=== PATIENT | male | born 1950 | race Caucasian/White ===

== ENCOUNTER 2022-08-03 12:00 | Outpatient (CLI) | payer MEDICARE, OTHER, SELFPAY | END 2022-08-03 12:01 | disposition home or self-care (01) | PROVIDERS: PCP Internal Medicine; Visit Provider Internal Medicine | DX: Z00.00 Encounter for general adult medical examination without abnormal findings (principal); I10 Essential (primary) hypertension; Z13.6 Encounter for screening for cardiovascular disorders | CPT/HCPCS: 80048; 80061 ==

== ENCOUNTER 2023-01-25 11:15 | Outpatient (REF) | payer MEDICARE, OTHER, SELFPAY ==
[2023-01-25 11:44] LABS: Basophils Percent Auto 1.3 % (0.0-3.0); Eosinophils Percent Auto 7.3 % (0.0-7.0); Hematocrit 40.5 % (37.0-53.0); Hemoglobin* 13.7 gm/dL (13.5-17.5); Immature Granulocytes Pct Auto 0.3 %; Lymphocytes Percent Auto 14.1 % (20-44); Mean Corpuscular HGB Conc 34 gm/dL (32-36); Mean Corpuscular Hemoglobin 31 pg (26-34); Mean Corpuscular Volume 91 fL (80-100); Monocytes Percent Auto 25.3 % (0.0-11.0); Neutrophils Percent Auto 51.7 % (42.0-72.0); Platelet Count* 228 K/uL (140-440); RDW Coefficient of Variation % 13.2 % (11.5-15.5); Red Blood Count 4.47 m/uL (4.30-5.90); White Blood Count* 3.83 K/uL (4.50-11.00)
[2023-01-25 12:04] LABS: Slide Review Reflex No
== END 2023-01-25 11:16 | disposition home or self-care (01) ==
LOC: NFLDREF 11:15
PROVIDERS: PCP Internal Medicine
DX: C88.0 Waldenstrom macroglobulinemia (principal); D70.2 Other drug-induced agranulocytosis; Z79.899 Other long term (current) drug therapy
CPT/HCPCS: 85025

== ENCOUNTER 2023-02-01 12:05 | Outpatient (REF) | payer MEDICARE, OTHER, SELFPAY ==
[2023-02-01 12:32] LABS: Basophils Percent Auto 1.2 % (0.0-3.0); Eosinophils Percent Auto 4.1 % (0.0-7.0); Hematocrit 41.5 % (37.0-53.0); Hemoglobin* 13.7 gm/dL (13.5-17.5); Immature Granulocytes Pct Auto 0.5 %; Mean Corpuscular HGB Conc 33 gm/dL (32-36); Mean Corpuscular Hemoglobin 30 pg (26-34); Mean Corpuscular Volume 92 fL (80-100); Monocytes Percent Auto 20.5 % (0.0-11.0); Neutrophils Percent Auto 61.7 % (42.0-72.0); Platelet Count* 246 K/uL (140-440); RDW Coefficient of Variation % 13.7 % (11.5-15.5); Red Blood Count 4.53 m/uL (4.30-5.90); White Blood Count* 4.34 K/uL (4.50-11.00)
[2023-02-01 12:34] LABS: Slide Review Reflex No
== END 2023-02-01 12:06 | disposition home or self-care (01) ==
LOC: NPINS 12:05
PROVIDERS: PCP Internal Medicine
DX: C88.0 Waldenstrom macroglobulinemia (principal); D70.2 Other drug-induced agranulocytosis; Z79.899 Other long term (current) drug therapy
CPT/HCPCS: 85025

== ENCOUNTER 2023-03-01 11:10 | Outpatient (REF) | payer MEDICARE, OTHER, SELFPAY ==
[2023-03-01 12:56] LABS: Basophils Absolute Auto 0.03 K/uL (0.00-0.30); Basophils Percent Auto 0.3 % (0.0-3.0); Eosinophils Absolute Auto 0.16 K/uL (0.00-0.50); Eosinophils Percent Auto 1.9 % (0.0-7.0); Hematocrit 43.1 % (37.0-53.0); Hemoglobin* 14.1 gm/dL (13.5-17.5); Immature Granulocytes Abs Auto 0.27 K/uL (0.00-0.30); Immature Granulocytes Pct Auto 3.1 %; Lymphocytes Percent Auto 6.8 % (20-44); Mean Corpuscular HGB Conc 33 gm/dL (32-36); Mean Corpuscular Hemoglobin 31 pg (26-34); Mean Corpuscular Volume 94 fL (80-100); Neutrophils Percent Auto 73.9 % (42.0-72.0); Platelet Count* 253 K/uL (140-440); RDW Coefficient of Variation % 13.5 % (11.5-15.5); Red Blood Count 4.61 m/uL (4.30-5.90); White Blood Count* 8.62 K/uL (4.50-11.00)
[2023-03-01 12:57] LABS: Albumin* 4.1 g/dL (3.3-5.0); Chloride* 92 mmol/L (96-114)
[2023-03-01 12:58] LABS: Potassium* 3.1 mmol/L (3.6-5.1); Slide Review Reflex No; Sodium* 139 mmol/L (135-149)
[2023-03-01 13:00] LABS: Anion Gap 12 mEq/L (7-15); Aspartate Amino Transferase* 34 U/L (12-35); Blood Urea Nitrogen* 17 mg/dL (7-30); Carbon Dioxide* 35 mmol/L (20-32); Estimated Glomerular Filt Rate 79 ml/min; Total Protein* 6.7 g/dL (6.0-8.3)
[2023-03-01 13:01] LABS: Alanine Aminotransferase* 16 U/L (4-50); Alkaline Phosphatase* 62 U/L (40-150); Calcium* 9.2 mg/dL (8.4-10.6); Glucose* 155 mg/dL (60-115)
[2023-03-03 02:15] LABS: Immunoglobulin M 203 mg/dL (35-263)
== END 2023-03-01 11:11 | disposition home or self-care (01) ==
LOC: NPINS 11:10
PROVIDERS: PCP Internal Medicine; Visit Provider Internal Medicine Hematology
DX: C88.0 Waldenstrom macroglobulinemia (principal)
CPT/HCPCS: 80053; 82784; 85025

== ENCOUNTER 2024-01-13 15:58 | Outpatient (CLI) | payer MEDICARE, OTHER, SELFPAY ==
--- OUTSIDE RECORDS SUMMARY | 2024-01-13 15:39 | XMS_ITS | Clinical Summary ---
Author Organization [facility] Address [place], [place] [address] Care Team Providers Care Vocational Education Teacher Name Role Phone Pcp, No Primary Care Provider Unavailabl e Allergies Active Allergy Reactions Criticality Noted Date Comments Azithromycin 08/19/2006 intol diarrhea Medications Medication Sig Dispensed Refills Start Date End Date Status ASPIRIN 81 MG TAB take 1 tablet (81mg) by oral route once daily 0 Active multivitamin (MVI) tablet Take 1 tablet by mouth once daily. 0 03/20/2011 Active riTUXimab (RITUXAN) 10 mg/mL injection Inject intravenous one time. One time weekly for 4 weeks 0 01/27/2013 Active hydrochlorothiazid e (HCTZ) 25 mg tabletIndications: hypertension Take 1 tablet by mouth once daily. Indications: HYPERTENSION 90 tablet 3 01/27/2013 Active Active Problems Problem Noted Date Diagnosed Date Abnormal abdominal CT scan 06/02/2011 Overview (06/02/2011): Colonoscopy 05/2011 normal repeat in 10 years Aortic root dilation 12/01/2010 Overview (03/20/2011): 4.4 cm ascending aorta. ultrasound in 1 year Unspecified essential hypertension 08/19/2006 Macroglobulinemia 08/19/2006 Overview (08/19/2006): with peripheral neuropathy Unspecified sleep apnea 08/19/2006 Overview (08/19/2006): uses CPAP Diplopia 08/19/2006 Other specified pervasive de velopmental disorders, current or active state 08/19/2006 Overview (08/19/2006): aspergers syndrome Other specified idiopathic peripheral neuropathy Melanoma in situ of upper extremity Overview (09/13/2008): left shoulder. 09/08 Immunizations Name Administration Dates Next Due AMB Influenza, IIV3 (Age >=3 years)(Flu [facility]) 02/18/2012 Influenza, IIV3 (Age >=3 years) 03/29/2013 Family History Medical History Relation Name Comments Cancer Father blood Other Father parkinsons Cancer-breast Mother Other Mother Guillain-[place] syndrome/peripheral neuropathy Other Son [place] Relation Name Status Comments Father (Age 73) parkinsons /blood ca Mother Alive Son Social History Tobacco Use Types Packs/Day Years Used Date Smoking Tobacco: Never Smokeless Tobacco: Never Tobacco Cessation:Counseling Given: Yes Alcohol Use Standard Drinks/Week Comments Yes 0 (1 standard drink = 0.6 oz pur e alcohol) occas Sex and Gender Information Value Date Recorded Sex Assigned at Not on file Gender Identity Not on file Sexual Orientation Not on file Obstetrics History Last Filed Vital Signs Vital Sign Reading Time Taken Comments Blood Pressure 115/66 01/27/2013 7:36 AM CDT Pulse 91 01/27/2013 7:36 AM CDT Temperature 36.6 ??C (97.9 ??F) 01/27/2013 7:36 AM CD T Respiratory Rate - - Oxygen Saturation 98% 01/27/2013 7:36 AM CDT Inhaled Oxygen Concentration - - Weight 81.6 kg (179 lb 12.8 oz) 01/27/2013 7:36 AM CDT Height 188 cm (6' 2.02) 01/27/2013 7:36 AM CDT Body Mass Index 23.07 01/27/2013 7:36 AM CDT Plan of Treatment Health Maintenance Due Date Last Done Comments Tdap 1959 Depression screening for age 12+ 1960 BMI (ht and wt on same day) for age 18+ 1966 Hepatitis C screening for age 18-79 1966 Tetanus booster 1968 Zoster (shingles) series for age 50+ (1 of 2) 1998 RSV vaccine for adults or pr egnancy (1 - 1-dose 60+ series) 2008 Pneumococcal series for age 65+ (1 of 1 - PCV) 2013 Lipids for age 45-75 12/31/2016 01/01/2012, 08/23/2008, 08/11/2007 Colonoscopy through age 75 06/02/202106/02, 11/07/2010 (Declined) COVID-19 vaccine series ( season) 2024 Influenza for age 65+ 01/02/2024 03/29/2013, 012 Procedures Procedure Name Priority Date/Time Associated Diagnosis Comments LIPID PANEL W REFLEX MEASURED LDL Routine 01/01/2012 10:37 AM CDT Screening for other and unspecified cardiovascular conditions from Last 3 Months or Most Recently Relevant to Health Maintenance Results * (ABNORMAL) LIPID PANEL W REFLEX MEASURED LDL (01/01/2012 10:37 AM CDT) CHOLESTEROL,TOTAL 112 100 - 199 mg/dL 01/01/2012 11:28 AM [facility] TRIGLYCERIDES 76 <150 mg/dL 01/01/2012 11:28 AM [facility] HDL CHOLESTEROL 30(L) >40 mg/dL 2 11:28 AM [facility] CHOL/HDL RATIO 3.73 <4.50 01/01/2012 11:28 AM [facility] LDL CHOLESTEROL 67 >=0 mg/dL 2 11:28 AM [facility] PATIENT STATUS FASTING 01/01/2012 11:28 AM [facility] Blood specimen (specimen) BLOOD SPECIMEN / Unknown 01/01/2012 10:37 AM CDT 01/01/2012 10:37 AM CDT Gamal Browne MD CHEMISTRY [facility] [address] [place] [address] from Last 3 Months or Most Recently Relevant to Health Maintenance Care Teams Vocational Education Teacher Relationship Specialty Start Date End Date Pcp, No . PCP - General 05/29/13
--- OUTSIDE RECORDS SUMMARY | 2024-01-13 15:40 | XMS_ITS ---
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 09/08 Neuropathy Peripheral 07/17/2016 Waldenstrom's Macroglobulinemia 03/27/2015 Ectasia Thoracic Aortic 12/01/2010 Overview (02/04/2018): Overview: 4.4 cm ascending aorta. ultrasound in 1 year Asperger's Disorder 08/19/2006 Overview (02/04/2018): Overview: aspergers syndrome Current Oncology Plans Zanubrutinib* Plan Start Date:12/31/2022 Plan Provider:Justin Snider M.D., Ph.D. Linked Problems Neutropenia Drug Induced (HC C)Waldenstrom's Macroglobulinemia (HCC) Treatment Medications Current Day (Day 1 , Cycle 5 - Planned for 11/22/2023) Next Day (Day 1, Cycle 6 - Planned for 12/20/2023) zanubrutinib (Brukinsa) zanubrutinib (Br ukinsa) 80 mg capsule zanubrutinib (Brukinsa) 80 mg capsule Past Plans Flushes/Hydration Plan Name Start Date Discontinue Date Treatment Medications Discontinue Reason Plan Provider VASCULAR ACCESS PATENCY - PERIPHERAL INTRAVENOUS CATHETER AND RAPID INFUSION CATHETER 02/14/2018 01/20/2019 No medications scheduled. Upgrade 2019 Therapy Plan Conversion - Hematology / Oncology Treatment 1 Plan Name Start Date Discontinue Date Treatment Medications Discontinue Reason Plan Provider Cycles RiTUXimab / Bendamustine 90 mg/m2 02/15/20 18 09/02/2020 bendamustine (Bendeka) IVPB (25 mg/mL vial) (Bendeka)riTUXi mab (Rituxan) IVPB (RESTRICTED) (Rituxan) Unlisted Justin Snider M.D., Ph.D. 6 of 6 cycles started Radiation Treatments * Plan Last Treated On Elapsed Days Fractions Treated Prescribed Fraction Dose Prescribed Total Dose 1_LtNasalAl a 01/10/2024 14 10 of 10 450 cGy 4,500 cGy 1_LtNasalAl a 12/27/2023 0 1 of 10 450 cGy 4,500 cGy [id number] 12/29/2022 4 5 of 5 400 cGy 2,000 cGy Reference Point Last Treated On Elapsed Days Session Dose Total Dose [id number] 01/10/2024 14 450 cGy 4,500 cGy [id number] 12/27/2023 0 450 cGy 450 cGy [id number] L Spine 12/29/2022 4 400 cGy 2,000 cG y Resolved Problems Problem Noted Date Diagnosed Date Resolved Date Mass Spinal Cord 12/23/2022 08/12/2023 Weakness General 05/18/2018 08/12/2023 Mass Spine Cervical 02/04/2018 08/12/19 24 Neutropenia Chemotherapy Induced 05/16/2015 02/04/2018
--- OUTSIDE RECORDS SUMMARY | 2024-01-13 15:40 | XMS_ITS | Encounter Summary ---
Author Organization [facility] Address [address] [place] [id number] Care Team Providers Care Rn Long Term Care Name Role Phone Elsewhere, Pcp Primary Care Provider Unavailabl e Encounter Details Date Type Department Care Team (Late st Contact Info) Description 01/06/2024 8:13 AM CDT Hospital Encounter Department of Radiation Oncology in [place], [place] [address] [place] [phone] Chris Field M.D. [address] [place] [phone] Social History Tobacco Use Types Packs/Day Years Used Date Smoking Tobacco: Never Passive Smoke Exposure: Never Smokeless Tobacco: Never Alcohol Use Standard Drinks/Week Comments Not Currently 0 (1 standard drink = 0.6 oz pur e alcohol) less than 1 [facility] Utilities Answer Date Recorded In the past 12 months has Retail [employer]iv[employer] Trader, gas, oil, or water [employer] threatened to shut off services in your home? No 08/02/2023 Humiliation, Afraid, Rape, and Kick questionnair e Answer Date Recorded Within the last year, have y ou been afraid of your partner or ex-partner? No 05/30/2022 Within the last year, have y ou been humiliated or emotionally abused in other ways by your partner or ex-partner? No Within the last year, have y ou been kicked, hit, slapped, or otherwise physically hurt by your partner or ex-partner? No 05/30/2022 Within the last year, have y ou been raped or forced to have any kind of sexual activity by your partner or ex-partner? No 05/30/2022 Social Connection and Isolat ion Panel [NHANES] Answer Date Recorded In a typical week, how many times do you talk on the phone with family, friends, or neighbors? More than three times a week 05/30/2022 How often do you get togethe r with friends or relatives? Once a week 05/30/2022 How often do you attend chur ch or christian services? Never 05/30/2022 Do you belong to any clubs o r organizations such as congregational groups, unions, fraternal or athletic groups, or school groups? No 05/30/2022 How often do you attend meet ings of the clubs or organizations you belong to? Never 05/30/2022 Are you , , di vorced, , never , or living with a partner? 05/30/2022 AUDIT-C Answer Date Recorded Q1: How often do you have a drink containing alc ohol? Monthly or less 05/30/2022 Q2: How many drinks containi ng alcohol do you have on a typical day when you are drinking? 1 or 2 05/30/2022 Q3: How often do you have si x or more drinks on one occasion? Never 05/30/2022 Overall Financial Resource Strain (CARDIA) Answe r Date Recorded How hard is it for you to pa y for the very basics like food, housing, medical care, and heating? Somewhat hard 05/30/2022 [facility] of Occupat ional Health - Occupational Stress Questionnaire Answer Date Recorded Do you feel stress - tense, restless, nervous, or anxious, or unable to sleep at night because your mind is troubled all the time - these days? Not at all 05/30/2022 Exercise Vital Sign Answer Date Recorde d On average, how many days pe r week do you engage in moderate to strenuous exercise (like a brisk walk)? 7 days 08/02/2023 On average, how many minutes do you engage in exercise at this level? 60 min 08/02/2023 Hunger Vital Sign Answer Date Recorded Within the past 12 months, y ou worried that your food would run out before you got the money to buy more. Never true 08/02/19 24 Within the past 12 months, t he food you bought just didn't last and you didn't have money to get more. Never true 08/02/2023 PRAPARE - Transportation Answer Date Re corded In the past 12 months, has l ack of transportation kept you from medical appointments or from getting medications? No 05/2023 In the past 12 months, has l ack of transportation kept you from meetings, work, or from getting things needed for daily living? No 08/02/2023 Nutrition Answer Date Recorded On average, how many serving s of fruits and vegetables do you eat per day (serving size is equal to 1 cup or approximately the size of a tennis ball)? 0-2 08/02/2023 Dental Answer Date Recorded Dental: Regular Dentist Yes 05/15/19 Employment Answer Date Recorded Employment status Retired 08/02/2023 Housing Stability Answer Date Recorded What is your living situation today? I have a [facility] place to live 08/02/2023 Education Answer Date Recorded What is the highest level of school you have completed or the highest degree you have received? Bachelor's degree (e.g., BA, AB, BS) 10/08/2018 Sex and Gender Information Value Date Recorded Sex Assigned at Male 09/16/2017 7:50 PM CDT Gender Identity Male 09/16/2017 7:50 PM CDT Sexual Orientation Straight 09/16/2017 7: 50 PM CDT documented as of this encounter Plan of Treatment Upcoming Encounters Date Type Department Care Team (Late st Contact Info) Description 02/02/2024 1:30 PM CDT Appointment Department of Laboratory Medicine in [address] [phone] Justin Snider M.D., Ph.D. [address] [place] [phone] 02/03/2024 1:30 PM CDT Virtual Visit Division of Hematology in [place], [place] [address] [place] [phone] Justin Snider M.D., Ph.D. [address] [place] [phone] documented as of this encounter Visit Diagnoses Not on filedocumented in this encounter Additional Health Concerns Infection Onset Date Last Indicated Resolved Time Protective Environment 12/31/2022 12/31/2022 documented as of this encounter Care Teams Rn Long Term Care Relationship Specialty Start Date End Date Elsewhere, Pcp PCP - General Internal Medicine 11/12/21 documented as of this encounter
--- OUTSIDE RECORDS SUMMARY | 2024-01-13 15:40 | XMS_ITS | Encounter Summary ---
Author Organization [facility] Address [address] [place] [phone] Care Team Providers Care Continuity Director Name Role Phone Elsewhere, Pcp Primary Care Provider Unavailabl e Reason for Referral * Radiation Therapy (Routine) - Closed Specialty Diagnoses / Procedures Referred By Contac t Referred To Contact Diagnoses Secondary Malignant Neoplasm Bone (HCC) Procedures Management Visit Chris Field M.D. [address] [place] [phone] [facility] Referral ID Status Reason Start Date Expiration Date Visits Re quested Visits Authorized [id number] Closed 12/09/2023 12/08/2024 2 2 Reason for Visit * Radiation Therapy (Routine) - Closed Specialty Diagnoses / Procedures Referred By Contac t Referred To Contact Diagnoses Secondary Malignant Neoplasm Bone (HCC) Procedures Management Visit Chris Field M.D. [address] [place] [phone] [facility] Referral ID Status Reason Start Date Expiration Date Visits Re quested Visits Authorized [id number] Closed 12/09/2023 12/08/2024 2 2 Encounter Details Date Type Department Care Team (Latest Contact Info) Description 01/04/2024 8:42 AM CDT - 01/04/2024 11:41 AM CDT Hospital Encounter Department of Radiation Oncology in [place], [place] [address] [place] [phone] Chris Field M.D. [address] [place] [phone] Secondary Malignant Neoplasm Bone (HCC) Social History Tobacco Use Types Packs/Day Years Used Date Smoking Tobacco: Never Passive Smoke Exposure: Never Smokeless Tobacco: Never Alcohol Use Standard Drinks/Week Comments Not Currently 0 (1 standard drink = 0.6 oz pur e alcohol) less than 1 [facility] Utilities Answer Date Recorded In the past 12 months has e [employer], gas, oil, or water [employer] threatened to shut off services in your [...] often do you attend chur ch or taoism services? Never 05/30/2022 Do you belong to any clubs o r organizations such as buddhist groups, unions, fraternal or athletic groups, or [...] medical care, and heating? Somewhat hard 05/30/2022 [facility] of Occupat ional Health - Occupational [...] your living situation today? I have a [facility] place to live 08/02/2023 Education Answer Date [...] PM CDT documented as of this encounter Last Filed Vital Signs Vital Sign Reading Time Taken Comments Blood Pressure - - Pulse - - Temperature - - Respiratory Rate - - Oxygen Saturation - - Inhaled Oxygen Concentration - - Weight 93.3 kg (205 lb 11 oz) 01/04/2024 9:27 AM CDT Height - - Body Mass Index 26.57 11/11/2023 1:26 PM CDT documented in this encounter Medications at Time of Discharge Medication Sig Dispensed Refills Start Date End Date aspirin [address] tablet Take 81 mg by mouth daily. 03/27/2015 hydroCHLOROthiazide (HydroDiuril) 25 mg tablet take 1 tablet daily 90 tablet 3 12/01/2023 magnesium oxide 400 mg magnesium capsule Take 400 mg by mouth daily. multivitamin tablet Take 1 tablet by mouth daily. potassium chloride (KLOR-CON SPRINKLE) 10 mEq ER sprinkle capsule Take 10 mEq by mouth daily. 08/01/2018 zanubrutinib (Brukinsa) 80 mg capsuleIndications:Neutrop enia Drug Induced (HCC),Waldenstrom's Macroglobulinemia (HCC) Take 2 capsules (160 mg total) by mouth 2 (two) times a day. 112 capsule 11 11/22/2023 documented as of this encounter Plan of Treatment Upcoming Encounters Date Type Department Care Team (Late st Contact Info) Description 02/02/2024 1:30 PM CDT Appointment Department of Laboratory Medicine in [address] [phone] Justin Snider M.D., Ph.D. [address] [place] [phone] 02/03/2024 1:30 PM CDT Virtual Visit Division of Hematology in [place], [place] 200 [place] [phone] Justin Snider M.D., Ph.D. [address] [place] [phone] Scheduled Orders Name Type Priority Associated Diagnoses Orde r Schedule Management Visit Radiation Oncology Routine Secondary Malignant Neoplasm Bone (HCC) Once for 1 Occurrences starting 01/04/2024 until 01/04/2024 documented as of this encounter Visit Diagnoses Diagnosis Secondary Malignant Neoplasm Bone (HCC) documented in this encounter Additional Health Concerns Infection Onset Date Last Indicated Resolved Time Protective Environment 12/31/2022 12/31/2022 documented as of this encounter Care Teams Continuity Director Relationship Specialty Start Date End Date Elsewhere, Pcp PCP - General Internal Medicine 11/12/21 documented as of this encounter
--- OUTSIDE RECORDS SUMMARY | 2024-01-13 15:40 | XMS_ITS | Encounter Summary ---
Author Organization [facility] Address [address] [place] [address] Care Team Providers Care Case Maker Name Role Phone Elsewhere, Pcp Primary Care Provider Unavailabl e Encounter Details Date Type Department Care Team (Late st Contact Info) Description 01/05/2024 8:16 AM CDT Hospital Encounter Department of Radiation Oncology in [place], [place] [address] [place] [phone] Chris Field M.D. [address] [place] [phone] Social History Tobacco Use Types Packs/Day Years Used Date Smoking Tobacco: Never Passive Smoke Exposure: Never Smokeless Tobacco: Never Alcohol Use Standard Drinks/Week Comments Not Currently 0 (1 standard drink = 0.6 oz pur e alcohol) less than 1 [facility] Utilities Answer Date Recorded In the past 12 months has [employer], gas, oil, or water [employer] threatened to shut off services in your [...] often do you attend chur ch or latter day services? Never 05/30/2022 Do you belong to any clubs o r organizations such as anglican groups, unions, fraternal or athletic groups, or [...] medical care, and heating? Somewhat hard 05/30/2022 [facility] Occupat ional Health - Occupational Stress [...] your living situation today? I have a [facility] place to live 08/02/2023 Education Answer Date [...] CDT Appointment Department of Laboratory Medicine in [address] [phone] Justin Snider M.D., Ph.D. [address] [place] [phone] 02/03/2024 1:30 PM CDT Virtual Visit Division of Hematology in [place], [place] [address] [place] [phone] Justin Snider M.D., Ph.D. [address] [place] [phone] documented as of this encounter Visit Diagnoses Not on filedocumented in this encounter Additional Health Concerns Infection Onset Date Last Indicated Resolved Time Protective Environment 12/31/2022 12/31/2022 documented as of this encounter Care Teams Case Maker Relationship Specialty Start Date End Date Elsewhere, Pcp PCP - General Internal Medicine 11/12/21 documented as of this encounter
--- OUTSIDE RECORDS SUMMARY | 2024-01-13 15:40 | XMS_ITS | Referral Summary ---
Author Organization [facility] Address [address] [place] [address] Care Team Providers Care Client Care Consultant Name Role Phone Elsewhere, Pcp Primary Care Provider Unavailabl e Source Comments Patient records contain information from all sites at [facility]. For routine questions regarding patient records, call [phone] during business hours, M-F 8:00 AM - 5:00 PM Central Time. Record requests for emergency care only can be directed to [phone] at any time.[facility] Encounters Date Type Department Care Team Description 01/10/2024 8:15 AM CDT Hospital Encounter Department of Radiation Oncology in [place], [place] [address] [place] [phone] Chris Field M.D. 01/07/2024 8:18 AM CDT Hospital Encounter Department of Radiation Oncology in [place], [place] [address] [place] [phone] Chris Field M.D. 01/06/2024 8:13 AM CDT Hospital Encounter Department of Radiation Oncology in [place], [place] [address] [place] [phone] Chris Field M.D. 01/05/2024 8:16 AM CDT Hospital Encounter Department of Radiation Oncology in [place], [place] [address] [place] [phone] Chris Field M.D. 01/04/2024 8:42 AM CDT - 01/04/2024 11:41 AM CDT Hospital Encounter Department of Radiation Oncology in [place], [place] [address] [place] [phone] Chris Field M.D. Secondary Malignant Neoplasm Bone (HCC) 01/04/2024 8:19 AM CDT Hospital Encounter Department of Radiation Oncology in [place], [place] [address] [place] [phone] Chris Field M.D. 12/31/2023 8:05 AM CDT Hospital Encounter Department of Radiation Oncology in [place], [place] [address] [place] [phone] Chris Field M.D. 12/30/2023 8:06 AM CDT Hospital Encounter Department of Radiation Oncology in [place], [place] [address] [place] [phone] Chris Field M.D. 12/29/2023 8:04 AM CDT Hospital Encounter Department of Radiation Oncology in [place], [place] [address] [place] [phone] Chris Field M.D. 12/28/2023 Clinical Communication Division of Hematology in [place], [place] [address] [place] [phone] Justin Snider M.D., Ph.D. Scheduling 12/28/2023 9:02 AM CDT Hospital Encounter Department of Radiation Oncology in [place], [place] [address] [place] [phone] Chris Field M.D. Melanoma Malignant Skin Nose (HCC) (Primary Dx); Secondary Malignant Neoplasm Bone (HCC) 12/28/2023 8:26 AM CDT Hospital Encounter Department of Radiation Oncology in [place], [place] [address] [place] [phone] Chris Field M.D. 12/27/2023 8:25 AM CDT Hospital Encounter Department of Radiation Oncology in [place], [place] [address] [place] [phone] Chris Field M.D. 12/26/2023 [facility] Remote Patient Monitoring [place] [address] [address] [place] [address] [facility] M[facility] Ph.D. 12/13/2023 5:57 PM CDT - 12/13/2023 11:59 PM CDT Hospital Encounter Department of Radiology, [facility], in [place], [place] [address] [place] [phone] Chris Field M.D. Melanoma Malignant Skin Nose (HCC) Discharge Disposition: Home or Self Care 12/09/2023 12:48 PM CDT - 12/09/2023 11:59 PM CDT Hospital Encounter Department of Radiation Oncology in [place], [place] [address] [place] [phone] Chris Field M.D. Melanoma Malignant Skin Nose (HCC) Discharge Disposition: Home or Self Care 12/07/2023 Clinical Communication Department of Radiation Oncology in [place], [place] [address] [place] [phone] Chris Field M.D. 12/07/2023 9:00 AM CDT - 12/07/2023 1:40 PM CDT Hospital Encounter Department of Radiation Oncology in [place], [place] [address] [place] [address] Irena Pradhan M.D. Melanoma Malignant Skin Nose (HCC) 11/30/2023 Ancillary Procedure Department of Dermatology 11/30/2023 8:00 AM CDT Procedure visit Department of Dermatology in [place], [place] [address] [place] [phone] Oliverio Toussaint M.D., M.S. Melanoma Malignant Skin Nose (HCC) Discharge Disposition: Home or Self Care 11/25/2023 CPAP Download Remote Patient Monitoring [facility] [address] [place] [address] [facility] M[facility]., Ph.D. 11/23/2023 Refill Department of Cardiovascular Medicine in [place], [place] [address] [place] [phone] Ysabel Vela M.D., M.P.H. Med Refill 11/22/2023 Orders Only Division of Hematology in [place], [place] [address] [place] [phone] Justin Snider M.D., Ph.D. 11/22/2023 Clinical Communication [facility] [address] [facility] [place] [phone] Lauren Meier C.Ph.T. Med Refill 11/19/2023 Refill Division of Hematology in [place], [place] [address] [place] [phone] Nathanael Goldstein M.D. Med Refill 11/11/2023 Clinical Communication [facility] in [place], [place] [address] [place] [phone] Justin Snider M.D., Ph.D. Lab Monitoring 11/11/2023 9:30 AM CDT - 11/11/2023 11:59 PM CDT Hospital Encounter Department of Laboratory Medicine and Pathology, [facility], in [place], [place] [address] [place] [phone] Justin Snider M.D., Ph.D. Waldenstrom's Macroglobulinemia (HCC) Discharge Disposition: Home or Self Care 11/11/2023 1:30 PM CDT Office Visit Division of Hematology in [place], [place] [address] [place] [phone] Justin Snider M.D., Ph.D. Lymphoplasmacytic Lymphoma (HCC) (Primary Dx); Waldenstrom's Macroglobulinemia (HCC) 11/09/2023 9:00 AM CDT Clinical Communication Virtual Review in [place], [place] 200 [place] [address] Pre-visit Intake 10/26/2023 Clinical Communication Department of Dermatology in [address] [phone] Prescheduling , Provider Appt Request 10/26/2023 Orders Only Department of Dermatology in [address] [phone] Mica Inman M.D. Melanoma Malignant Skin Nose (HCC) (Primary Dx) 10/25/2023 CPAP Download Remote Patient Monitoring [facility] [address] [place] [address] [facility], Rosa Ann, Ph.D. 10/15/2023 12:05 AM CDT Ancillary Procedure Department of Dermatology 10/15/2023 Ancillary Procedure Department of Dermatology 10/15/2023 11:00 AM CDT Office Visit Department of Dermatology in [place], [place] [address] [place] [address] Mica Inman M.D. Personal History Of Other Malignant Neoplasm Of Skin (Primary Dx); Dermatoheliosis; Other Melanin Hyperpigmentation; Nevi Multiple; Screening Examination Skin Cancer; Melanoma Personal History; Immunodeficiency Due To Drugs (HCC); Tumor Skin Uncertain Behavior; Keratosis Seborrheic Discharge Disposition: Home or Self Care from Last 3 Months Allergies Active Allergy Reactions Criticality Noted Date Comments Amoxicillin Other (see comments) 12/30/2017 Amoxicillin-induced aseptic meningitis Azithromycin Diarrhea 08/19/2006 intol ??diarrhea low bp Dexamethasone (Pf) Other (see comments) High 019 Muscle fatigue and weakness Rituximab Rash 03/27/2015 Medications Medication Sig Dispensed Refills Start Date End Date Status aspirin [address] tablet Take 81 mg by mouth daily. 03/27/2015 Active potassium chloride (KLOR-CON SPRINKLE) 10 mEq ER sprinkle capsule Take 10 mEq by mouth daily. 08/01/2018 Active magnesium oxide 400 mg magnesium capsule Take 400 mg by mouth daily. Active multivitamin tablet Take 1 tablet by mouth daily. Active zanubrutinib (Brukinsa) 80 mg capsuleIndications:Neut ropenia Drug Induced (HCC),Waldenstrom's Macroglobulinemia (HCC) Take 2 capsules (160 mg total) by mouth 2 (two) times a day. 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 [...] Disorder 08/19/2006 Overview (02/04/2018): Overview: aspergers syndrome Resolved Problems Problem Noted Date Diagnosed Date Resolved Date Mass Spinal Cord 12/23/2022 08/12/2023 Weakness General 05/18/2018 08/12/2023 Mass Spine Cervical 02/04/2018 08/12/19 24 Neutropenia Chemotherapy Induced 05/16/2015 02/04/2018 Immunizations Name Administration Dates Next Due Influenza high dose QV(65 ye ars or older) (PF) 02/16/2023,02/03/2022,02/14/2021,2019 Influenza, Seasonal, Injectable 03/29/2013,02/17 PCV13 02/25/2015 PCV20 08/03/2022 PPSV23 08/21/2013 RSV: respiratory syncytial v irus (ABRYSVO) bivalent vaccine 04/08/2023 SARS-COV-2 (COVID-19) - PFIZ ER (Discontinued)(12 years or older) 02/13/2021 SARS-COV-2 (COVID-19) - PFIZ ER TS(Discontinued)(12 years or older) 09/03/2021 Td Preservative Free (TENIVA C, DECAVAC) 08/23/2013 influenza trivalent high dos e (HD)(PF) 01/30/2019,02/01/2018,02/10/2017,2015,01/26/2014 influenza vaccine quad (FLUZONE/FLUARIX) (6 months and older)(PF) 02/25/2015 Social History Tobacco Use Types Packs/Day Years Used Date Smoking Tobacco: Never Passive Smoke Exposure: Never Smokeless Tobacco: Never Tobacco Cessation:Counseling Given: No Alcohol Use Standard Drinks/Week Comments Not Currently 0 (1 standard drink = 0.6 oz pur e alcohol) less than 1 [facility] Utilities Answer Date Recorded In the past 12 months has e [employer], oil, or water [employer] threatened to shut off services in your [...] 05/30/2022 How often do you attend chur or protestant services? Never 05/30/2022 Do you belong to any clubs o r organizations such as mandaeism groups, unions, fraternal or athletic groups, or [...] medical care, and heating? Somewhat hard 05/30/2022 [facility] - Occupational Stress Questionnaire Answer Date Recorded [...] your living situation today? I have a [facility] place to live 08/02/2023 Education Answer Date Recorded What is the highest level of school you have completed or the highest degree you have received? Bachelor's degree (e.g., BA, AB, BS) 10/08/2018 Sex and Gender Information Value Date Recorded Sex Assigned at Male 09/16/2017 7:50 PM CDT Gender Identity Male 09/16/2017 7:50 PM CDT Sexual Orientation Straight 09/16/2017 7: 50 PM CDT Last Filed Vital Signs Vital Sign Reading Time Taken Comments Blood Pressure 131/81 12/07/2023 9:04 AM CDT Pulse 71 12/07/2023 9:04 AM CDT Temperature 36.4 ??C (97.5 ??F) 12/07/2023 9:04 AM CD T Respiratory Rate 23 08/24/2023 2:15 PM CDT Oxygen Saturation 96% 11/11/2023 1:26 PM CDT Inhaled Oxygen Concentration - - Weight 93.3 kg (205 lb 11 oz) 01/04/2024 9:27 AM CDT Height 187.4 cm (6' 1.78) 11/11/2023 1:26 PM CD T Body Mass Index 26.57 11/11/2023 1:26 PM CDT Plan of Treatment Upcoming Encounters Date Type Department Care Team (Late st Contact Info) Description 02/02/2024 1:30 PM CDT Appointment Department of Laboratory Medicine in [address] [phone] Justin Snider M.D., Ph.D. 200 [place] [phone] 02/03/2024 1:30 PM CDT Virtual Visit Division of Hematology in [place], [place] [address] [place] [phone] Justin Snider M.D., Ph.D. [address] [place] [phone] Medical Devices Implanted Type Area Chief Executive Officer Device Identifier Shelf Expiration Date Model / Serial / Lot Clp Apr Lgs Int Sm 9.0 - [id number] Implanted:Qty: 1 on 08/24/2023 by Guru Williamson M.D. at [facility] Hardware e.g. pins/screws/r ods [employer] MCS20 / / Procedures Procedure Name Priority Date/Time Associated Diagnosis Comments ARIA DAILY TREATMENT INFORMATION Routine 01/10/2024 8:26 AM CDT ARIA DAILY TREATMENT INFORMATION Routine 01/07/2024 8:30 AM CDT ARIA DAILY TREATMENT INFORMATION Routine 01/06/2024 8:23 AM CDT ARIA DAILY TREATMENT INFORMATION Routine 01/05/2024 8:28 AM CDT ARIA DAILY TREATMENT INFORMATION Routine 01/04/2024 8:31 AM CDT ARIA DAILY TREATMENT INFORMATION Routine 12/31/2023 8:13 AM CDT ARIA DAILY TREATMENT INFORMATION Routine 12/30/2023 8:20 AM CDT ARIA DAILY TREATMENT INFORMATION Routine 12/29/2023 8:40 AM CDT ARIA DAILY TREATMENT INFORMATION Routine 12/28/2023 8:48 AM CDT ARIA DAILY TREATMENT INFORMATION Routine 12/27/2023 9:05 AM CDT CLINICAL SETUP Routine 12/27/2023 8:30 AM CDT Melanoma Malignant Skin Nose (HCC) CT NECK SOFT TISSUE WITH IV CONTRAST RAD - Routine (most inpatients and all outpatients) 12/13/2023 6:26 PM CDT Melanoma Malignant Skin Nose (HCC) DERMATOLOGY IMAGE EXAM Routine 11/30/2023 12:00 AM CDT IMMUNOGLOBULIN M (IGM), S Routine 11/11/2023 9:57 AM CDT Waldenstrom's Macroglobulinemia (HCC) POTASSIUM, S/P Routine 11/11/2023 9:57 AM CDT Waldenstrom's Macroglobulinemia (HCC) CREATININE WITH EGFR, S/P Routine 11/11/2023 9:57 AM CDT Waldenstrom's Macroglobulinemia (HCC) CBC WITH DIFFERENTIAL, B Routine 11/11/2023 9:57 AM CDT Waldenstrom's Macroglobulinemia (HCC) CALCIUM, TOT, S/P Routine 11/11/2023 9:57 AM CDT Waldenstrom's Macroglobulinemia (HCC) BILIRUBIN, TOT, S/P Routine 11/11/2023 9:57 AM CDT Waldenstrom's Macroglobulinemia (HCC) [id number] (BETA-2-M), S Routine 11/11/2023 9:57 AM CDT Waldenstrom's Macroglobulinemia (HCC) ASPARTATE AMINOTRANSFERASE (AST), S/P Routine 11/11/2023 9:57 AM CDT Waldenstrom's Macroglobulinemia (HCC) ALKALINE PHOSPHATASE, S/P Routine 11/11/2023 9:57 AM CDT Waldenstrom's Macroglobulinemia (HCC) ALBUMIN, S/P Routine 11/11/2023 9:57 AM CDT Waldenstrom's Macroglobulinemia (HCC) DERMATOPATHOLOGY Routine 10/15/2023 11:43 AM CDT Personal History Of Other Malignant Neoplasm Of Skin Dermatoheliosis Other Melanin Hyperpigmentation Nevi Multiple Screening Examination Skin Cancer Melanoma Personal History Immunodeficiency Due To Drugs (HCC) DERMATOLOGY IMAGE EXAM Routine 10/15/2023 12:05 AM CDT DERMATOLOGY IMAGE EXAM Routine 10/15/2023 12:00 AM CDT BASIC METABOLIC PANEL, S/P Routine 08/12/2023 1:05 PM CDT 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 Course ID 2o Nose YEUNG ARIA Course Start Date 4 08:53 CDT YEUNG ARIA First Treatment Date 4 09:05 CDT YEUNG ARIA Last Treatment Date 4 08:26 CDT YEUNG ARIA Treatment Elapsed Days 14 YEUNG ARIA Reference Point [id number] tNasal YEUNG ARIA Dosage Given to Date cGy 4500 YEUNG ARIA Session Dosage Given 450 YEUNG ARIA Plan ID [id number] Ala YEUNG ARIA Fractions Treated to Date 10 YEUNG ARIA Planned Total Fractions 10 YEUNG ARIA Prescribed Dose Per Fraction 450 YEUNG ARIA Prescription Dose in cGy 4500 YEUNG ARIA Plan Primary Reference Point [id number] tNasal YEUNG ARIA 01/10/2024 8:26 AM CDT Provider Not In System RADIATION ONCOLOG Y ORDERABLES Performing Organization Address City/State/[facility] Co de Phone Number ALGONAC MG na * Clinical Setup (12/27/2023 8:30 AM CDT) Narrative YEUNG ARIA - 12/27/2023 8:30 AM CDT Claudia Tai RTT ? 12/27/2023 ??8:33 AM Clinical Setup Performed by: Claudia Tai RTT Authorized by: Chris Field M.D. ?? Chris Garcia Ma, M.D. RADIATION ONCOLOGY O RDERABLES GAMAL HOLLIDAY na * CT Neck Soft Tissue with IV Contrast (12/13/2023 6:26 PM CDT) Anatomical Region Laterality Modality Neck, Neuroradiology RST LOS , Neuroradiology ARZ LOS, Neuroradiology FLA LOS N/A Computed Tomography, Compute d Tomography 12/13/2023 6:23 PM CDT Impressions 12/14/2023 11:21 AM CDT 1. 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 ?? 2. ??No evidence of recurrent lesion along prior resection site of left lip. No cervical adenopathy. 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 History of multiple non-melanoma skin cancers. 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 Resection of a squamous cell carcinoma associated with perineural invasion at the paramedian left lower lip on 07/13/2023. New melanoma of left nasal ala for consideration of radiation treatment. FINDINGS: Compared to prior, no evidence of soft tissue thickening or stranding seen along the prior resection site of the left lower lip. There is soft tissue thickening along the superficial left nasal subcutaneous tissue with loss of fat plane. Associated effacement of the superior nares, new compared prior. No evidence of bony erosion. No evidence of cervical adenopathy. Symmetric bilateral foramina ovale and rotundum. No acute intracranial abnormality. 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 Rest of the paranasal sinuses are clear. Mastoid air cells are clear. Redemonstration of the heavily calcified nodules in the left thyroid lobe. Procedure Note Britton Peck M.D. - 12/14/2023 REVISED REPORT: EXAM: CT NECK SOFT TISSUE WITH IV CONTRAST COMPARISON: CT neck 08/20/2023 HISTORY: History of malignant melanoma of the right medial plantar foot,right posterior upper arm and melanoma in-situ of the right lower abdomens/p wide local excision. 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 Resection of a squamous cell carcinomaassociated with perineural invasion at the paramedian left lower lip on07/13/2023. New melanoma of left nasal ala for consideration of radiationtreatment. FINDINGS: Compared to prior, no evidence of soft tissue thickening orstranding seen along the prior resection site of the left lower lip. Thereis soft tissue thickening along the superficial left nasal subcutaneoustissue with loss of fat plane. Associated effacement of the superior nares, new compared prior. Noevidence of bony erosion. No evidence of cervical adenopathy. Symmetricbilateral foramina ovale and rotundum. No acute intracranial abnormality. Redemonstration of chronic hyperostosisof the atelectatic right maxillary sinus with maxillary antrostomy changeswith minimal mucosal thickening. Rest of the paranasal sinuses are clear.Mastoid air cells are clear. Redemonstration of the heavily calcified nodules in the left thyroidlobe. IMPRESSION: 1. New soft tissue thickening along the superficial left nasalsubcutaneous tissue corresponding with patients reported history of nasalmelanoma with effacement of the left nares. 2. No evidence of recurrent lesion along prior resection site of leftlip. No cervical adenopathy. Chris Garcia Ma, M.D. IMG CT PROCEDURES * nose, left nasal sidewall 17-Dermatology Image Exam (11/30/2023 12:00 AM CDT) Only the most recent of3 resultswithin the time period is included. Narrative IIVA - 11/30/2023 10:36 AM CDT This order has been created and auto-finalized to support the import of images acquired without order. The clinical documentation to support these images can be found on the encounter that produced images. Provider Not In System IMG NON RAD IMAGI NG PROCEDURES IIVA NA * (ABNORMAL) CBC with Differential, Blood (11/11/2023 9:57 AM CDT) Hemoglobin 14.9 13.2 - 16.6 g/dL 11/11/2023 10:38 AM CDT DTL Hematocrit 45.1 38.3 - 48.6 % 11/11/2023 10:38 AM CDT DTL Erythrocytes 4.80 4.35 - 5.65 x10(12)/L 11/11/2023 10:38 AM CDT DTL MCV 94.0 78.2 - 97.9 fL 11/11/2023 10:38 AM CDT DTL RBC Distrib Width 12.9 11.8 - 14.5 % 11/11/2023 10:38 AM CDT DTL Platelet Count 218 135 - 317 x10(9)/L 11/11/2023 10:38 AM CDT DTL Leukocytes 5.6 3.4 - 9.6 x10(9)/L 11/11/2023 10:38 AM CDT DTL Neutrophils 3.78 1.56 - 6.45 x10(9)/L 11/11/2023 10:38 AM CDT DHPM Lymphocytes 0.73(L) 0.95 - 3.07 x10(9)/L 11/11/2023 10:38 AM CDT DTL Monocytes 0.85(H) 0.26 - 0.81 x10(9)/L 11/11/2023 10:38 AM CDT DTL Eosinophils 0.19 0.03 - 0.48 x10(9)/L 11/11/2023 10:38 AM CDT DTL Basophils 0.04 0.01 - 0.08 x10(9)/L 11/11/2023 10:38 AM CDT DTL Blood (Blood, Venous) 11/11/2023 9:57 AM CDT 11/11/2023 10:24 AM CDT Justin Snider M.D., Ph.D. LAB BLOOD A DD-ON [facility] - [facility] [address] [place] [address], [facility] 200 [place] [address] [facility] 200 [place] [address] * AST (Aspartate Aminotransferase) (11/11/2023 9:57 AM CDT) Aspartate Aminotransferase (AST), S 24 8 - 48 U/L 11/11/2023 11:04 AM CDT DTL Blood (Blood, Venous) 11/11/2023 9:57 AM CDT 11/11/2023 10:36 AM CDT Justin Snider M.D., Ph.D. LAB BLOOD A DD-ON [facility] 200 [place], [place] [phone] [place] [address] 200 [place] [address] * Potassium (11/11/2023 9:57 AM CDT) Potassium, S 4.0 3.6 - 5.2 mmol/L 11/11/2023 11:04 AM CDT DTL Blood (Blood, Venous) 11/11/2023 9:57 AM CDT 11/11/2023 10:36 AM CDT Justin Snider M.D., Ph.D. LAB BLOOD A DD-ON [facility] [address] [place] [address] * Alkaline Phosphatase (11/11/2023 9:57 AM CDT) Alkaline Phosphatase, S 77 40 - 129 U/L 11/11/2023 11:04 AM CDT DTL Blood (Blood, Venous) 11/11/2023 9:57 AM CDT 11/11/2023 10:36 AM CDT Justin Snider M.D., Ph.D. LAB BLOOD A DD-ON [facility] [address] [place] [address], [facility] [address] [place] [address] * Immunoglobulin M (IgM) (11/11/2023 9:57 AM CDT) Immunoglobulin M (IgM), S 48 37 - 286 mg/dL 11/11/2023 2:40 PM CDT [facility] Blood (Blood, Venous) 11/11/2023 9:57 AM CDT 11/11/2023 2:04 PM CDT Justin Snider M.D., Ph.D. LAB BLOOD A DD-ON Performing Organization Address [facility] [address]/[facility] Co de Phone Number [facility] [address] [place] [address] [facility] [address] [place] [address] * (ABNORMAL) Creatinine with Estimated GFR (11/11/2023 9:57 AM CDT) Creatinine 1.38(H) 0.74 - 1.35 mg/dL 11/11/2023 11:04 AM CDT DTL Estimated GFR (eGFR) 53(L) >=60 mL/min/BSA 11/11/2023 11:04 AM CDT DT Comment: Estimated GFR calculated using the 2020 CKD_EPI creatinine equation. Blood (Blood, Venous) 11/11/2023 9:57 AM CDT 11/11/2023 10:36 AM CDT Justin Snider M.D., Ph.D. LAB BLOOD A DD-ON Performing Organization Address City/[facility] [address]/ZIP Co de Phone Number [facility] [address] [place] [address], [facility] [address] [place] [address] * Calcium, Total (11/11/2023 9:57 AM CDT) Calcium, Total, S 9.9 8.8 - 10.2 mg/dL 11/11/2023 11:04 AM CDT DTL Blood (Blood, Venous) 11/11/2023 9:57 AM CDT 11/11/2023 10:36 AM CDT Justin Snider M.D., Ph.D. LAB BLOOD A DD-ON Performing Organization Address [facility] [address]/[facility] Co de Phone Number [facility] [address] [place] [address], [facility] 200 [place] [address] * Bilirubin, Total (11/11/2023 9:57 AM CDT) Bilirubin, Total, S 1.0 0.0 - 1.2 mg/dL 11/11/2023 11:04 AM CDT [facility] Blood (Blood, Venous) 11/11/2023 9:57 AM CDT 11/11/2023 10:36 AM CDT Justin Snider M.D., Ph.D. LAB BLOOD A DD-ON Performing Organization Address [facility] [address]/[facility] Co de Phone Number [facility] [address] [place] [address], [facility] 200 [place] [address] * (ABNORMAL) Fzch-6-Otokprxwbgagn (Beta-2-M) (11/11/2023 9:57 AM CDT) Ygzc-1-Veqmtcc obulin, S 3.03(H) 1.21 - 2.70 mcg/mL 11/11/2023 3:52 PM CDT [facility] Blood (Blood, Venous) 11/11/2023 9:57 AM CDT 11/11/2023 2:04 PM CDT Justin Snider M.D., Ph.D. LAB BLOOD A DD-ON Performing Organization Address City/[facility] [address]/ZIP Co de Phone Number [facility] [address] [place] [address] [facility] [address] [place] [address] * Albumin (11/11/2023 9:57 AM CDT) Albumin, S 4.4 3.5 - 5.0 g/dL 11/11/2023 11:04 AM CDT DT Blood (Blood, Venous) 11/11/2023 9:57 AM CDT 11/11/2023 10:36 AM CDT Justin Snider M.D., Ph.D. LAB BLOOD A DD-ON Performing Organization Address [facility] [address]/[facility] Co de Phone Number [facility] [address] [place] [address], [facility] 200 [place] [address] * Dermatopathology (10/15/2023 11:43 AM CDT) 10/25/2023 10:50 AM CDT PDR Participated in the Interpretation Ryan Chopra M.D.-Pathology Fellow 10/25/2023 10:50 AM CDT PDRM Report electronically signed by Debra Mo M.D. Seen in consultation with: Rhonda Frances M.D. 10/25/2023 10:50 AM CDT PDRM Gross Description Received in formalin labeled with the patient's name, medical record number, and designated as left nasal sidewall is a 1.5 x 1.1 cm skinshave biopsy. The skin surface displays a 1.0 x 0.7 cm irregular white lesion. The specimen is serially sectioned and entirely submitted incassette A1. ??Grossed by [id number]. 10/25/2023 10:50 AM CDT PDRM Interpretation FINAL DIAGNOSIS A. ??Left Nasal Sidewall, Skin shave biopsy: ??Malignant melanoma without ulceration, Shorty level III, Breslow thickness at least 0.3 mm (see synoptic report), in association with dermal nevus Melanoma Synoptic Report Histologic Type: ??Lentigo maligna melanoma Maximum Tumor (Breslow) Thickness: ??0.3 mm Macroscopic Satellite Nodule(s): ??Not identified Ulceration: ??Not identified Mitotic Rate: ??0/mm 2 Microsatellite(s) : ??Not identified Lymphovascular Invasion: ??Not identified Neurotropism: ??Not identified Tumor Regression: ??Not identified Tumor Infiltrating Lymphocytes: ??Non-brisk Shorty Level: ??III The tumor cells are immunoreactive for Melan-A and SOX10. Margin Status for Invasive Melanoma: ??Invasive melanoma present at peripheral margin Margin Status for Melanoma in situ: ??Melanoma in situ present at both peripheral and deep margins (via follicular extension). The tumor appears peripherally and superficially transected in this shave biopsy; therefore, final determination of Breslow thickness and T-classification should be made after histopathological examination of the complete excisional specimen. Complete surgical excision with appropriate margins is recommended. Pathologic Stage Classification (pTNM, AJCC 8th Edition): TNM Descriptors (select all that apply): ??not applicable pT Category: ??pT1a COMMENT Clinical photos were reviewed. The synoptic report incorporates information from all relevant surgical material and includes all required data elements of the current CAP Cancer Protocol. A portion of the testing process was performed at [facility] [place] site [id number]. 10/25/2023 10:50 AM CDT PDRM Skin (Left Nasal Sidewall) 10/15/2023 11:42 AM CDT Mica Inman M.D. LAB PATH DERM ORD ERABLES [facility] [address] [place] [address], [place] [facility] [address] [place] [address] * (ABNORMAL) Basic Metabolic Panel (08/12/2023 1:05 PM CDT) Potassium, S 4.0 3.6 - 5.2 mmol/L 08/12/2023 2:02 PM CDT DTL Sodium, S 144 135 - 145 mmol/L 08/12/2023 2:02 PM CDT DTL Chloride, S 100 98 - 107 mmol/L 08/12/2023 2:02 PM CDT DTL Bicarbonate, S 32(H) 22 - 29 mmol/L 08/12/2023 2:02 PM CDT DTL Anion Gap 12 7 - 15 08/12/2023 2:02 PM CDT DTL BUN (Blood Urea Nitrogen), S 17 8 - 24 mg/dL 08/12/2023 2:02 PM CDT DTL Creatinine 1.27 0.74 - 1.35 mg/dL 08/12/2023 2:02 PM CDT DTL Estimated GFR (eGFR) 59(L) >=60 mL/min/BSA 08/12/2023 2:02 PM CDT DTL Comment: Estimated GFR calculated using the 2020 CKD_EPI creatinine equation. Calcium, Total, S 9.8 8.8 - 10.2 mg/dL 08/12/2023 2:02 PM CDT DTL Glucose, S 94 70 - 140 mg/dL 08/12/2023 2:02 PM CDT DTL Blood (Blood, Venous) 08/12/2023 1:05 PM CDT 08/12/2023 1:42 PM CDT Guru Williamson M.D. LAB BLOOD ADD-ON [facility] [address] [place] [address], [facility] [address] [place] [address] * HCV Ab Scrn w/Reflex to HCV PCR (02/14/2018 8:16 AM CDT) HCV Ab Screen, S Negative Negative 02/14/2018 12:56 PM CDT [facility] Comment:Idnfld-fo-xgssxb rat io is <1.00. Blood (Blood, Venous) 02/14/2018 8:16 AM CDT 02/14/2018 10:25 AM CDT Justin Snider M.D., Ph.D. LAB MICROBI OLOGY - BLOOD ORDERABLES [facility] [address] [place] [address] from Last 3 Months or Most Recently Relevant to Health Maintenance Additional Health Concerns Infection Onset Date Last Indicated Protective Environment 12/31/2022 3 Advance Directives For more information, please contact: [phone] Documents on File Type Date Recorded Patient Formula Technician Expl anation Advance Directives 05/17/2015 12:00 AM Kasey bonilla document. See document viewer. Advance Directives 04/01/2015 12:00 AM Laine martin document. See document viewer. * DNR/DNI (Latest Code Status on File) Date Activated Date Inactivated Comments 12/23/2022 3:58 PM 12/29/2022 7:01 PM * DNR/DNI Date Activated Date Inactivated Comments 02/04/2018 4:39 PM 02/09/2018 7:33 PM Care Teams Client Care Consultant Relationship Specialty Start Date End Date Elsewhere, Pcp PCP - General Internal Medicine 11/12/21
--- OUTSIDE RECORDS SUMMARY | 2024-01-13 15:40 | XMS_ITS | Encounter Summary ---
Author Organization [facility] Address [address] [place] [address] Care Team Providers Care Religious Healer Name Role Phone Elsewhere, Pcp Primary Care Provider Unavailabl e Reason for Visit * Reason Onset Date Comments Scheduling 12/28/2023 Encounter Details Date Type Department Care Team ([facility] st Contact Info) Description 12/28/2023 Clinical Communication Division of Hematology in [place], [place] [address] [place] [phone] Justin Snider M.D., Ph.D. [address] [place] [phone] Scheduling Social History Tobacco Use Types Packs/Day Years Used Date Smoking Tobacco: Never Passive Smoke Exposure: Never Smokeless Tobacco: Never Alcohol Use Standard Drinks/Week Comments Not Currently 0 (1 standard drink = 0.6 oz pur e alcohol) less than 1 [facility] Utilities Answer Date Recorded In the past 12 months has [employer], gas, oil, or water [employer] threatened to shut off services in your [...] often do you attend chur ch or cheondoism services? Never 05/30/2022 Do you belong to any clubs o r organizations such as yarsani groups, unions, fraternal or athletic groups, or [...] medical care, and heating? Somewhat hard 05/30/2022 [facility] - Occupational Stress [...] your living situation today? [facility] 08/02/2023 Education Answer [...] CDT Appointment Department of Laboratory Medicine in [address] [phone] Justin Snider M.D., Ph.D. [address] [place] [phone] 02/03/2024 1:30 PM CDT Virtual Visit Division of Hematology in [place], [place] [address] [place] [phone] Justin Snider M.D., Ph.D. [address] [place] [phone] documented as of this encounter Visit Diagnoses Not on filedocumented in this encounter Additional Health Concerns Infection Onset Date Last Indicated Resolved Time Protective Environment 12/31/2022 12/31/2022 documented as of this encounter Care Teams Religious Healer Relationship Specialty Start Date End Date Elsewhere, Pcp PCP - General Internal Medicine 11/12/21 documented as of this encounter
--- OUTSIDE RECORDS SUMMARY | 2024-01-13 15:40 | XMS_ITS | Encounter Summary ---
Author Organization [facility] Address [address] [place] [address] Care Team Providers Care Learning And Development Director Name Role Phone Elsewhere, Pcp Primary Care Provider Unavailabl e Encounter Details Date Type Department Care Team (Late st Contact Info) Description 12/31/2023 8:05 AM CDT Hospital Encounter Department of Radiation Oncology in [place], [place] [address] [place] [phone] Chris Field M.D. [address] [place] [phone] Social History Tobacco Use Types Packs/Day Years Used Date Smoking Tobacco: Never Passive Smoke Exposure: Never Smokeless Tobacco: Never Alcohol Use Standard Drinks/Week Comments Not Currently 0 (1 standard drink = 0.6 oz pur e alcohol) less than 1 [facility] Utilities Answer Date Recorded In the past 12 months has [employer], gas, oil, or water [employer] threatened to shut off services in your [...] any clubs o r organizations such as sikhism groups, unions, fraternal or athletic groups, or [...] medical care, and heating? Somewhat hard 05/30/2022 [facility] Occup[facility] ional Health - Occupational [...] living situation today? I have a [facility] place to live 08/02/2023 Education Answer Date [...] CDT Appointment Department of Laboratory Medicine in [address] [phone] Justin Snider M.D., Ph.D. [address] [place] [phone] 02/03/2024 1:30 PM CDT Virtual Visit Division of Hematology in [place], [place] [address] [place] [phone] Justin Snider M.D., Ph.D. [address] [place] [phone] documented as of this encounter Visit Diagnoses Not on filedocumented in this encounter Additional Health Concerns Infection Onset Date Last Indicated Resolved Time Protective Environment 12/31/2022 12/31/2022 documented as of this encounter Care Teams Learning And Development Director Relationship Specialty Start Date End Date Elsewhere, Pcp PCP - General Internal Medicine 11/12/21 documented as of this encounter
--- OUTSIDE RECORDS SUMMARY | 2024-01-13 15:40 | XMS_ITS | Encounter Summary ---
Author Organization [facility] Address [address] [place] [address] Care Team Providers Care Printed Circuit Boards Laminator Name Role Phone Elsewhere, Pcp Primary Care Provider Unavailabl e Encounter Details Date Type Department Care Team (Late st Contact Info) Description 01/10/2024 8:15 AM CDT Hospital Encounter Department of Radiation Oncology in [place], [place] [address] [place] [phone] Chris Field M.D. [address] [place] [phone] Social History Tobacco Use Types Packs/Day Years Used Date Smoking Tobacco: Never Passive Smoke Exposure: Never Smokeless Tobacco: Never Alcohol Use Standard Drinks/Week Comments Not Currently 0 (1 standard drink = 0.6 oz pur e alcohol) less than 1 [facility] Utilities Answer Date Recorded In the past 12 months has [employer], gas, oil, or water [employer] threatened to shut off services in your [...] often do you attend chur ch or sikhism services? Never 05/30/2022 Do you belong to any clubs o r organizations such as holiness groups, unions, fraternal or athletic groups, or [...] medical care, and heating? Somewhat hard 05/30/2022 [facility] of Occupat ional Health - Occupational [...] your living situation today? I have a [facility] place to live 08/02/2023 Education [...] CDT Appointment Department of Laboratory Medicine in [address] [phone] Justin Snider M.D., Ph.D. [address] [place] [phone] 02/03/2024 1:30 PM CDT Virtual Visit Division of Hematology in [place], [place] [address] [place] [phone] Justin Snider M.D., Ph.D. [address] [place] [phone] documented as of this encounter Visit Diagnoses Not on filedocumented in this encounter Additional Health Concerns Infection Onset Date Last Indicated Resolved Time Protective Environment 12/31/2022 12/31/2022 documented as of this encounter Care Teams Printed Circuit Boards Laminator Relationship Specialty Start Date End Date Elsewhere, Pcp PCP - General Internal Medicine 11/12/21 documented as of this encounter
--- OUTSIDE RECORDS SUMMARY | 2024-01-13 15:40 | XMS_ITS | Encounter Summary ---
Author Organization [facility] Address [address] [place] [address] Care Team Providers Care Material Handler 2Nd Shift Name Role Phone Elsewhere, Pcp Primary Care Provider Unavailabl e Encounter Details Date Type Department Care Team (Late st Contact Info) Description 12/30/2023 8:06 AM CDT Hospital Encounter Department of Radiation Oncology in [place], [place] [address] [place] [phone] Chris Field M.D. [address] [place] [phone] Social History Tobacco Use Types Packs/Day Years Used Date Smoking Tobacco: Never Passive Smoke Exposure: Never Smokeless Tobacco: Never Alcohol Use Standard Drinks/Week Comments Not Currently 0 (1 standard drink = 0.6 oz pur e alcohol) less than [address] [facility] Utilities Answer Date Recorded In the past 12 months has [employer], gas, oil, or water [employer] threatened to shut off services in your [...] often do you attend chur ch or adventism services? Never 05/30/2022 Do you belong to any clubs o r organizations such as religious groups, unions, fraternal or athletic groups, or [...] medical care, and heating? Somewhat hard 05/30/2022 [facility] of Occupat ional Health - Occupational Stress [...] your living situation today? I have a [employer] place to live 08/02/2023 Education Answer Date [...] CDT Appointment Department of Laboratory Medicine in [address] [phone] Justin Snider M.D., Ph.D. [address] [place] [phone] 02/03/2024 1:30 PM CDT Virtual Visit Division of Hematology in [place], [place] [address] [place] [phone] Justin Snider M.D., Ph.D. [address] [place] [phone] documented as of this encounter Visit Diagnoses Not on filedocumented in this encounter Additional Health Concerns Infection Onset Date Last Indicated Resolved Time Protective Environment 12/31/2022 12/31/2022 documented as of this encounter Care Teams Material Handler 2Nd Shift Relationship Specialty Start Date End Date Elsewhere, Pcp PCP - General Internal Medicine 11/12/21 documented as of this encounter
--- OUTSIDE RECORDS SUMMARY | 2024-01-13 15:40 | XMS_ITS | Clinical Summary ---
Author Organization [facility] Address [address] [place] [address] Care Team Providers Care Switchman Supervisor Name Role Phone Elsewhere, Pcp Primary Care Provider Unavailabl e Source Comments Patient records contain information from all sites at [facility]. For routine questions regarding patient records, call [phone] during business hours, M-F 8:00 AM - 5:00 PM Central Time. Record requests for emergency care only can be directed to [phone] at any time.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 01/07/2024 8:18 AM CDT Hospital Encounter Department of Radiation Oncology in [place], [place] [address] [place] [address] Chris Field M.D. 01/06/2024 8:13 AM CDT Hospital Encounter Department of Radiation Oncology in [place], [place] [address] [place] [phone] Chris Field M.D. 01/05/2024 8:16 AM CDT Hospital Encounter Department of Radiation Oncology in [place], [place] [address] [place] [phone] Chris Field M.D. 01/04/2024 8:42 AM CDT - 01/04/2024 11:41 AM CDT Hospital Encounter Department of Radiation Oncology in [place], [place] [address] [place] [phone] Chris Field M.D. Secondary Malignant Neoplasm Bone (HCC) 01/04/2024 8:19 AM CDT Hospital Encounter Department of Radiation Oncology in [place], [place] [address] [place] [phone] Chris Field M.D. 12/31/2023 8:05 AM CDT Hospital Encounter Department of Radiation Oncology in [place], [place] [address] [place] [phone] Chris Field M.D. 12/30/2023 8:06 AM CDT Hospital Encounter Department of Radiation Oncology in [place], [place] [address] [place] [phone] Chris Field M.D. 12/29/2023 8:04 AM CDT Hospital Encounter Department of Radiation Oncology in [address] [phone] Chris Field M.D. 12/28/2023 9:02 AM CDT Hospital Encounter Department of Radiation Oncology in [place], [place] [address] [place] [phone] Chris Field M.D. Melanoma Malignant Skin Nose (HCC) (Primary Dx); Secondary Malignant Neoplasm Bone (HCC) 12/28/2023 8:26 AM CDT Hospital Encounter Department of Radiation Oncology in [place], [place] [address] [place] [phone] Chris Field M.D. 12/28/2023 Clinical Communication Division of Hematology in [address] [phone] Justin Snider M.D., Ph.D. Scheduling 12/27/2023 8:25 AM CDT Hospital Encounter Department of Radiation Oncology in [place], [place] [address] [place] [phone] Chris Field M.D. 12/26/2023 CPAP Download Remote Patient Monitoring [facility] [address] [place] [address] [facility] 12/13/2023 5:57 PM CDT - 12/13/2023 11:59 PM CDT Hospital Encounter Department of Radiology, [facility], in [place], [place] [address] [place] [phone] Chris Field M.D. Melanoma Malignant Skin Nose (HCC) Discharge Disposition: Home or Self Care 12/09/2023 12:48 PM CDT - 12/09/2023 11:59 PM CDT Hospital Encounter Department of Radiation Oncology in [place], [place] [address] [place] [phone] Chris Field M.D. Melanoma Malignant Skin Nose (HCC) Discharge Disposition: Home or Self Care 12/07/2023 9:00 AM CDT - 12/07/2023 1:40 PM CDT Hospital Encounter Department of Radiation Oncology in [address] [phone] Irena Pradhan M.D. Melanoma Malignant Skin Nose (HCC) 12/07/2023 Clinical Communication Department of Radiation Oncology in [address] [phone] Chris Field M.D. 11/30/2023 8:00 AM CDT Procedure visit Department of Dermatology in [address] [phone] Oliverio Toussaint M.D., M.S. Melanoma Malignant Skin Nose (HCC) Discharge Disposition: Home or Self Care 11/30/2023 Ancillary Procedure Department of Dermatology 11/25/2023 CPAP Download Remote Patient Monitoring [facility] [address] [place] [address] [facility] Ph[facility] 11/23/2023 Refill Department of Cardiovascular Medicine in [place], [place] [address] [place] [phone] Ysabel Vela M.D., M.P.H. Med Refill 11/22/2023 Orders Only Division of Hematology in [place], [place] [address] [place] [phone] Justin Snider M.D., Ph.D. 11/22/[address] [facility] [address] [place] [phone] Lauren Meier C.Ph.T. Med Refill 11/19/2023 Refill Division of Hematology in [place], [place] [address] [place] [phone] Nathanael Goldstein M.D. Med Refill 11/11/2023 1:30 PM CDT Office Visit Division of Hematology in [place], [place] [address] [place] [phone] Justin Snider M.D., Ph.D. Lymphoplasmacytic Lymphoma (HCC) (Primary Dx); Waldenstrom's Macroglobulinemia (HCC) 11/11/2023 9:30 AM CDT - 11/11/2023 11:59 PM CDT Hospital Encounter Department of Laboratory Medicine and Pathology, [facility], in [place], [place] [address] [place] [phone] Justin Snider M.D., Ph.D. Waldenstrom's Macroglobulinemia (HCC) Discharge Disposition: Home or Self Care 11/11/2023 Clinical Communication Fransico Ruff [facility] Trans[facility] Clinical Regeneration in [place], [place] [address] [place] [phone] Justin Snider M.D., Ph.D. Lab Monitoring 11/09/2023 9:00 AM CDT Clinical Communication Virtual Review in [place], [place] [address] [place] [address] Pre-visit Intake 10/26/2023 Clinical Communication Department of Dermatology in [place], [place] [address] [place] [address] Prescheduling , Provider Appt Request 10/26/2023 Orders Only Department of Dermatology in [place], [place] [address] [place] [address] Mica Inman M.D. Melanoma Malignant Skin Nose (HCC) (Primary Dx) 10/25/2023 CPAP Download Remote Patient Monitoring [facility] [address] [place] [address] [facility], Rosa Ann, Ph.D. 10/15/2023 11:00 AM CDT Office Visit Department of Dermatology in [place], [place] [address] [place] [phone] Mica Inman M.D. Personal History Of Other Malignant Neoplasm Of Skin (Primary Dx); Dermatoheliosis; Other Melanin Hyperpigmentation; Nevi Multiple; Screening Examination Skin Cancer; Melanoma Personal History; Immunodeficiency Due To Drugs (HCC); Tumor Skin Uncertain Behavior; Keratosis Seborrheic Discharge Disposition: Home or Self Care 10/15/2023 12:05 AM CDT Ancillary Procedure Department of Dermatology 10/15/2023 Ancillary Procedure Department of Dermatology from Last 3 Months Immunizations Name Administration Dates Next Due Influenza [...] quad (FLUZONE/FLUARIX) (6 months and older)(PF) 02/25/2015 Family History Medical History Relation Name Comments Waldenstrom's macroglobulinemia Father over 70 Breast cancer Maternal Grandmother Breast cancer Mother Keena Cano over 70 Hypertension Mother Keena Cano Relation Name Status Comments Brother Alive Father Maternal Grandmother Mother Keena Cano Social History Tobacco Use Types Packs/Day Years Used Date Smoking Tobacco: Never Passive Smoke Exposure: Never Smokeless Tobacco: Never Tobacco Cessation:Counseling Given: No Alcohol Use Standard Drinks/Week Comments Not Currently 0 (1 standard drink = 0.6 oz pur e alcohol) less than 1 [facility] Utilities Answer Date Recorded In the past 12 months has e [email or web address], gas, oil, or water [employer] threatened to shut off services in your [...] often do you attend chur ch or religion services? Never 05/30/2022 Do you belong to any clubs o r organizations such as hindu groups, unions, fraternal or athletic groups, or [...] medical care, and heating? Somewhat hard 05/30/2022 [facility] Occupat ional Health - [...] your living situation today? I have a [facility] place to live 08/02/2023 Education Answer [...] CDT Appointment Department of Laboratory Medicine in [address] [phone] Justin Snider M.D., Ph.D. 200 [place] [phone] 02/03/2024 1:30 PM CDT Virtual Visit Division of Hematology in [place], [place] [address] [place] [phone] Justin Snider M.D., Ph.D. 200 [place] [phone] Health Maintenance Due Date Last Done Comments CT Colonography 1948 Cologuard 1948 FIT 1948 Zoster Vaccines (1 of 2) 1967 DTaP,Tdap,and Td Vaccines (1 - Tdap) 08/24/2013 08/23/2013 Colonoscopy 05/06/2021 05/06/2011 (Perf ormed elsewhere) Colorectal Cancer Screening 05/06/2021 Depression Screening (Annual PHQ-2) 05/03/2023 COVID-19 Vaccine ( season) 2024 02/16/2023, 02/03/2022, 09/03/2021, Additional history exists Influenza Vaccine (#1) 2024 , 02/03/2022, 02/14/2021, Additional history exists Office Visit for Blood Pressure Check / Re-check 02/11/2024 11/11/2023 Sodium Level 08/11/2024 08/12/2023, 1110/2022, 03/01/2023, Additional history exists Creatinine Level (Kidney Function Test) 11/10/2024 11/11/2023, 08/12/2023, 03/08/2023, Additional history exists Potassium Level 11/10/2024 11/11/2023, 08/01, 03/08/2023, Additional history exists Fasting Glucose for Diabetes Screening 08/11/2026 08/12/2023, 03/08/2023, 12/29/2022, Additional history exists Hepatitis C Screening Completed 02/14/2018 Pneumococcal vaccine (65+ years) Completed 08/03/2022, 02/25/2015, 08/21/2013 RSV vaccine - (32-36 weeks) or 60+ years Completed 04/08/2023 Fall Risk Screen (Annual) Completed 08/24/2023 HPV Vaccines Aged Out No longer eligi ble based on patient's age to complete this topic Medical Devices Implanted Type Area Cheesemaking Laborer Device Identifier Shelf Expiration Date Model / Serial / Lot Clp Apr [facility] - [id number] Implanted:Qty: 1 on 08/24/2023 by Guru Williamson M.D. at [facility] Hardware e.g. pins/screws/r ods [employer] [id number] / [...] 11/11/2023 9:57 AM CDT Waldenstrom's Macroglobulinemia (HCC) [id number] (BETA-2-M), S Routine 11/11/2023 9:57 AM CDT [...] Elapsed Days 14 YEUNG ARIA Reference Point [id number] tNasal YEUNG ARIA Dosage Given to Date cGy 4500 YEUNG ARIA Session Dosage Given 450 YEUNG ARIA Plan ID [id number] [place] YEUNG ARIA Fractions Treated to Date 10 YEUNG ARIA Planned Total Fractions 10 YEUNG ARIA Prescribed Dose Per Fraction 450 YEUNG ARIA Prescription Dose in cGy 4500 YEUNG ARIA Plan Primary Reference Point [id number] tNasal YEUNG ARIA 01/10/2024 8:26 AM CDT Provider Not In System RADIATION ONCOLOG Y ORDERABLES Performing Organization Address City/State/[facility] Co de Phone Number DEMOREST MG na * Clinical Setup (12/27/2023 8:30 [...] non-melanoma skin cancers. 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 [...] resultswithin the time period is included. Narrative IIMO - 11/30/2023 10:36 AM CDT This order has been created and auto-finalized to support the import of images acquired without order. The clinical documentation to support these images can be found on the encounter that produced images. Provider Not In System IMG NON RAD IMAGI NG PROCEDURES IIMO NA * (ABNORMAL) CBC with Differential, Blood [...] Snider M.D., Ph.D. LAB BLOOD A DD-ON [facility] [address] [place] [address], [facility] [address] [place] [address] [facility] [address] [place] [address] * AST (Aspartate Aminotransferase) (11/11/2023 9:57 AM CDT) Aspartate Aminotransferase (AST), S 24 8 - 48 U/L 11/11/2023 11:04 AM CDT DTL Blood (Blood, Venous) 11/11/2023 9:57 AM CDT 11/11/2023 10:36 AM CDT Justin Snider M.D., Ph.D. LAB BLOOD A DD-ON [facility] [address] [place], [place] [phone] [place] [address] [address] [place] [address] * Potassium (11/11/2023 9:57 AM CDT) Potassium, S 4.0 3.6 - 5.2 mmol/L 11/11/2023 11:04 AM CDT DTL Blood (Blood, Venous) 11/11/2023 9:57 AM CDT 11/11/2023 10:36 AM CDT Justin Snider M.D., Ph.D. LAB BLOOD A DD-ON [facility] [address] [place] [address] * Alkaline Phosphatase (11/11/2023 9:57 AM CDT) Alkaline Phosphatase, S 77 40 - 129 U/L 11/11/2023 11:04 AM CDT DTL Blood (Blood, Venous) 11/11/2023 9:57 AM CDT 11/11/2023 10:36 AM CDT Justin Snider M.D., Ph.D. LAB BLOOD A DD-ON [facility] [address] [place] [address], [facility] [address] [place] [address] * Immunoglobulin M (IgM) (11/11/2023 9:57 AM CDT) Immunoglobulin M (IgM), S 48 37 - 286 mg/dL 11/11/2023 2:40 PM CDT [facility] Blood (Blood, Venous) 11/11/2023 9:57 AM CDT 11/11/2023 2:04 PM CDT Justin Snider M.D., Ph.D. LAB BLOOD A DD-ON Performing Organization Address [facility] Co de Phone Number [facility] [address] [place] [address] [facility] [address] [place] [address] * (ABNORMAL) Creatinine with Estimated GFR (11/11/2023 [...] LAB BLOOD A DD-ON Performing Organization Address City/[facility]/ZIP Co de Phone Number [facility] [address] [place] [address], [facility] [address] [place] [address] * Calcium, Total (11/11/2023 9:57 AM CDT) Calcium, Total, S 9.9 8.8 - 10.2 mg/dL 11/11/2023 11:04 AM CDT DTL Blood (Blood, Venous) 11/11/2023 9:57 AM CDT 11/11/2023 10:36 AM CDT Justin Snider M.D., Ph.D. LAB BLOOD A DD-ON Performing Organization Address [facility] Co de Phone Number [facility] [address] [place] [address], [facility] [address] [place] [address] * Bilirubin, Total (11/11/2023 9:57 AM CDT) Bilirubin, Total, S 1.0 0.0 - 1.2 mg/dL 11/11/2023 11:04 AM CDT [facility] Blood (Blood, Venous) 11/11/2023 9:57 AM CDT 11/11/2023 10:36 AM CDT Justin Snider M.D., Ph.D. LAB BLOOD A DD-ON Performing Organization Address [facility] Co de Phone Number [facility] [address] [place] [address], [facility] [address] [place] [address] * (ABNORMAL) Bkjl-7-Wrokrbqvajzyk (Beta-2-M) (11/11/2023 9:57 AM CDT) Qtzq-9-Rfktrtq obulin, S 3.03(H) 1.21 - 2.70 mcg/mL 11/11/2023 3:52 PM CDT [facility] Blood (Blood, Venous) 11/11/2023 9:57 AM CDT 11/11/2023 2:04 PM CDT Justin Snider M.D., Ph.D. LAB BLOOD A DD-ON Performing Organization Address City/[facility]/ZIP Co de Phone Number [facility] [address] [place] [address] [facility] [address] [place] [address] * Albumin (11/11/2023 9:57 AM CDT) Albumin, S 4.4 3.5 - 5.0 g/dL 11/11/2023 11:04 AM CDT DT Blood (Blood, Venous) 11/11/2023 9:57 AM CDT 11/11/2023 10:36 AM CDT Justin Snider M.D., Ph.D. LAB BLOOD A DD-ON Performing Organization Address [facility] Co de Phone Number [facility] [address] [place] [address], [facility] [address] [place] [address] * Dermatopathology (10/15/2023 11:43 AM CDT) 10/25/2023 [...] of the testing process was performed at [facility] [employer] site [id number]. 10/25/2023 10:50 AM CDT PDRM Skin (Left Nasal Sidewall) 10/15/2023 11:42 AM CDT Mica Inman M.D. LAB PATH DERM ORD ERABLES [facility] [address] [place] [address], [place] [facility] [address] [place] [address] * (ABNORMAL) Basic Metabolic Panel (08/12/2023 1:05 [...] CDT Guru Williamson M.D. LAB BLOOD ADD-ON [facility] [address] [place] [address], [facility] [address] [place] [address] * HCV Ab Scrn w/Reflex to HCV PCR (02/14/2018 8:16 AM CDT) HCV Ab Screen, S Negative Negative 02/14/2018 12:56 PM CDT [facility] Comment:Zanmij-ef-sgkpyi rat io is <1.00. Blood (Blood, Venous) 02/14/2018 8:16 AM CDT 02/14/2018 10:25 AM CDT uJstin Snider M.D., Ph.D. LAB MICROBI OLOGY - BLOOD ORDERABLES [facility] [address] [place] [address] from Last 3 Months or Most Recently Relevant to Health Maintenance Additional Health Concerns Infection Onset Date Last Indicated Protective Environment 12/31/2022 3 Advance Directives For more information, please contact: [phone] Documents on File Type Date Recorded Patient Repairer Shoe Sticks Expl anation Advance Directives 05/17/2015 12:00 AM Kasey bonilla document. See document viewer. Advance Directives 04/01/2015 12:00 AM Laine maritn document. See document viewer. * DNR/DNI (Latest Code Status on File) Date Activated Date Inactivated Comments 12/23/2022 3:58 PM 12/29/2022 7:01 PM * DNR/DNI Date Activated Date Inactivated Comments 02/04/2018 4:39 PM 02/09/2018 7:33 PM Care Teams Switchman Supervisor Relationship Specialty Start Date End Date Elsewhere, Pcp PCP - General Internal Medicine 11/12/21
--- OUTSIDE RECORDS SUMMARY | 2024-01-13 15:40 | XMS_ITS | Encounter Summary ---
Author Organization [facility] Address [address] [place] [address] Care Team Providers Care Lobby Concierge Name Role Phone Elsewhere, Pcp Primary Care Provider Unavailabl e Encounter Details Date Type Department Care Team (Late st Contact Info) Description 01/07/2024 8:18 AM CDT Hospital Encounter Department of Radiation Oncology in [place], [place] [address] [place] [phone] Chris Field M.D. [address] [place] [phone] Social History Tobacco Use Types Packs/Day Years Used Date Smoking Tobacco: Never Passive Smoke Exposure: Never Smokeless Tobacco: Never Alcohol Use Standard Drinks/Week Comments Not Currently 0 (1 standard drink = 0.6 oz pur e alcohol) less than 1 [facility] Utilities Answer Date Recorded In the past 12 months has [employer], gas, oil, or water [email or web address] threatened to shut off services in your [...] often do you attend chur ch or church services? Never 05/30/2022 Do you belong to any clubs o r organizations such as orthodox groups, unions, fraternal or athletic groups, or [...] medical care, and heating? Somewhat hard 05/30/2022 [facility] Occupat ional Health - [...] your living situation today? I have a [facility] place to live 08/02/2023 Education Answer [...] CDT Appointment Department of Laboratory Medicine in [address] [phone] Justin Snider M.D., Ph.D. [address] [place] [phone] 02/03/2024 1:30 PM CDT Virtual Visit Division of Hematology in [place], [place] [address] [place] [phone] Justin Snider M.D., Ph.D. [address] [place] [address] documented as of this encounter Visit Diagnoses Not on filedocumented in this encounter Additional Health Concerns Infection Onset Date Last Indicated Resolved Time Protective Environment 12/31/2022 12/31/2022 documented as of this encounter Care Teams Lobby Concierge Relationship Specialty Start Date End Date Elsewhere, Pcp PCP - General Internal Medicine 11/12/21 documented as of this encounter
--- OUTSIDE RECORDS SUMMARY | 2024-01-13 15:40 | XMS_ITS | Encounter Summary ---
Author Organization [facility] Address [address] [place] [address] Care Team Providers Care Human Resources Partner Name Role Phone Elsewhere, Pcp Primary Care Provider Unavailabl e Encounter Details Date Type Department Care Team (Late st Contact Info) Description 12/29/2023 8:04 AM CDT Hospital Encounter Department of Radiation Oncology in [place], [place] [address] [place] [phone] Chris Field M.D. [address] [place] [phone] Social History Tobacco Use Types Packs/Day Years Used Date Smoking Tobacco: Never Passive Smoke Exposure: Never Smokeless Tobacco: Never Alcohol Use Standard Drinks/Week Comments Not Currently 0 (1 standard drink = 0.6 oz pur e alcohol) less than 1 [facility] Utilities Answer Date Recorded In the past 12 months has [facility], gas, oil, or water [employer] threatened to shut off services in your [...] any clubs o r organizations such as scientology groups, unions, fraternal or athletic groups, or [...] medical care, and heating? Somewhat hard 05/30/2022 [facility] of Occupat ional Health - Occupational Stress [...] your living situation today? I have a [facility] place to live 08/02/2023 Education [...] CDT Appointment Department of Laboratory Medicine in [address] [phone] Justin Snider M.D., Ph.D. [address] [place] [phone] 02/03/2024 1:30 PM CDT Virtual Visit Division of Hematology in [place], [place] [address] [place] [phone] Justin Snider M.D., Ph.D. [address] [place] [address] documented as of this encounter Visit Diagnoses Not on filedocumented in this encounter Additional Health Concerns Infection Onset Date Last Indicated Resolved Time Protective Environment 12/31/2022 12/31/2022 documented as of this encounter Care Teams Human Resources Partner Relationship Specialty Start Date End Date Elsewhere, Pcp PCP - General Internal Medicine 11/12/21 documented as of this encounter
--- OUTSIDE RECORDS SUMMARY | 2024-01-13 15:40 | XMS_ITS ---
Author Organization [facility] Address [address] [place] [address] Care Team Providers Care Car Hostler Name Role Phone Unavailable Unavailable Unavailable Surgery Details Not on file Complications Check Surgery Details section. Procedure Estimated Blood Loss Check Surgery Details section. Procedure Findings Check Surgery Details section. Procedure Specimens Taken Check Surgery Details section.
--- OUTSIDE RECORDS SUMMARY | 2024-01-13 15:40 | XMS_ITS | Encounter Summary ---
Author Organization [facility] Address [address] [place] [address] Care Team Providers Care Sample Weaver Name Role Phone Elsewhere, Pcp Primary Care Provider Unavailabl e Encounter Details Date Type Department Care Team (Late st Contact Info) Description 01/04/2024 8:19 AM CDT Hospital Encounter Department of Radiation Oncology in [place], [place] [address] [place] [phone] Chris Field M.D. [address] [place] [phone] Social History Tobacco Use Types Packs/Day Years Used Date Smoking Tobacco: Never Passive Smoke Exposure: Never Smokeless Tobacco: Never Alcohol Use Standard Drinks/Week Comments Not Currently 0 (1 standard drink = 0.6 oz pur e alcohol) less than 1 [facility] Utilities Answer Date Recorded In the past 12 months has [email or web address], gas, oil, or water [employer] threatened to shut off services in your [...] any clubs o r organizations such as taoist groups, unions, fraternal or athletic groups, or [...] medical care, and heating? Somewhat hard 05/30/2022 [facility] Occupat ional [facility] - Occupational [...] your living situation today? I have a [facility] place to live 08/02/2023 Education [...] Appointment Department of Laboratory Medicine in [address] [phone] Justin Snider M.D., Ph.D. [address] [place] [phone] 02/03/2024 1:30 PM CDT Virtual Visit Division of Hematology in [place], [place] [address] [place] [phone] Justin Snider M.D., Ph.D. [address] [place] [phone] documented as of this encounter Visit Diagnoses Not on filedocumented in this encounter Additional Health Concerns Infection Onset Date Last Indicated Resolved Time Protective Environment 12/31/2022 12/31/2022 documented as of this encounter Care Teams Sample Weaver Relationship Specialty Start Date End Date Elsewhere, Pcp PCP - General Internal Medicine 11/12/21 documented as of this encounter
--- OUTSIDE RECORDS SUMMARY | 2024-01-13 15:41 | XMS_ITS | Encounter Summary ---
Author Organization [facility] Address [address] [place] [address] Care Team Providers Care Equine Manager Name Role Phone Elsewhere, Pcp Primary Care Provider Unavailabl e Reason for Visit * Reason Comments Med Refill Encounter Details Date Type Department Care Team (Late st Contact Info) Description 11/23/2023 Refill Department of Cardiovascular Medicine in [place], [place] [address] [place] [phone] Ysabel Vela M.D., M.P.H. [address] [place] [phone] Med Refill Social History Tobacco Use Types Packs/Day Years Used Date Smoking Tobacco: Never Passive Smoke Exposure: Never Smokeless Tobacco: Never Alcohol Use Standard Drinks/Week Comments Not Currently 0 (1 standard drink = 0.6 oz pur e alcohol) less than 1 [facility] Utilities Answer Date Recorded In the past 12 months has [employer], gas, oil, or water [employer] threatened to shut off services in your [...] often do you attend chur ch or mormon services? Never 05/30/2022 Do you belong to any clubs o r organizations such as adventist groups, unions, fraternal or athletic groups, or [...] medical care, and heating? Somewhat hard 05/30/2022 [facility] of Occupat ional Health - [...] living situation today? I have a [facility] place to live 08/02/2023 Education Answer [...] CDT Appointment Department of Laboratory Medicine in [address] [phone] Justin Snider M.D., Ph.D. [address] [place] [phone] 02/03/2024 1:30 PM CDT Virtual Visit Division of Hematology in [place], [place] [address] [place] [phone] Justin Snider M.D., Ph.D. [address] [place] [phone] documented as of this encounter Visit Diagnoses Not on filedocumented in this encounter Additional Health Concerns Infection Onset Date Last Indicated Resolved Time Protective Environment 12/31/2022 12/31/2022 documented as of this encounter Care Teams Equine Manager Relationship Specialty Start Date End Date Elsewhere, Pcp PCP - General Internal Medicine 11/12/21 documented as of this encounter
--- OUTSIDE RECORDS SUMMARY | 2024-01-13 15:41 | XMS_ITS | Encounter Summary ---
Author Organization [facility] Address [address] [place] [address] Care Team Providers Care Wholesale Manager Name Role Phone Elsewhere, Pcp Primary Care Provider Unavailabl e Reason for Referral * Outpatient (Routine) - Authorized Specialty Diagnoses / Procedures Referred By Contac t Referred To Contact Dermatology Diagnoses Melanoma Malignant Skin Nose (HCC) Doretha Vivas M.D. [address] [place] [phone] [facility] Referral ID Status Reason Start Date Expiration Date V isits Requested Visits Authorized [id number] Authorized 11/30/2023 05/31/2025 1 1 Scheduling Instructions Please schedule with Raphael or Camp per patient preference * Outpatient (Routine) - Authorized Specialty Diagnoses / Procedures Referred By Contac t Referred To Contact Dermatology Diagnoses Melanoma Malignant Skin Nose (HCC) Procedures [facility] 1-4 sites Doretha Vivas M.D. [address] [place] [phone] [facility] Referral ID Status Reason Start Date Expiration Date V isits Requested Visits Authorized [id number] Authorized 11/30/2023 11/29/2024 1 1 * Outpatient (Routine) - Closed Specialty Diagnoses / Procedures Referred By Contac t Referred To Contact Radiation Oncology Diagnoses Melanoma Malignant Skin Nose (HCC) Doretha Vivas M.D. [address] [place] [address] [facility] Referral ID Status Reason Start Date Expiration Date Visits Re quested Visits Authorized [id number] Closed 11/30/2023 05/31/2025 1 1 Reason for Visit * Outpatient (Routine) - Closed Specialty Diagnoses / Procedures Referred By Contac t Referred To Contact Dermatology Diagnoses Melanoma Malignant Skin Nose (HCC) Procedures [facility] 1-4 sites Mica Inman M.D. [address] [place] [phone] [facility] Referral ID Status Reason Start Date Expiration Date Visits Re quested Visits Authorized [id number] Closed 10/26/2023 10/25/2024 1 1 Encounter Details Date Type Department Care Team (Latest Contact Info) Description 11/30/2023 8:00 AM CDT Procedure visit Department of Dermatology in [place], [place] [address] [place] [phone] Oliverio Toussaint M.D., M.S. [address] [place] [phone] Melanoma Malignant Skin Nose (HCC) Discharge Disposition: Home or Self Care Social History Tobacco Use Types Packs/Day Years Used Date Smoking Tobacco: Never Passive Smoke Exposure: Never Smokeless Tobacco: Never Alcohol Use Standard Drinks/Week Comments Not Currently 0 (1 standard drink = 0.6 oz pur e alcohol) less than 1 [facility] Utilities Answer Date Recorded In the past 12 months has e [employer], gas, oil, or water [employer] threatened to shut off services in your [...] How often do you attend chur or yazidism services? Never 05/30/2022 Do you belong to [...] medical care, and heating? Somewhat hard 05/30/2022 [facility] [place] of Occupat ional Health - Occupational Stress [...] your living situation today? I have a [facility] place to live 08/02/2023 Education Answer [...] Sign Reading Time Taken Comments Blood Pressure 150/85 11/30/2023 8:05 AM CDT Pulse 73 11/30/2023 8:05 AM CDT Temperature - - Respiratory Rate - - Oxygen Saturation - - Inhaled Oxygen Concentration - - Weight - - Height - - Body Mass Index - - documented in this encounter Consult Notes * Oliverio Toussaint M.D., M.S. - 11/30/2023 8:00 AM CDT REFERRING PROVIDER 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 Justin Cano is a pleasant 73 y.o. male who is coming in today with a prior history of a lentigo malignant melanoma that was identified and biopsied from the left nasal sidewall October 15, 2023, found to be Breslow thickness 0.3 mm, Shorty level III, coming in today for potential definitive surgical management. The dermatologic surgery preoperative information sheet was reviewed. Mr. Justin Cano has a history of a dilated aorta, a stroke, and lymphoma as well as multiple skin cancers including a prior history of melanoma. PAST MEDICAL HISTORY History of malignant melanoma Malignant melanoma, Breslow thickness 0.5 mm, right medial plantar foot s/p wide local excision on 08/26/2018 Malignant melanoma, Breslow depth 0.4 mm, right posterior upper arm s/p wide local excision on 05/08/2019. 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 (excised July 07, 2022) Squamous cell carcinoma hz-cvbf-tajjd lower chest (treated with electrodesiccation and curettage August 21, 2021) Squamous cell carcinoma ac-reza-gbne upper chest (treated with electrodesiccation and curettage August 21, 2021) Squamous cell carcinoma Situ-right lumbar back (treated with electrodesiccation and curettage June 02, 2022) Squamous cell carcinoma Situ-left nasal dorsum (treated with Mohs surgery today, August 11, 2022) Nodular basal cell carcinoma-right upper back (treated with electrodesiccation and curettage 2022) Poorly differentiated perineurally invasive squamous cell carcinoma invading through muscle-mid lower vermilion lip (treated with Mohs surgery July 13, 2023), negative SLNB and adjuvant RT (08/2023) Allergies Allergen Reactions Dexamethasone (Pf) Other (see comments) Muscle fatigue and weakness Amoxicillin Other (see comments) Amoxicillin-induced aseptic meningitis Azithromycin Diarrhea intol diarrhea low bp Rituximab Rash FAMILY HISTORY No immediate members of the family with skin cancer. SOCIAL HISTORY Mr. Justin Cano is retired, does not smoke and does not drink alcohol. Vitals: 11/30/23 0805 BP: 150/85 Pulse: 73 Pain Score: 0 - No pain PHYSICAL EXAM General: Awake, alert, in no acute distress, and with appropriate affect. Skin: Examination performed of the left nasal sidewall reveals a healing biopsy site measuring approximately 2.0 x 3.0 cm in diameter. 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 We also discussed what would be entailed regarding the wound care of the surgical procedure that was anticipated today. After discussing the details of what was expected today as well as expected wound care Mr. Cano and his voiced strong concern of the ability to perform wound care themselves at home for the required amount of time and the amount of wound care necessary. We did have a discussion of the goal ofcare would be to decrease the chances of a skin cancer having the opportunity of cutting Mr. Cano's life short, with the anticipation of trying to way that possibility with the challenges that wouldbe required from a postoperative standpoint. At this point in time Mr. Cano and his were not interested in moving forward with Mohs micrographic surgery today. We did discuss the alternative of treating this with primary radiation as another curative intent type option. They are interested in discussing this option with 1 of our colleagues in Radiation Oncology. We did however after discussing with them put in a request for another surgical appointment for Mohs micrographic surgery down the road if things do not seem to be working out from radiation oncology standpoint or if Mr. Cano decides that he would rather have Mohs surgeryat some point down the road. We also discussed that if this does become a possibility that we couldwork with the social work to try to coordinate home care from a wound care standpoint given his inability in his 's inability to perform the wound care that would be necessary from a reconstruction standpoint. All questions were answered and both Mr. Cano and his left feeling good about this plan. Theyare welcome to call if any concerns or questions should arise at any point in time as they decide what would be the best option for them. #2 History of malignant melanoma, Breslow thickness 0.5 mm, right medial plantar foot #3 History of malignant melanoma, Breslow depth 0.4 mm, right posterior upper arm #4 History of malignant melanoma kk-muly-fjrhs abdomen lower #5 History of multiple nonmelanoma skin cancers including an aggressive poorly differentiated squamous cell carcinoma with perineural invasion involving the lower mucosal lip #6 Fair complected individual #7 Increased risk for future skin cancer Mr. Justin Cano should sun protect daily and monitor his skin regularly. Full skin examinations in the Dermatology Department would be recommended on an annual basis. All questions addressed andanswered today, and Mr. Justin Cano is welcome to call should any questions or concerns arise in the future. PATIENT EDUCATION Ready to learn. No apparent learning barriers were identified. Learning preferences include listening. Explained diagnosis and treatment plan; patient/guardian of patient expressed understanding of the content. documented in this encounter Plan of Treatment Upcoming Encounters Date Type Department Care Team (Late st Contact Info) Description 02/02/2024 1:30 PM CDT Appointment Department of Laboratory Medicine in [address] [phone] Justin Snider M.D., Ph.D. [address] [place] [phone] 02/03/2024 1:30 PM CDT Virtual Visit Division of Hematology in [place], [place] 200 [place] [address] Justin Snider M.D., Ph.D. 200 [place] [phone] Scheduled Orders Name Type Priority Associated Diagnoses Orde r Schedule T[facility] 1-4 sites Dermatology Routine Melanoma Malignant Skin Nose (HCC) Expected: 03/01/2024, Expires: 03/01/2025 Scheduled Referrals Name Type Priority Associated Diagnoses Order Schedule Radiation Oncology - Skin consult (clinic) Outpatient Referral Routine Melanoma Malignant Skin Nose (HCC) Expected: 11/30/2023, Expires: 03/01/2025 Dermatology office visit (clinic) Outpatient Referral Routine Melanoma Malignant Skin Nose (HCC) Expected: 03/01/2024, Expires: 03/01/2025 documented as of this encounter Visit Diagnoses Diagnosis Melanoma Malignant Skin Nose (HCC) documented in this encounter Additional Health Concerns Infection Onset Date Last Indicated Resolved Time Protective Environment 12/31/2022 12/31/2022 documented as of this encounter Care Teams Wholesale Manager Relationship Specialty Start Date End Date Elsewhere, Pcp PCP - General Internal Medicine 11/12/21 documented as of this encounter
--- OUTSIDE RECORDS SUMMARY | 2024-01-13 15:41 | XMS_ITS | Encounter Summary ---
Author Organization [facility] Address [address] [place] [address] Care Team Providers Care Sorting Machine Operator Name Role Phone Elsewhere, Pcp Primary Care Provider Unavailabl e Encounter Details Date Type Department Care Team (Late st Contact Info) Description 12/07/2023 Clinical Communication Department of Radiation Oncology in [place], [place] [address] [place] [phone] Chris Field M.D. [address] [place] [phone] Social History Tobacco Use Types Packs/Day Years Used Date Smoking Tobacco: Never Passive Smoke Exposure: Never Smokeless Tobacco: Never Alcohol Use Standard Drinks/Week Comments Not Currently 0 (1 standard drink = 0.6 oz pur e alcohol) less than 1 [facility] Utilities Answer Date Recorded In the past 12 months has [facility] gas, oil, or water [employer] threatened to shut off services in your [...] often do you attend chur ch or yazidi services? Never 05/30/2022 Do you belong to any clubs o r organizations such as confucianism groups, unions, fraternal or athletic groups, or [...] medical care, and heating? Somewhat hard 05/30/2022 [facility] of Occupat ional Health - [...] your living situation today? I have a [facility] place to live 08/02/2023 Education Answer Date [...] CDT Appointment Department of Laboratory Medicine in [address] [phone] Justin Snider M.D., Ph.D. 200 [place] [phone] 02/03/2024 1:30 PM CDT Virtual Visit Division of Hematology in [place], [place] [address] [place] [phone] Justin Snider M.D., Ph.D. 200 [place] [phone] documented as of this encounter Visit Diagnoses Not on filedocumented in this encounter Additional Health Concerns Infection Onset Date Last Indicated Resolved Time Protective Environment 12/31/2022 12/31/2022 documented as of this encounter Care Teams Sorting Machine Operator Relationship Specialty Start Date End Date Elsewhere, Pcp PCP - General Internal Medicine 11/12/21 documented as of this encounter
--- OUTSIDE RECORDS SUMMARY | 2024-01-13 15:41 | XMS_ITS | Encounter Summary ---
Author Organization [facility] Address [address] [place] [address] Care Team Providers Care Supervisor Housecleaner Name Role Phone Elsewhere, Pcp Primary Care Provider Unavailabl e Encounter Details Date Type Department Care Team (Late st Contact Info) Description 11/22/2023 Orders Only Division of Hematology in [place], [place] [address] [place] [phone] Justin Snider M.D., Ph.D. [address] [place] [phone] Social History Tobacco Use Types Packs/Day Years Used Date Smoking Tobacco: Never Passive Smoke Exposure: Never Smokeless Tobacco: Never Alcohol Use Standard Drinks/Week Comments Not Currently 0 (1 standard drink = 0.6 oz pur e alcohol) less than 1 [facility] Utilities Answer Date Recorded In the past 12 months has [employer], gas, oil, or water [employer] threatened to shut off services in your [...] often do you attend chur ch or bahai services? Never 05/30/2022 Do you belong to any clubs o r organizations such as buddhism groups, unions, fraternal or athletic groups, or [...] medical care, and heating? Somewhat hard 05/30/2022 [facility] of Occupat ional Health - Occupational Stress [...] your living situation today? I have a [facility] place to live 08/02/2023 Education Answer Date [...] CDT Appointment Department of Laboratory Medicine in [address] [phone] Justin Snider M.D., Ph.D. [address] [place] [phone] 02/03/2024 1:30 PM CDT Virtual Visit Division of Hematology in [place], [place] [address] [place] [phone] Justin Snider M.D., Ph.D. [address] [place] [phone] documented as of this encounter Visit Diagnoses Not on filedocumented in this encounter Additional Health Concerns Infection Onset Date Last Indicated Resolved Time Protective Environment 12/31/2022 12/31/2022 documented as of this encounter Care Teams Supervisor Housecleaner Relationship Specialty Start Date End Date Elsewhere, Pcp PCP - General Internal Medicine 11/12/21 documented as of this encounter
--- OUTSIDE RECORDS SUMMARY | 2024-01-13 15:41 | XMS_ITS | Encounter Summary ---
Author Organization [facility] Address 200 [place] [address] Care Team Providers Care Franchise Sales Manager Name Role Phone Elsewhere, Pcp Primary Care Provider Unavailabl e Encounter Details Date Type Department Care Team (Late st Contact Info) Description 12/26/2023 CPAP Download Remote Patient Monitoring [facility] [address] 200 [place] [address] [facility], Provider, M.B., Ph.D. Social History Tobacco Use Types Packs/Day Years Used Date Smoking Tobacco: Never Passive Smoke Exposure: Never Smokeless Tobacco: Never Alcohol Use Standard Drinks/Week Comments Not Currently 0 (1 standard drink = 0.6 oz pur e alcohol) less than 1 [facility] Utilities Answer Date Recorded In the past 12 months has e electric, gas, oil, or water [employer] threatened to shut off services in your [...] often do you attend chur ch or jewish services? Never 05/30/2022 Do you belong to [...] medical care, and heating? Somewhat hard 05/30/2022 [facility] of Occupat ional Health - Occupational [...] your living situation today? I have a [facility] place to live 08/02/2023 Education [...] CDT Appointment Department of Laboratory Medicine in [address] [phone] Justin Snider M.D., Ph.D. [address] [place] [phone] 02/03/2024 1:30 PM CDT Virtual Visit Division of Hematology in [place], [place] [address] [place] [phone] Justin Snider M.D., Ph.D. [address] [place] [phone] documented as of this encounter Visit Diagnoses Not on filedocumented in this encounter Additional Health Concerns Infection Onset Date Last Indicated Resolved Time Protective Environment 12/31/2022 12/31/2022 documented as of this encounter Care Teams Franchise Sales Manager Relationship Specialty Start Date End Date Elsewhere, Pcp PCP - General Internal Medicine 11/12/21 documented as of this encounter
--- OUTSIDE RECORDS SUMMARY | 2024-01-13 15:41 | XMS_ITS | Encounter Summary ---
Author Organization [facility] Address [address] [place] [address] Care Team Providers Care Manager Spring Name Role Phone Elsewhere, Pcp Primary Care Provider Unavailabl e Encounter Details Date Type Department Care Team (Late st Contact Info) Description 11/30/2023 Ancillary Procedure Department of Dermatology Social History Tobacco Use Types Packs/Day Years Used Date Smoking Tobacco: Never Passive Smoke Exposure: Never Smokeless Tobacco: Never Alcohol Use Standard Drinks/Week Comments Not Currently 0 (1 standard drink = 0.6 oz pur e alcohol) less than 1 [facility] Utilities Answer Date Recorded In the past 12 months has e electric, gas, oil, or water company threatened to shut off services in your [...] often do you attend chur ch or voodoo services? Never 05/30/2022 Do you belong to any clubs o r organizations such as alevism groups, unions, fraternal or athletic groups, or [...] medical care, and heating? Somewhat hard 05/30/2022 [facility] of Occupat ional Health - Occupational [...] Appointment Department of Laboratory Medicine in [address] [phone] Justin Snider M.D., Ph.D. [address] [place] [phone] 02/03/2024 1:30 PM CDT Virtual Visit Division of Hematology in [place], [place] [address] [place] [phone] Justin Snider M.D., Ph.D. [address] [place] [phone] documented as of this encounter Procedures Procedure Name Priority Date/Time Associated Diagnosis Comments DERMATOLOGY IMAGE EXAM Routine 11/30/2023 12:00 AM CDT documented in this encounter Results * nose, left nasal sidewall 17-Dermatology Image Exam (11/30/2023 12:00 AM CDT) Narrative IIMS - 11/30/2023 10:36 AM CDT This order has been created and auto-finalized to support the import of images acquired without order. The clinical documentation to support these images can be found on the encounter that produced images. Provider Not In System IMG NON RAD IMAGI NG PROCEDURES IIMS NA documented in this encounter Visit Diagnoses Not on filedocumented in this encounter Additional Health Concerns Infection Onset Date Last Indicated Resolved Time Protective Environment 12/31/2022 12/31/2022 documented as of this encounter Care Teams Manager Spring Relationship Specialty Start Date End Date Elsewhere, Pcp PCP - General Internal Medicine 11/12/21 documented as of this encounter
--- OUTSIDE RECORDS SUMMARY | 2024-01-13 15:41 | XMS_ITS | Encounter Summary ---
Author Organization [facility] Address [address] [place] [address] Care Team Providers Care Cytotechnologist/Cytology Supervisor Name Role Phone Elsewhere, Pcp Primary Care Provider Unavailabl e Reason for Visit * Reason Onset Date Comments Lab Monitoring 11/11/2023 Encounter Details Date Type Department Care Team (Latest Contact Info) Description 11/11/2023 Clinical Communication Fransico Delacruz [facility] in [place], [place] [address] [place] [phone] Justin Snider M.D., Ph.D. [address] [place] [phone] Lab Monitoring Social History Tobacco Use Types Packs/Day Years Used Date Smoking Tobacco: Never Passive Smoke Exposure: Never Smokeless Tobacco: Never Alcohol Use Standard Drinks/Week Comments Not Currently 0 (1 standard drink = 0.6 oz pur e alcohol) less than 1 [facility] Utilities Answer Date Recorded In the [...] How often do you attend chur or catholic services? Never 05/30/2022 Do you belong to any clubs o r organizations such as restorationist groups, unions, fraternal or athletic groups, or [...] Somewhat hard 05/30/2022 [facility] of Occupat ional Health - Occupational [...] Date Recorded Dental: Regular Dentist Yes 05/15/19 23 Employment Answer Date Recorded Employment status Retired 08/02/2023 Housing Stability Answer Date Recorded What is your living situation today? I have a [facility] place to live 08/02/2023 Education Answer Date [...] PM CDT documented as of this encounter Miscellaneous Notes * Telephone Encounter - Juliet Robison R.N. - 11/11/2023 3:32 PM CDT ----- Message from Justin Snider M.D., Ph.D. sent at 11/11/2023 2:58 PM CDT ----- Hi I've reviewed the result. The IgM level is within the normal range. Please let the patient know theresult. Julian Mirza documented in this encounter Plan of Treatment Upcoming Encounters Date Type Department Care Team (Late st Contact Info) Description 02/02/2024 1:30 PM CDT Appointment Department of Laboratory Medicine in [address] [phone] Justin Snider M.D., Ph.D. [address] [place] [phone] 02/03/2024 1:30 PM CDT Virtual Visit Division of Hematology in [place], [place] [address] [place] [phone] Justin Snider M.D., Ph.D. [address] [place] [phone] documented as of this encounter Visit Diagnoses Not on filedocumented in this encounter Additional Health Concerns Infection Onset Date Last Indicated Resolved Time Protective Environment 12/31/2022 12/31/2022 documented as of this encounter Care Teams Cytotechnologist/Cytology Supervisor Relationship Specialty Start Date End Date Elsewhere, Pcp PCP - General Internal Medicine 11/12/21 documented as of this encounter
--- OUTSIDE RECORDS SUMMARY | 2024-01-13 15:41 | XMS_ITS | Encounter Summary ---
Author Organization [facility] Address [address] [place] [address] Care Team Providers Care Edge Burnisher Uppers Name Role Phone Elsewhere, Pcp Primary Care Provider Unavailabl e Reason for Visit * Reason Comments Med Refill Encounter Details Date Type Department Care Team ([facility] st Contact Info) Description 11/19/2023 Refill Division of Hematology in [place], [place] [address] [place] [phone] Nathanael Goldstein M.D. [address] [place] [phone] Med Refill Social History Tobacco Use Types Packs/Day Years Used Date Smoking Tobacco: Never Passive Smoke Exposure: Never Smokeless Tobacco: Never Alcohol Use Standard Drinks/Week Comments Not Currently 0 (1 standard drink = 0.6 oz pur e alcohol) less than 1 [facility] Utilities Answer Date Recorded In the past 12 months has [employer], gas, oil, or water [employer] threatened to shut off services in your [...] often do you attend chur ch or baptist services? Never 05/30/2022 Do you belong to any clubs o r organizations such as congregation groups, unions, fraternal or athletic groups, or [...] medical care, and heating? Somewhat hard 05/30/2022 [facility] of Occupat ional Health - Occupational [...] your living situation today? I have a [facility] place to live 08/02/2023 Education [...] CDT Appointment Department of Laboratory Medicine in [address] [phone] Justin Snider M.D., Ph.D. [address] [place] [phone] 02/03/2024 1:30 PM CDT Virtual Visit Division of Hematology in [place], [place] 200 [place] [phone] Justin Snider M.D., Ph.D. 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
--- OUTSIDE RECORDS SUMMARY | 2024-01-13 15:41 | XMS_ITS | Encounter Summary ---
Author Organization [facility] Address 200 [place] [address] Care Team Providers Care Fruit Tester Name Role Phone Elsewhere, Pcp Primary Care Provider Unavailabl e Encounter Details Date Type Department Care Team (Late st Contact Info) Description 11/25/2023 CPAP Download Remote Patient Monitoring [facility] [address] [place] [address] [facility], Provider, M.B., Ph.D. Social History Tobacco Use Types Packs/Day Years Used Date Smoking Tobacco: Never Passive Smoke Exposure: Never Smokeless Tobacco: Never Alcohol Use Standard Drinks/Week Comments Not Currently 0 (1 standard drink = 0.6 oz pur e alcohol) less than 1 [facility] Utilities Answer Date Recorded In the past 12 months has e electric, gas, oil, or water [employer] threatened to shut off services in your [...] often do you attend chur ch or confucianism services? Never 05/30/2022 Do you belong to any clubs o r organizations such as methodist groups, unions, fraternal or athletic groups, or [...] medical care, and heating? Somewhat hard 05/30/2022 [facility] of Occupat ional Health - [...] your living situation today? I have a [facility] place to live 08/02/2023 Education Answer [...] CDT Appointment Department of Laboratory Medicine in [address] [phone] Justin Snider M.D., Ph.D. [address] [place] [phone] 02/03/2024 1:30 PM CDT Virtual Visit Division of Hematology in [place], [place] [address] [place] [phone] Justin Snider M.D., Ph.D. [address] [place] [phone] documented as of this encounter Visit Diagnoses Not on filedocumented in this encounter Additional Health Concerns Infection Onset Date Last Indicated Resolved Time Protective Environment 12/31/2022 12/31/2022 documented as of this encounter Care Teams Fruit Tester Relationship Specialty Start Date End Date Elsewhere, Pcp PCP - General Internal Medicine 11/12/21 documented as of this encounter
--- OUTSIDE RECORDS SUMMARY | 2024-01-13 15:41 | XMS_ITS | Encounter Summary ---
Author Organization [facility] Address [address] [place] [address] Care Team Providers Care Account Manager Relief Name Role Phone Elsewhere, Pcp Primary Care Provider Unavailabl e Reason for Visit * Reason Onset Date Comments Med Refill 11/22/2023 Encounter Details Date Type Department Care Team (Late st Contact Info) Description 11/22/2023 Clinical Communication [facility] [address] [place] [phone] Lauren Meier C.Ph.T. [address] [place] [phone] Med Refill Social History Tobacco Use Types Packs/Day Years Used Date Smoking Tobacco: Never Passive Smoke Exposure: Never Smokeless Tobacco: Never Alcohol Use Standard Drinks/Week Comments Not Currently 0 (1 standard drink = 0.6 oz pur e alcohol) less than 1 [facility] Utilities Answer Date Recorded In the past 12 months has [employer], gas, oil, or water [employer] threatened to shut off services in your [...] often do you attend chur ch or episcopalian services? Never 05/30/2022 Do you belong to any clubs o r organizations such as orthodoxy groups, unions, fraternal or athletic groups, or [...] medical care, and heating? Somewhat hard 05/30/2022 [facility] of Occupat ional Health - [...] your living situation today? I have a [facility] place to live 08/02/2023 Education Answer [...] as of this encounter Miscellaneous Notes * Addendum Note - Andrea Bishop R.N., O.C.N. - 11/22/2023 11:04 AM CDT Addended by: ANDREA BISHOP on: 11/22/2023 11:04 AM Modules accepted: Orders documented in this encounter Plan of Treatment Upcoming Encounters Date Type Department Care Team (Late st Contact Info) Description 02/02/2024 1:30 PM CDT Appointment Department of Laboratory Medicine in [address] [phone] Justin Snider M.D., Ph.D. [address] [place] [phone] 02/03/2024 1:30 PM CDT Virtual Visit Division of Hematology in [place], [place] [address] [place] [address] Justin Snider M.D., Ph.D. [address] [place] [phone] documented as of this encounter Visit Diagnoses Diagnosis Neutropenia Drug Induced (HCC)- Primary Waldenstrom's Macroglobulinemia (HCC) documented in this encounter Additional Health Concerns Infection Onset Date Last Indicated Resolved Time Protective Environment 12/31/2022 12/31/2022 documented as of this encounter Care Teams Account Manager Relief Relationship Specialty Start Date End Date Elsewhere, Pcp PCP - General Internal Medicine 11/12/21 documented as of this encounter
--- OUTSIDE RECORDS SUMMARY | 2024-01-13 15:41 | XMS_ITS | Encounter Summary ---
Author Organization [facility] Address [address] [place] [address] Care Team Providers Care Page Designer Name Role Phone Elsewhere, Pcp Primary Care Provider Unavailabl e Encounter Details Date Type Department Care Team (Late st Contact Info) Description 12/27/2023 8:25 AM CDT Hospital Encounter Department of Radiation Oncology in [place], [place] [address] [place] [phone] Chris Field M.D. [address] [place] [phone] Social History Tobacco Use Types Packs/Day Years Used Date Smoking Tobacco: Never Passive Smoke Exposure: Never Smokeless Tobacco: Never Alcohol Use Standard Drinks/Week Comments Not Currently 0 (1 standard drink = 0.6 oz pur e alcohol) less than 1 [facility] Utilities Answer Date Recorded In the past 12 months has [employer], gas, oil, or water [employer] threatened to shut off services in your [...] any clubs o r organizations such as christianity groups, unions, fraternal or athletic groups, or [...] medical care, and heating? Somewhat hard 05/30/2022 [facility] of Occupat ional Health - [...] your living situation today? I have a [facility] place to live 08/02/2023 Education Answer [...] PM CDT documented as of this encounter Procedure Notes * Claudia Tai RTT - 12/27/2023 8:30 AM CDTAssociated Order(s): Clinical Setup Pre-Procedure Diagnose(s): Melanoma Malignant Skin Nose (HCC) Clinical Setup Performed by: Claudia Tai RTT Authorized by: Chris Field M.D. Clinical radiation treatment with orthovoltage was performed under direct supervision based on physician order. Please see the Radiation Oncology treatment planning system for complete details. Associated attestation - Chris Field M.D. - 01/05/2024 10:01 AM CDT I supervised this visit and agree with this assessment and plan. documented in this encounter Plan of Treatment Upcoming Encounters Date Type Department Care Team (Late st Contact Info) Description 02/02/2024 1:30 PM CDT Appointment Department of Laboratory Medicine in [address] [phone] Justin Snider M.D., Ph.D. [address] [place] [phone] 02/03/2024 1:30 PM CDT Virtual Visit Division of Hematology in [place], [place] [address] [place] [phone] Justin Snider M.D., Ph.D. [address] [place] [phone] documented as of this encounter Procedures Procedure Name Priority Date/Time Associated Diagnosis Comments CLINICAL SETUP Routine 12/27/2023 8:30 AM CDT Melanoma Malignant Skin Nose (HCC) documented in this encounter Visit Diagnoses Not on filedocumented in this encounter Additional Health Concerns Infection Onset Date Last Indicated Resolved Time Protective Environment 12/31/2022 12/31/2022 documented as of this encounter Care Teams Page Designer Relationship Specialty Start Date End Date Elsewhere, Pcp PCP - General Internal Medicine 11/12/21 documented as of this encounter
--- OUTSIDE RECORDS SUMMARY | 2024-01-13 15:41 | XMS_ITS | Encounter Summary ---
Author Organization [facility] Address [address] [place] [address] Care Team Providers Care Heavy Antiarmor Weapons Infantryman Name Role Phone Elsewhere, Pcp Primary Care Provider Unavailabl e Reason for Referral * Radiation Therapy (Routine) - Closed Specialty Diagnoses / Procedures Referred By Contac t Referred To Contact Diagnoses Secondary Malignant Neoplasm Bone (HCC) Procedures Management Visit Chris Field M.D. 200 [place] [phone] [facility] Referral ID Status Reason Start Date Expiration Date Visits Re quested Visits Authorized [id number] Closed 12/09/2023 12/08/2024 2 2 Reason for Visit * Radiation Therapy (Routine) - Closed Specialty Diagnoses / Procedures Referred By Contac t Referred To Contact Diagnoses Secondary Malignant Neoplasm Bone (HCC) Procedures Management Visit Chris Field M.D. 200 [place] [address] [facility] Referral ID Status Reason Start Date Expiration Date Visits Re quested Visits Authorized [id number] Closed 12/09/2023 12/08/2024 2 2 Encounter Details Date Type Department Care Team (Latest Contact Info) Description 12/28/2023 9:02 AM CDT Hospital Encounter Department of Radiation Oncology in [place], [place] 200 [place] [phone] [place] [address] Melanoma Malignant Skin Nose (HCC) (Primary Dx); Secondary Malignant Neoplasm Bone (HCC) Social History Tobacco Use Types Packs/Day Years Used Date Smoking Tobacco: Never Passive Smoke Exposure: Never Smokeless Tobacco: Never Alcohol Use Standard Drinks/Week Comments Not Currently 0 (1 standard drink = 0.6 oz pur e alcohol) less than 1 [facility] Utilities Answer Date Recorded In the past 12 months has e [employer], gas, oil, or water [employer] threatened to shut off services in your [...] often do you attend chur ch or nondenominational services? Never 05/30/2022 Do you belong to any clubs o r organizations such as hoahaoism groups, unions, fraternal or athletic groups, or [...] medical care, and heating? Somewhat hard 05/30/2022 [facility] of Occupat ional [facility] - Occupational Stress Questionnaire Answer Date Recorded [...] your living situation today? I have a [facility] place to live 08/02/2023 Education Answer [...] PM CDT documented as of this encounter Progress Notes * Chris Field M.D. - 12/28/2023 9:45 AM CDT Radiation Treatment Progress Summary Treatment Course: 2o Nose Plan ID Fractions Dose / Fraction (cGy) Dose Treated (cGy) Dose Planned (cGy) First Treatment Last Treatment Elapsed Days 1_LtNasalAla [phone] 12/27/2023 12/28/2023 1 Course Summary 12/27/2023 12/28/2023 1 SUBJECTIVE Mr. Justin Cano a 73 y.o. reports that he feels well. OBJECTIVE There were no vitals taken for this visit. ASSESSMENT / PLAN Patient seen on the ortho machine. Doing well. We will continue as planned. Signed by: Chris Field M.D. 12/28/2023 9:01 AM CDT documented in this encounter Plan of Treatment Upcoming Encounters Date Type Department Care Team (Late st Contact Info) Description 02/02/2024 1:30 PM CDT Appointment Department of Laboratory Medicine in [address] [phone] Justin Snider M.D., Ph.D. [address] [place] [phone] 02/03/2024 1:30 PM CDT Virtual Visit Division of Hematology in [place], [place] [address] [place] [phone] Justin Snider M.D., Ph.D. [address] [place] [phone] Scheduled Orders Name Type Priority Associated Diagnoses Orde r Schedule Management Visit Radiation Oncology Routine Secondary Malignant Neoplasm Bone (HCC) Once for 1 Occurrences starting 12/28/2023 until 12/28/2023 documented as of this encounter Visit Diagnoses Diagnosis Melanoma Malignant Skin Nose (HCC)- Primary Secondary Malignant Neoplasm Bone (HCC) documented in this encounter Additional Health Concerns Infection Onset Date Last Indicated Resolved Time Protective Environment 12/31/2022 12/31/2022 documented as of this encounter Care Teams Heavy Antiarmor Weapons Infantryman Relationship Specialty Start Date End Date Elsewhere, Pcp PCP - General Internal Medicine 11/12/21 documented as of this encounter
--- OUTSIDE RECORDS SUMMARY | 2024-01-13 15:41 | XMS_ITS | Encounter Summary ---
Author Organization [facility] Address [address] [place] [id number] Care Team Providers Care Parking Lot Attendant Name Role Phone Elsewhere, Pcp Primary Care Provider Unavailabl e Reason for Referral * MRI/CAT/PET Scan (Routine) - Closed Specialty Diagnoses / Procedures Referred By Contac t Referred To Contact Radiology Diagnoses Melanoma Malignant Skin Nose (HCC) Procedures CT Neck Soft Tissue with IV Contrast Chris Field M.D. 200 [place] [phone] [facility] Referral ID Status Reason Start Date Expiration Date Visits Re quested Visits Authorized [id number] Closed 12/09/2023 12/08/2024 1 1 Reason for Visit * MRI/CAT/PET Scan (Routine) - Closed Specialty Diagnoses / Procedures Referred By Contac t Referred To Contact Radiology Diagnoses Melanoma Malignant Skin Nose (HCC) Procedures CT Neck Soft Tissue with IV Contrast Chris Field M.D. [address] [place] [phone] [facility] Referral ID Status Reason Start Date Expiration Date Visits Re quested Visits Authorized [id number] Closed 12/09/2023 12/08/2024 1 1 Encounter Details Date Type Department Care Team (Latest Contact Info) Description 12/13/2023 5:57 PM CDT - 12/13/2023 11:59 PM CDT Hospital Encounter Department of Radiology, [facility], in [place], [place] 200 [place] [phone] Chris Field M.D. 200 [place] [address] Melanoma Malignant Skin Nose (HCC) Discharge Disposition: Home or Self Care Social History Tobacco Use Types Packs/Day Years Used Date Smoking Tobacco: Never Passive Smoke Exposure: Never Smokeless Tobacco: Never Alcohol Use Standard Drinks/Week Comments Not Currently 0 (1 standard drink = 0.6 oz pur e alcohol) less than 1 [facility] Utilities Answer Date Recorded In the [...] often do you attend chur ch or faith services? Never 05/30/2022 Do you belong to any clubs o r organizations such as pentecostal groups, unions, fraternal or athletic groups, or [...] medical care, and heating? Somewhat hard 05/30/2022 [facility]ational Stress Questionnaire Answer Date [...] your living situation today? I have a [place] place to live 08/02/2023 Education Answer Date [...] PM CDT documented as of this encounter Medications at Time of Discharge [...] Appointment Department of Laboratory Medicine in [address] [phone] Justin Snider M.D., Ph.D. 200 [place] [phone] 02/03/2024 1:30 PM CDT Virtual Visit Division of Hematology in [place], [place] 200 [place] [phone] Justin Snider M.D., Ph.D. 200 [place] [phone] documented as of this encounter Procedures Procedure Name Priority Date/Time Associated Diagnosis Comments CT NECK SOFT TISSUE WITH IV CONTRAST RAD - Routine (most inpatients and all outpatients) 12/13/2023 6:26 PM CDT Melanoma Malignant Skin Nose (HCC) documented in this encounter Results * CT Neck Soft Tissue with IV [...] non-melanoma skin cancers. 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 No cervical adenopathy. Chris CROCKETT CT PROCEDURES documented in this encounter Visit Diagnoses Diagnosis Melanoma Malignant Skin Nose (HCC) documented in this encounter Administered Medications Inactive Administered Medications - up to 3 most recent administrations Medication Order MAR Action Action Date Dose Rate Site iohexoL 300 mg iodine/mL solution 1-200 mL (Omnipaque) 1-200 mL, intravenous, Once in imaging, contrast, Starting on 8/12/24 at 1816, For 1 dose, Imaging Protocol Orders, Dose per Radiant Medication Guidelines Given 12/13/2023 6:16 PM CDT 120 mL sodium chloride (PF) 0.9 % injection 1-100 mL 1-100 mL, intravenous, Once, On 12/13/23 at 1845, For 1 dose, Imaging Protocol Orders, Dose per Radiant Medication Guidelines Given 12/13/2023 6:16 PM CDT 30 mL documented in this encounter Additional Health Concerns Infection Onset Date Last Indicated Resolved Time Protective Environment 12/31/2022 12/31/2022 documented as of this encounter Care Teams Parking Lot Attendant Relationship Specialty Start Date End Date Elsewhere, Pcp PCP - General Internal Medicine 11/12/21 documented as of this encounter
--- OUTSIDE RECORDS SUMMARY | 2024-01-13 15:41 | XMS_ITS | Encounter Summary ---
Author Organization [facility] Address [address] [place] [address] Care Team Providers Care Senior Merchandiser Name Role Phone Elsewhere, Pcp Primary Care Provider Unavailabl e Encounter Details Date Type Department Care Team (Late st Contact Info) Description 12/28/2023 8:26 AM CDT Hospital Encounter Department of Radiation Oncology in [place], [place] [address] [place] [phone] Chris Field M.D. [address] [place] [phone] Social History Tobacco Use Types Packs/Day Years Used Date Smoking Tobacco: Never Passive Smoke Exposure: Never Smokeless Tobacco: Never Alcohol Use Standard Drinks/Week Comments Not Currently 0 (1 standard drink = 0.6 oz pur e alcohol) less than 1 [facility] Utilities Answer Date Recorded In the past 12 months has [employer], gas, oil, or water [email or web address] threatened to shut off services in your [...] often do you attend chur ch or sabianism services? Never 05/30/2022 Do you belong to any clubs o r organizations such as muslim groups, unions, fraternal or athletic groups, or [...] medical care, and heating? Somewhat hard 05/30/2022 [facility] - [facility]ational [...] your living situation today? I have a [facility] place to live 08/02/2023 Education Answer [...] Appointment Department of Laboratory Medicine in [address] [phone] Justin Snider M.D., Ph.D. [address] [place] [phone] 02/03/2024 1:30 PM CDT Virtual Visit Division of Hematology in [place], [place] [address] [place] [phone] Justin Snider M.D., Ph.D. [address] [place] [phone] documented as of this encounter Visit Diagnoses Not on filedocumented in this encounter Additional Health Concerns Infection Onset Date Last Indicated Resolved Time Protective Environment 12/31/2022 12/31/2022 documented as of this encounter Care Teams Senior Merchandiser Relationship Specialty Start Date End Date Elsewhere, Pcp PCP - General Internal Medicine 11/12/21 documented as of this encounter
--- OUTSIDE RECORDS SUMMARY | 2024-01-13 15:41 | XMS_ITS | Encounter Summary ---
Author Organization [facility] Address [address] [place] [id number] Care Team Providers Care Pharmacy Clinical Specialist Name Role Phone Elsewhere, Pcp Primary Care Provider Unavailabl e Reason for Referral * Radiation Therapy (Routine) - Authorized Specialty Diagnoses / Procedures Referred By Contac t Referred To Contact Diagnoses Melanoma Malignant Skin Nose (HCC) Procedures Clinical Setup Chris Field M.D. [address] [place] [phone] [facility] Referral ID Status Reason Start Date Expiration Date V isits Requested Visits Authorized [id number] Authorized 12/09/2023 12/08/2024 1 1 * MRI/CAT/PET Scan (Routine) - Closed Specialty Diagnoses / Procedures Referred By Contac t Referred To Contact Radiology Diagnoses Melanoma Malignant Skin Nose (HCC) Procedures CT Neck Soft Tissue with IV Contrast Chris Field M.D. [address] [place] [phone] [facility] Referral ID Status Reason Start Date Expiration Date Visits Re quested Visits Authorized [id number] Closed 12/09/2023 12/08/2024 1 1 * Outpatient (Routine) - Closed Specialty Diagnoses / Procedures Referred By Contac t Referred To Contact Radiation Oncology Diagnoses Melanoma Malignant Skin Nose (HCC) Irena Pradhan M.D. [address] [place] [phone] [facility] Referral ID Status Reason Start Date Expiration Date Visits Re quested Visits Authorized [id number] Closed 12/07/2023 06/07/2025 1 1 Scheduling Instructions Please schedule for this week with Dr. Field (he okayed) Reason for Visit * Outpatient (Routine) - Closed Specialty Diagnoses / Procedures Referred By Contac t Referred To Contact Radiation Oncology Diagnoses Melanoma Malignant Skin Nose (HCC) Irena Pradhan M.D. [address] [place] [phone] [facility] Referral ID Status Reason Start Date Expiration Date Visits Re quested Visits Authorized [id number] Closed 12/07/2023 06/07/2025 1 1 Encounter Details Date Type Department Care Team (Latest Contact Info) Description 12/09/2023 12:48 PM CDT - 12/09/2023 11:59 PM CDT Hospital Encounter Department of Radiation Oncology in [place], [place] [address] [place] [phone] Chris Field M.D. [address] [place] [phone] Melanoma Malignant Skin Nose (HCC) Discharge Disposition: Home or Self Care Social History Tobacco Use Types Packs/Day Years Used Date Smoking Tobacco: Never Passive Smoke Exposure: Never Smokeless Tobacco: Never Alcohol Use Standard Drinks/Week Comments Not Currently 0 (1 standard drink = 0.6 oz pur e alcohol) less than 1 [facility] Utilities Answer Date Recorded In the past 12 months has e electric, gas, oil, or water [employer] threatened to shut off services in [...] often do you attend chur ch or muslim services? Never 05/30/2022 Do you belong to any clubs o r organizations such as jewish groups, unions, fraternal or athletic groups, or [...] medical care, and heating? Somewhat hard 05/30/2022 [facility] [employer] Occupat ional Health - Occupational Stress [...] your living situation today? I have a [facility] place to live 08/02/2023 Education Answer [...] - Inhaled Oxygen Concentration - - Weight 92.1 kg (203 lb) 12/09/2023 12:56 PM CDT Height - - Body Mass Index 26.22 11/11/2023 1:26 PM CDT documented in this [...] 11 11/22/2023 documented as of this encounter Consult Notes * Leti Richard M.B.B.S. - 12/09/2023 1:00 PM CDT RADIATION ONCOLOGY CONSULTATION Supervising Hims Clerk: Dr. Chris Garcia Ma Referring Provider: Irena Pradhan M.D. Home address: [address] [place] [phone] SUBJECTIVE History of present illness Mr. Justin Cano is a 73 y.o. male from [facility] with history of Waldenstrom's macroglobulinemia ,low-grade B-cell lymphoma,multiple melanoma and non-melanomatous skin cancers s/p palliative RT20 Gy/5 fractions to L3-L5 in December 2022. 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 History of multiple non-melanoma skin cancers. 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 Mr.Stephen Cano met with Dr. Toussaint to discuss surgery ,reluctant to pursue surgery due to expected wound care and met with Dr. Pradhan in and discussed radiotherapy with Electrons vsOrthovoltage. The patient's oncologic history is as follows: Oncology History Overview Note 2003: The patient began to develop significant neuropathy. He was evaluated by his neurologist, andan IgM level was tested as part of the clinical workup. 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 At that time, he did not have any anemia or thrombocytopenia, no evidence for lymphadenopathy, and was just observed. The patient's monoclonal spike remained stable. 2010: At that time, a repeat test still showed a low IgM level of 1.3 g/dL. At that time, however, the patient began to develop abdominal symptoms. He had episodes of diarrhea and cramping and evaluation did not find a cause but the patient did have resolution of these symptoms when he was subsequently treated for Waldenstrom's macroglobulinemia, and therefore, the symptoms are assumed to be related. 2012: The patient began to have an increased level of serum IgM and also developed progressive anemia. Treatment with single-agent rituximab was started in January 2013. He received four doses of treatment on a weekly schedule but did not significantly benefit, and the patient was then treated with rituximab every two months for the next two years. He remained on Rituxan until October 2014. January 2015: The patient was noted to be anemic. His hemoglobin had decreased to 7.9 g/dL, and his IgM had increased to 3640. He did not have any evidence of organ dysfunction. There was some discussion concerning optimal treatment. It was recommended that the patient be considered for a clinical trial of a BTK inhibitor, and the patient was referred to [facility], Division of Hematology, andwas seen initially on March 27, 2015. Lab tests showed that he had active disease with a hemoglobin of 7.2, increased total protein and IgM of 3670. Viscosity was slightly increased at 1.6. April 2015: Bone marrow aspirate and biopsy documented extensive involvement of the bone marrow with 60% involvement, positive for MYD88 L[address] mutation. CT scan of the chest, abdomen, and pelvis documented axillary, subpectoral, retrocrural, retroperitoneal and pelvic lymphadenopathy, with bilateral renal involvement suggesting possible involvement of the kidneys. A soft tissue paraspinal masswas also noted. He elected to receive treatment at [facility] and was treated with bendamustine incombination with rituximab and received four cycles of treatment. He completed his treatment in August 2015 and has been followed since then without therapy. December 2017: Neck pain and was given symptomatic management with instructions to follow up with hishome physician if his pain persisted. 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 At this time he still has persistent neck pain. He has also noticed some weight loss. He has weakness in his hands but no sensory changes. He has no fevers or night sweats. He has not noticed any other significant lymphadenopathy. Waldenstrom's Macroglobulinemia (HCC) 2003 Initial Diagnosis Waldenstrom's Macroglobulinemia (HCC) diagnosed at outside facility. Presented with neuropathy. IgMelevated at 1460. Bone marrow showed lymphoplasmacytic lymphoma. He had no evidence of anemia, thrombocytopenia, or lymphadenopathy, and he was observed. 2010 Other Stable M-spike of 1.3 g/dL. Developed abdominal symptoms with diarrhea, cramping which persisted until subsequent treatment for Waldenstrom's and therefore these symptoms were presumed to be related to Waldenstr??m's. 2012 Progression/Relapse Developed progressive anemia with increased IgM. 01/2013 - 10/2014 Chemotherapy Rituximab weekly x 4, then every 2 months for two years at outside facility. No significant benefit. 01/2015 Other Hemoglobin 7.9 g/dL, IgM increased to 3640. 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 04/04/[address] scan of chest, abdomen, and pelvis showed axillary, subpectoral, retrocrural, retroperitoneal and pelvic lymphadenopathy, with bilateral renal involvement suggesting possible involvement of the kidneys. Soft tissue paraspinal mass was also noted. 04/18/2015 - 07/11/2015 Chemotherapy Rituximab + bendamustine x 4 cycles 08/07/2015 Other IgM normal at 263. Observed. 12/2017 Progression/Relapse Presented with neck pain. MRI showed soft tissue mass extending into C2 and C3 with mild cord compression. 12/30/2017 Other IgM elevated at 1020. 02/07/2018 Biopsy/Pathology Soft Tissue, Cervical spine, C2/C3, CT guided FNA (smears/core biopsy): Involved by low grade B-cell lymphoma with features consistent with lymphoplasmacytic lymphoma. CD20 and BCL2 positive. Ki-67 indicates a low proliferative rate (5%). Bone marrow also showed low-grade B-cell lymphoma, consistent with previously diagnosed lymphoplasmacytic lymphoma; involving approximately 10% of marrow cellularity. 02/14/2018 - Chemotherapy RiTUXimab / Bendamustine 90 mg/m2 Start Date: 02/14/2018 12/24/2022 - 12/30/2022 Radiation Therapy L3-L5 to a dose of 2000 cGy in 5 fractions under the care of Dr. Fransico Peñaloza. Radiation Therapy Treatment Details (12/24/2022 - 12/30/2022) Site: Lumbar spine Technique: No technique specified Goal: Palliative Planned Treatment Start Date: 12/24/2022 01/11/2023 - Chemotherapy Zanubrutinib Start Date: 01/11/2023 Malignant Neoplasm Of Skin Lip Squamous Cell 06/03/2023 Other Dermatology appointment for skin cancer screening examination. Prior skin cancer history: Malignant melanoma in-situ, right lower abdomen, s/p wide local excision on 01/11/2023. Malignant melanoma, Breslow thickness 0.5 mm, right medial plantar foot s/p wide local excision on 08/26/2018. Malignant melanoma, Breslow depth 0.4 mm, right posterior upper arm s/p wide local excision on 05/08/2019. History of multiple nonmelanoma skin cancers. Physical examination of the lower mucosal lip/vermilion border demonstrated an ulcerated papule. Shave biopsy was performed. 06/03/2023 Biopsy/Pathology FINAL DIAGNOSIS A. Mid Lower Vermilion Lip, Skin shave biopsy: Invasive well differentiated squamous cell carcinoma, transected at base. COMMENT Clinical photographs reviewed. 07/13/2023 Surgery and Procedures Dermatology appointment for Mohs surgery. Examination of the mid lower vermilion lip revealed an exophytic tumor measuring 1.2 x 0.9 cm. This site was treated with Mohs surgery. The tumor was cleared with three stages with the second and third stage using MCK immunostains. The tumor invaded through the orbicularis auris muscle and required resection through the muscle. In addition perineural invasion was identified with the 2 nervesthat were most obvious measuring 0.06 mm in diameter, and 0.09 mm in diameter. Given these high-risk features this is [facility] stage T2b. Recommended adjuvant radiation and assessmentof the lymph nodes whether via sentinel lymph node biopsy or ultrasound depending on our colleaguespreference in head neck surgery. 08/09/2023 Other ENT Head and Neck Surgery consultation with Dr. Williamson. Plan for sentinel node biopsy for left lower lip SCC, possible unilateral or bilateral neck dissections. Radiation Oncology consultation with Dr. Barrientos who recommended a CT neck to complete his staging workup. Adjuvant radiation therapy was recommended, referral to Radiation Oncology in [place]. Referral to Dental for a custom stent. 08/20/[address] Neck Soft Tissue IMPRESSION: No findings for focal abnormal mass or pathologic adenopathy. 08/24/2023 Biopsy/Pathology [place] lymph node biopsy Pathology: Right perifacial sentinel dissection: 0/2 lymph nodes involved with tumor. Right level IB sentinel biopsy: 0/1 lymph node involved with tumor. Melanoma Malignant Skin Nose (HCC) 10/2013 Other History of malignant melanoma Malignant melanoma, Breslow thickness 0.5 mm, right medial plantar foot s/p wide local excision on 08/26/2018 Malignant melanoma, Breslow depth 0.4 mm, right posterior upper arm s/p wide local excision on 05/08/2019. Malignant melanoma in-kpmm-qltpv abdomen lower (treated via excision January 11, 2023) 10/15/2023 Other Dermatology appointment with Dr. Mica Inman where the patient reported a skin lesion on the left nasal sidewall that was brown in color. Physical examination demonstrated a poorly defined dark brown and light brown plaque on the left nasal sidewall at the position of previous surgical procedures with white scar like findings under dermoscopy, concerning for melanoma. Scouting biopsies were recommended. 10/15/2023 Biopsy/Pathology FINAL DIAGNOSIS A. Left Nasal Sidewall, Skin shave biopsy: Malignant melanoma without ulceration, Shorty level III, Breslow thickness at least 0.3 mm (see synoptic report), in association with dermal nevus Melanoma Synoptic Report Histologic Type: Lentigo maligna melanoma Maximum Tumor (Breslow) Thickness: 0.3 mm Macroscopic Satellite Nodule(s): Not identified Ulceration: Not identified Mitotic Rate: 0/mm 2 Microsatellite(s): Not identified Lymphovascular Invasion: Not identified Neurotropism: Not identified Tumor Regression: Not identified Tumor Infiltrating Lymphocytes: Non-brisk Shorty Level: III The tumor cells are immunoreactive for Melan-A and SOX10. Margin Status for Invasive Melanoma: Invasive melanoma present at peripheral margin. Margin Status for Melanoma in situ: Melanoma in situ present at both peripheral and deep margins (via follicular extension). The tumor appears peripherally and superficially transected in this shave biopsy; therefore, final determination of Breslow thickness and T-classification should be made after histopathological examination of the complete excisional specimen. Complete surgical excision with appropriate margins is recommended. Pathologic Stage Classification (pTNM, AJCC 8th Edition): TNM Descriptors (select all that apply): not applicable pT Category: pT1a 11/30/2023 Other Dermatology appointment with Dr. Oliverio Toussaint. After discussion, the patient was not interested in moving forward with Mohs micrographic surgery. The alternative option of treatment with primary radiation was discussed. Referral to Radiation Oncology. In the clinic today, Mr. Justin Cano reported that he was doing well without any pain without anynasal discharge, nor nasal bleeding. He notes the feeling swelling inside his nose since 2020 and associates it with scar tissue following his surgery for infiltrative basal cell carcinoma-left nasalala (treated with Mohs surgery today, March 18, 2021). He is otherwise doing well. PAST MEDICAL HISTORY History of malignant melanoma Malignant melanoma, Breslow thickness 0.5 mm, right medial plantar foot s/p wide local excision on 08/26/2018 Malignant melanoma, Breslow depth 0.4 mm, right posterior upper arm s/p wide local excision on 05/08/2019. 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 The patient does not have a history of lupus, scleroderma, or ulcerative colitis. The patient has no implanted medical devices. Social history is significant for never smoker. Prior history of radiation Treatment Course: [id number] Plan ID Fractions Dose / Fraction (cGy) Dose Treated (cGy) Dose Planned (cGy) First Treatment Last Treatment Elapsed Days [id number] 400 199912/25/2022 12/29/2022 4 Course Summary 12/25/2022 12/29/2022 4 Review of systems Review of systems as noted in HPI. OBJECTIVE Vitals Weight: 92 kg Physical exam ECO Constitutional: Pleasant, in no acute distress, ambulates without an assistive device. Skin: Left nasal sidewall reveals a lesion measuring approximately 2.0 x 3.0 cm in diameter. ASSESSMENT / PLAN #1 Left nasal skin lentigo maligna melanoma. Mr. Justin Cano is a 73 y.o. male from [facility] with history of Waldenstrom's macroglobulinemia ,low-grade B-cell lymphoma,multiple melanoma and non-melanomatous skin cancers s/p palliative RT20 Gy/5 fractions to L3-L5 in December 2022. 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 History of multiple non-melanoma skin cancers. 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 Mr.Stephen Cano met with Dr. Toussaint to discuss surgery ,reluctant to pursue surgery due to expected wound care and met with Dr. Pradhan in and discussed radiotherapy with Electrons vsOrthovoltage. I have reviewed the pertinent history, laboratory, and imaging studies. We discussed the logistics of orthovoltage radiation planning and daily treatment. We also reviewedthe acute and late toxicities associated with treatment including fatigue, skin erythema/desquamation, dry nose, naso-lacrimal duct blocking, impaired wound healing and risk of bone/cartilage necrosis, dental problems, vision loss and risk of secondary malignancies( 05/999). The patient displayed understanding of the risks and benefits. Justin Martinez expressed understanding of our discussions today and wishes to proceed with the Orthovoltage treatment starting on 12/27/2023. We will plan for 45 Gy in 10 fractions. We will also plan for CT scan of the neck before treatment for staging purposes given the last CT scan and lymph oscintigraphy was in August,. Justin Martinez is in agreement with this plan. Justin Martinez Was seen and evaluated by Dr. Field, please see attestation note for more details. All questions were answered to the patient's satisfaction. Our departmental contact information was provided to the patient who was encouraged to contact the Department of Radiation Oncology with further questions or concerns. Nely Ignacio.B.S. [id number]. Associated attestation - Chris Field M.D. - 12/21/2023 10:08 AM CDT I participated in this visit and agree with this assessment. documented in this encounter Plan of Treatment Upcoming Encounters Date Type Department Care Team (Late st Contact Info) Description 02/02/2024 1:30 PM CDT Appointment Department of Laboratory Medicine in [address] [phone] Justin Snider M.D., Ph.D. [address] [place] [phone] 02/03/2024 1:30 PM CDT Virtual Visit Division of Hematology in [place], [place] [address] [place] [phone] Justin Snider M.D., Ph.D. [address] [place] [phone] Scheduled Referrals Name Type Priority Associated Diagnoses Order Schedule Radiation Oncology - Skin consult (clinic) Outpatient Referral Routine Melanoma Malignant Skin Nose (HCC) Once for 1 Occurrences starting 12/09/2023 until 12/09/2023 documented as of this encounter Results * Clinical Setup (12/27/2023 8:30 AM CDT) Narrative [facility] - 12/27/2023 8:30 AM CDT Claudia Tai RTT ? 12/27/2023 ??8:33 AM Clinical Setup Performed by: Claudia Tai RTT Authorized by: Chris Field M.D. ?? Chris Garcia Ma, M.D. RADIATION ONCOLOGY O RDERABLES YEUNG MG na * CT Neck Soft Tissue with IV Contrast (12/13/2023 6:26 PM CDT) Anatomical Region Laterality Modality Neck, Neuroradiology RST [facility] , Neuroradiology ARZ [facility], Neuroradiology FLA [facility] N/A Computed Tomography, Compute d Tomography 12/13/2023 [...] non-melanoma skin cancers. Diagnosis of cT3 (T2b [facility]) SCC of the mid lower vermilion [...] multiple non-melanoma skin cancers.Diagnosis of cT3 (T2b [facility]) SCC of the mid lower vermilion [...] Chris Garcia Ma, M.D. IMG CT PROCEDURES documented in this encounter Visit Diagnoses Diagnosis Melanoma Malignant Skin Nose (HCC) Melanoma Malignant Skin Nose (HCC) documented in this encounter Additional Health Concerns Infection Onset Date Last Indicated Resolved Time Protective Environment 12/31/2022 12/31/2022 documented as of this encounter Care Teams Pharmacy Clinical Specialist Relationship Specialty Start Date End Date Elsewhere, Pcp PCP - General Internal Medicine 11/12/21 documented as of this encounter
--- OUTSIDE RECORDS SUMMARY | 2024-01-13 15:41 | XMS_ITS | Encounter Summary ---
Author Organization [facility] Address [address] [place] [id number] Care Team Providers Care Test Deck Supervisor Name Role Phone Elsewhere, Pcp Primary Care Provider Unavailabl e Reason for Referral * Outpatient (Routine) - Closed Specialty Diagnoses / Procedures Referred By Contac t Referred To Contact Radiation Oncology Diagnoses Melanoma Malignant Skin Nose (HCC) Irena Pradhan M.D. [address] [place] [phone] [facility] Referral ID Status Reason Start Date Expiration Date Visits Re quested Visits Authorized [id number] Closed 12/07/2023 06/07/2025 1 1 Scheduling Instructions Please schedule for this week with Dr. Field (he okayed) * Outpatient (Routine) - Closed Specialty Diagnoses / Procedures Referred By Contac t Referred To Contact Radiation Oncology Diagnoses Melanoma Malignant Skin Nose (HCC) Doretha Vivas M.D. [address] [place] [phone] [facility] Referral ID Status Reason Start Date Expiration Date Visits Re quested Visits Authorized [id number] Closed 11/30/2023 05/31/2025 1 1 Reason for Visit * Outpatient (Routine) - Closed Specialty Diagnoses / Procedures Referred By Contac t Referred To Contact Radiation Oncology Diagnoses Melanoma Malignant Skin Nose (HCC) Doretha Vivas M.D. 200 [place] [phone] [facility] Referral ID Status Reason Start Date Expiration Date Visits Re quested Visits Authorized [id number] Closed 11/30/2023 05/31/2025 1 1 Encounter Details Date Type Department Care Team (Latest Contact Info) Description 12/07/2023 9:00 AM CDT - 12/07/2023 1:40 PM CDT Hospital Encounter Department of Radiation Oncology in [place], [place] [address] [place] [phone] Irena Pradhan M.D. 200 [place] [phone] Melanoma Malignant Skin Nose (HCC) Social History Tobacco Use Types Packs/Day Years Used Date Smoking Tobacco: Never Passive Smoke Exposure: Never Smokeless Tobacco: Never Alcohol Use Standard Drinks/Week Comments Not Currently 0 (1 standard drink = 0.6 oz pur e alcohol) less than 1 [facility] Utilities Answer Date Recorded In the past 12 months has [employer], gas, oil, or water [employer] threatened to shut off services in your [...] often do you attend chur ch or confucianist services? Never 05/30/2022 Do you belong to [...] medical care, and heating? Somewhat hard 05/30/2022 [facility] [place] [facility] - Occupational Stress [...] your living situation today? I have a [facility] to live 08/02/2023 Education Answer Date [...] 12/07/2023 9:04 AM CD T Respiratory Rate - - Oxygen Saturation - - Inhaled Oxygen Concentration - - Weight 92.2 kg (203 lb 4.2 oz) 12/07/2023 9:04 A M CDT Height - - Body Mass Index 26.25 11/11/2023 1:26 PM CDT documented in this [...] as of this encounter Consult Notes * Namrata Moody P.A.-C., M.S. - 12/07/2023 9:00 AM CDT SUBJECTIVE REQUESTING PROVIDER Doretha Vivas M.D. CHIEF COMPLAINT/REASON FOR CONSULT 1. Melanoma Malignant Skin Nose (HCC) SUPERVISED BY: Irena Pradhan M.D. HISTORY OF PRESENT ILLNESS Mr. 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 His oncologic history is as follows: Oncology History [...] inhibitor, and the patient was referred to [facility], Division of Hematology, andwas seen initially on [...] noted. He elected to receive treatment at [facility] and was treated with bendamustine incombination with rituximab and received four cycles of treatment. He completed his treatment in August 2015 and has been followed since then without therapy. December 2017: Neck pain and was given symptomatic management with instructions to follow up with [facility] physician if his pain persisted. 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 Given these high-risk features this is [facility] stage T2b. Recommended adjuvant radiation and assessmentof [...] was recommended, referral to Radiation Oncology in [place]. Referral to Dental for a custom stent. 08/20/[address] Neck Soft Tissue IMPRESSION: No findings for focal abnormal mass or pathologic adenopathy. 08/24/2023 Biopsy/Pathology [place] lymph node biopsy Pathology: Right perifacial sentinel [...] wide local excision on 05/08/2019. Malignant melanoma [id number] abdomen lower (treated via excision January 11, [...] radiation was discussed. Referral to Radiation Oncology. INTERVAL HISTORY: The patient was seen and examined today with Dr. Pradhan. The patient reports an extensive history of skin cancers including melanoma and non-melanoma cancer. He reports that he had a previous non-melanoma skin cancer on the left nasal sidewall that was removed with surgical excision with a flap in March 2021. Shortly after that procedure, he noticed that the area turned brown. He denies any pain of the area. He denies any skin breakdown, bleeding, or discharge. The patient has received previous radiation therapy, as detailed above. He denies a history of connective tissue disorders or inflammatory bowel disease. His ECOG performance status is 0. REVIEW OF SYSTEMS Review of systems was negative except as documented above. MEDICAL HISTORY Past Medical History: Diagnosis Date Anemia Apnea Sleep Obstructive uses cpap Blood Transfusion No Diagnosis Ectasia Thoracic Aortic (HCC) 12/01/2010 Overview: 4.4 cm ascending aorta. 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 many years ago 09/08 right shoulder per pt Neuropathy Peripheral 07/17/2016 Skin Cancer (Primary) NOS Transient Ischemic Attack Waldenstrom's Macroglobulinemia (HCC) 03/27/2015 SURGICAL HISTORY Past Surgical History: Procedure Laterality Date BIOPSY SENTINEL LYMPH NODE Right 08/24/2023 Procedure: BIOPSY SENTINEL LYMPH NODE.; Surgeon: Guru Williamson M.D.; Location: [facility] OR MIDDLE EAR SURGERY MOHS SURGERY NOSE SURGERY SINUS SURGERY SKIN CANCER EXCISION VASECTOMY FAMILY HISTORY Family History Problem Relation Name Age of Onset Breast cancer Mother Keena Cano over 70 Hypertension Mother Keena Cano Waldenstrom's macroglobulinemia Father over 70 Breast cancer Maternal Grandmother SOCIAL HISTORY Social History Socioeconomic History Marital status: Spouse name: Mackenzie Number of children: 3 Highest education level: Bachelor's degree (e.g., BA, AB, BS) Tobacco Use Smoking status: Never Passive exposure: Never Smokeless tobacco: Never Vaping Use Vaping status: never used Substance and Sexual Activity Alcohol use: Not Currently Alcohol/week: 0.0 - 1.0 standard drinks of alcohol Comment: less than 1 Drug use: No Sexual activity: Not Currently control/protection: None OBJECTIVE BP 131/81 (BP Location: Right arm, Patient Position: Sitting, Cuff Size: Regular) Pulse 71 Temp36.4 ??C (Temporal) Wt 92.2 kg BMI 26.25 kg/m?? PHYSICAL EXAMINATION General: Patient is alert and oriented in no apparent distress. The patient is here today with his . Lungs: Clear to auscultation bilaterally. Heart: Regular rate and rhythm. Lymph: No palpable cervical lymphadenopathy bilaterally. ASSESSMENT / PLAN #1 Malignant melanoma, Shorty level III, Breslow thickness 0.3 mm, 0 mitosis/mm2, lentigo maligna type-left nasal sidewall #2 Extensive skin cancer history #3 Waldenstrom's macroglobulinemia with previous radiation therapy to L3-L5 to a dose of 2000 cGy in 5 fractions in December 2022 I had a detailed discussion with the patient and his regarding his lentigo maligna melanoma diagnosis. We reviewed his oncologic history as detailed above. We discussed the risks, benefits, and alternatives of radiotherapy in this setting. Dr. Pradhan offered radiation therapy to the left nasalsidewall in 10 or 20 fractions. We also [place] I discussed the logistics as well as the acute and chronic side effects of treatment in detail. Theacute side effects are common and include, but are not limited to, hair loss in the area treated, redness of skin that could blister and peel, nose dryness, watery eyes, and fatigue. Long-term side effects could include, but are not limited to, thinning of skin, telangiectasias, delayed healing of the treated site, wound healing problems should surgery be needed later, bone necrosis, vision loss,severe dry eye leading to loss of the eye, and secondary malignancy. The patient was provided with a written summary of recommendations. His questions were answered to his verbalized satisfaction. Dr. Pradhan also met with the patient today, please see her attestation for details. After their discussion, the patient wished to proceed with a consultation with a Radiation Oncology provider in [place] and a referral order was placed. Of note, the patient has a planned vacation from December 18-. The patient was provided with our contact information. He will contact us with questions or concerns. He verbally expressed his understanding of the plan. EDUCATION: Ready to learn, no apparent learning barriers were identified; learning preferences include listening. Explained diagnosis and treatment plan; patient expressed understanding of the content. PRIMARY PROVIDER Leslie Cho M.D. I personally spent 50 minutes in care of the patient today. Time includes both non face to face andface to face patient care. Signed by: Namrata Moody P.A.-C., M.S. 12/07/2023 12:03 PM CDT [facility] [address] [place] [phone] Associated attestation - Irena Pradhan M.D. - 12/07/2023 1:40 PM CDT RADIATION ONCOLOGY CONSULT I saw and evaluated the patient and participated in the shaikh portions of the service. I reviewed thedocumentation of Ms. Namrata Moody PA-C, MS and agree with the findings and plan. Please see Ms. Moody's detailed note for the patient's initial presentation and work-up. Briefly, Mr. Cano is a very pleasant 73 year old male with multiple melanoma and non-melanomatous skin cancerswho now has a lengtigo maligna melanoma (T1a) on his left nasal ala (which is actually a flap from a prior skin cancer surgery). He is reluctant to pursue surgery due to the wound care it would involve. He has had radiation to L3-L5 in December of 2022 for his Waldenstrom's. I have independently reviewed his imaging, operative and pathology reports. On exam, he appears well. He has a well healed biopsy site on the left nasal ala where the edges ofthe tumor are still visible. He has good images in [employer] pre and post- biopsy (October 15, 2023 and November 30, 2023, respectively.) His left nasal wall is thickened, but he states that is the flap and isunchanged. I don't appreciate any facial, parotid or neck adenopathy. We discussed the findings above and below in this note with the patient and his . We discussed his radiation treatment alternatives including electrons (could be done in [place]) vs orthovoltage radiation therapy (could only be done at [facility]). We discussed the process for electrons which would be two simulations with a dot.decimal bolus made in between the simulations. We discussed that if he decides against orthovoltage that I would see him back early next week and simulate him. Hopefully we could have things ready for him to start on December 27, 2023 when he returns from his week of vacation the week before. We discussed the rationale, risks, side effects and goals of radiation therapy. We discussed the acute as well as supervisor long goods risks, including, but not limited to fatigue, skin erythema/desquamation, dry nose, naso-lacrimal duct blocking, wound healing problems and small risks for bone/cartilage necrosis, dental problems, vision loss or secondary malignancies. They understood and their questions were answered. I had the opportunity to run his case by my H&N Radiation Oncology Colleagues in [place] and Dr. Field kindly agreed to add him on for a visit to discuss orthovoltage as definitive treatment. My thanks to Breana Burgess, Emir and Tammie for the opportunity to participate in this patient'scare. EDUCATION Ready to learn, no apparent learning barriers were identified; learning preferences include listening. Explained diagnosis and treatment plan; patient expressed understanding of the content. CONSENT Discussed the risks, benefits, alternatives, and the necessity of other members of the healthcare team participating in the procedure. All questions answered and consent given. DIAGNOSIS #1 Malignant melanoma, Shorty level III, Breslow thickness 0.3 mm, 0 mitosis/mm2, lentigo maligna type-left nasal sidewall #2 Extensive skin cancer history #3 Waldenstrom's macroglobulinemia with previous radiation therapy to L3-L5 to a dose of 2000 cGy in 5 fractions in December 2022 Signed by: Irena Pradhan M.D. 12/07/2023 documented in this encounter Plan of Treatment Upcoming Encounters Date Type Department Care Team (Late st Contact Info) Description 02/02/2024 1:30 PM CDT Appointment Department of Laboratory Medicine in [address] [phone] Justin Snider M.D., Ph.D. [address] [place] [phone] 02/03/2024 1:30 PM CDT Virtual Visit Division of Hematology in [place], [place] [address] [place] [phone] Justin Snider M.D., Ph.D. [address] [place] [phone] Scheduled Referrals Name Type Priority Associated Diagnoses Order Schedule Radiation Oncology - Skin consult (clinic) Outpatient Referral Routine Melanoma Malignant Skin Nose (HCC) Once for 1 Occurrences starting 12/07/2023 until 12/07/2023 Radiation Oncology - Skin consult (clinic) Outpatient Referral Routine Melanoma Malignant Skin Nose (HCC) Expected: 12/08/2023, Expires: 03/08/2025 documented as of this encounter Visit Diagnoses Diagnosis Melanoma Malignant Skin Nose (HCC) documented in this encounter Additional Health Concerns Infection Onset Date Last Indicated Resolved Time Protective Environment 12/31/2022 12/31/2022 documented as of this encounter Care Teams Test Deck Supervisor Relationship Specialty Start Date End Date Elsewhere, Pcp PCP - General Internal Medicine 11/12/21 documented as of this encounter
--- OUTSIDE RECORDS SUMMARY | 2024-01-13 15:42 | XMS_ITS | Encounter Summary ---
Author Organization [facility] Address [address] [place] [address] Care Team Providers Care Editor Magazine Name Role Phone Elsewhere, Pcp Primary Care Provider Unavailabl e Reason for Referral * Outpatient (Routine) - Authorized Specialty Diagnoses / Procedures Referred By Contac t Referred To Contact Dermatology Mica Inman M.D. [address] [phone] Oliverio Toussaint M.D., M.S. [address] [place] [phone] Referral ID Status Reason Start Date Expiration Date V isits Requested Visits Authorized [id number] Authorized 10/15/2023 04/15/2025 1 1 Reason for Visit * Outpatient (Routine) - Closed Specialty Diagnoses / Procedures Referred By Contac t Referred To Contact Dermatology Oliverio Toussaint M.D., M.S. [address] [place] [phone] [facility] Referral ID Status Reason Start Date Expiration Date Visits Re quested Visits Authorized [id number] Closed 07/14/2023 01/12/2025 1 1 Encounter Details Date Type Department Care Team ([facility] st Contact Info) Description 10/15/2023 11:00 AM CDT Office Visit Department of Dermatology in [place], [place] [address] [place] [address] Mica Inman M.D. [address] [place] [phone] Personal History Of Other Malignant Neoplasm Of Skin (Primary Dx); Dermatoheliosis; Other Melanin Hyperpigmentation; Nevi Multiple; Screening Examination Skin Cancer; Melanoma Personal History; Immunodeficiency Due To Drugs (HCC); Tumor Skin Uncertain Behavior; Keratosis Seborrheic Discharge Disposition: Home or Self Care Social History Tobacco Use Types Packs/Day Years Used Date Smoking Tobacco: Never Smokeless Tobacco: Never Alcohol Use Standard Drinks/Week Comments Not Currently 1 (1 standard drink = 0.6 oz pur e alcohol) less than [address] [facility] Utilities Answer Date Recorded In the past 12 months has [employer], gas, oil, or water [employer] threatened to shut off services in your [...] How often do you attend chur or alevism services? Never 05/30/2022 Do you belong to any clubs o r organizations such as episcopal groups, unions, fraternal or athletic groups, or [...] medical care, and heating? Somewhat hard 05/30/2022 [facility] [place] of Occupat ional Health - Occupational Stress [...] your living situation today? I have a [facility] place to live 08/02/2023 Education Answer [...] as of this encounter Progress Notes * iMca Inman M.D. - 10/15/2023 11:00 AM CDT Correspondence to: Mica Inman M.D. Referring provider: Oliverio Toussaint M.D., M.S. SUBJECTIVE CHIEF COMPLAINT / REASON FOR VISIT History of NMSC. HISTORY OF PRESENT ILLNESS Mr. Justin Cano is a 73 y.o. male who presents today for a skin cancer screening examination. Mr. Justin Cano has a history of nonmelanoma skin cancer. 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 Given the high-risk features he was referred to ENT and saw Dr. Williamson on 08/09/2023 and ultimately received a sentinel lymph node biopsy on 08/24/2023 which was negative for tumor. He was also seen by radiation oncologist on 08/09/2023 but since his SLNB was negative he did not pursue radiation therapy. CT head and neck 08/20/2023 was negative. Today he presents with his . They are concerned because they have noticed slight asymmetry in his face which he and his specifically noticed immediately in the postoperative unit after his sentinel lymph node biopsy was performed on 08/24/2023. They were told by ENT that this can take up to 6 months to correct however they are concerned that he will be permanently disfigured. They have noticed a spot on the left nasal sidewall that has been persistently brown in color. They would like it evaluated today. The patient states that he has had multiple Mohs surgical procedures on his noseperformed most recently in 07/2023. He denies any fevers, chills, night sweats. Allergies Allergen Reactions Dexamethasone (Pf) Other (see comments) Muscle fatigue and weakness Amoxicillin Other (see comments) Amoxicillin-induced aseptic meningitis Azithromycin Diarrhea intol diarrhea low bp Rituximab Rash MEDICAL HISTORY History of malignant melanoma Malignant melanoma, Breslow thickness 0.5 mm, right medial plantar foot s/p wide local excision on 08/26/2018 Malignant melanoma, Breslow depth 0.4 mm, right posterior upper arm s/p wide local excision on 05/08/2019. Malignant melanoma ht-cagi-yvjqr abdomen lower (treated via excision January 11, 2023) History of nonmelanoma skin cancer Infiltrative basal cell carcinoma-left nasal ala (treated with Mohs surgery today, March 18, 2021) Squamous cell carcinoma lf-rzuo-xscew anterior upper arm (treated with electrodesiccation curettagetoday March 18, 2021) Invasive well-differentiated squamous cell carcinoma-right shoulder (excised July 07, 2022) Squamous cell carcinoma ag-noai-zemcj lower chest (treated with electrodesiccation and curettage August 21, 2021) Squamous cell carcinoma xz-hlyt-gwze upper chest (treated with electrodesiccation and curettage August 21, 2021) Squamous cell carcinoma Situ-right lumbar back (treated with electrodesiccation and curettage June 02, 2022) Squamous cell carcinoma Situ-left nasal dorsum (treated with Mohs surgery today, August 11, 2022) Nodular basal cell carcinoma-right upper back (treated with electrodesiccation and curettage 2022) Poorly differentiated perineurally invasive squamous cell carcinoma invading through muscle (treated with Mohs surgery July 13, 2023), negative SLNB and adjuvant RT (08/2023) OBJECTIVE PHYSICAL EXAM General: Awake, alert, in no acute distress, and with appropriate affect. Eyes: No scleral injection or icterus. No eyelid abnormalities. Skin: I have examined the scalp, face, neck, chest, abdomen, back, bilateral upper extremities, andbilateral lower extremities, fingernails, toenails and buttocks with notable findings seen in the listed below: Light and dark brown well-circumscribed papules with regular pigment network under dermoscopy Light and dark brown ill-defined macules and patches with fine reticular network under dermoscopy Poorly defined dark brown and light brown plaque on the left nasal sidewall at the position of previous surgical procedures with white scar like findings under dermoscopy. Concerning for melanoma. 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 Sun protection and sun avoidance were reviewed with the patient. Education was provided regarding skin self-examination, the warning signs and symptoms of skin cancer, and the proper use of sunscreens. Appropriate SPFsunscreen was recommended. I would recommend a full skin cancer screening examination with an appropriately trained clinician six-month. #5 Banal-appearing nevi None of the patient's nevi reach the clinical threshold for biopsy. I recommend continued sun protection, self-skin examinations, and observation. Should any of the patient's nevi change in size, color, texture, or shape or develop symptoms such as itching or bleeding, I recommend an immediate return visit for reassessment. #6 Neoplasm(s) of Uncertain Behavior Location/Differential diagnosis: Left nasal sidewall - rule out melanoma We discussed if this returns consistent with a melanoma then we would recommend scouting biopsies prior to Mohs micrographic surgery with immunostains in order to better delineate the peripheral borders of the melanoma The patient has had multiple nonmelanoma skin cancers on his nose repaired with flaps (most recently 07/2022 CONSENT Discussed the risks, benefits, alternatives, and the necessity of other members of the healthcare team participating in the procedure. All questions answered and consent given. UNIVERSAL PROTOCOL Procedural pause conducted to verify: correct patient identity, procedure to be performed, and as applicable, correct side and site, correct patient position, and availability of implants, special equipment, or special requirements. PROCEDURE INFORMATION Shave biopsy. We explained the potential diagnosis and recommended that we obtain a biopsy. The risks and benefits of the procedure were discussed, and the patient consented to these procedures. Using 1% lidocainewith epinephrine for local anesthesia, a shave biopsy was obtained from the location noted above. Biopsy submitted to Dermatopathology for H&E. Special stains will be performed as indicated. The bleeding was well controlled with application of aluminum chloride. Dressing was applied, and wound care instructions were explained. Biopsy results and any further recommendations will be communicated to the patient by letter. Patient given pamphlet [id number]. #7 Seborrheic Keratosis #8 Lentigines The benign nature of the skin lesion(s) was discussed with the patient. No treatment is required. Irecommend continued observation. Should symptoms or changes develop related to this condition, I would recommend a return visit for reassessment. #9 History of sentinel lymph node biopsy with concern for facial asymmetry Discussed with patient the importance of discussing their concerns with seeing ENT Patient was told that it may take up to 6 months for any asymmetry he may be experiencing to correct itself however we discussed specifically to follow up with the ENT team if he has persistent concerns All questions answered. PATIENT EDUCATION Ready to learn. No apparent learning barriers were identified. Learning preferences include listening. Explained diagnosis and treatment plan; patient/guardian of patient expressed understanding of the content. surgical consultant, Dr. Orion Morin was available and did evaluate the patient and agreed with the plan. Mica Inman M.D. Dermatology documented in this encounter Plan of Treatment Upcoming Encounters Date Type Department Care Team (Late st Contact Info) Description 02/02/2024 1:30 PM CDT Appointment Department of Laboratory Medicine in [address] [phone] Justin Snider M.D., Ph.D. [address] [place] [phone] 02/03/2024 1:30 PM CDT Virtual Visit Division of Hematology in [place], [place] 200 [place] [phone] Justin Snider M.D., Ph.D. 200 [place] [phone] Scheduled Referrals Name Type Priority Associated Diagnoses Order Schedule Dermatology office visit (clinic) Outpatient Referral Routine Expected: 04/15/2024 (Approximate), Expires: 01/14/2025 documented as of this encounter Procedures Procedure Name Priority Date/Time Associated Diagnosis Comments DERMATOPATHOLOGY Routine 10/15/2023 11:4 3 AM CDT Personal History Of Other Malignant Neoplasm Of Skin Dermatoheliosis Other Melanin Hyperpigmentation Nevi Multiple Screening Examination Skin Cancer Melanoma Personal History Immunodeficiency Due To Drugs (HCC) documented in this encounter Results * Dermatopathology (10/15/2023 11:43 AM CDT) 10/25/2023 10:50 AM CDT [facility] Participated in the Interpretation Ryan Chopra M.D.-Pathology Fellow 10/25/2023 10:50 AM [facility] Report electronically signed by Debra Mo M.D. Seen in consultation with: Rhonda Frances M.D. 10/25/2023 10:50 AM T [facility] Gross Description Received in formalin labeled with [...] of the testing process was performed at [facility] eMindful site [id number]. 10/25/2023 10:50 AM CDT [facility]DR[facility] Skin (Left Nasal Sidewall) 10/15/2023 11:42 AM CDT Mica Inman M.D. LAB PATH DERM ORD ERABLES [facility] [address] [place] [address], [facility] PDRM [address] [place] [phone] documented in this encounter Visit Diagnoses Diagnosis Personal History Of Other Malignant Neoplasm Of Skin- Primary Dermatoheliosis Other Melanin Hyperpigmentation Nevi Multiple Screening Examination Skin Cancer Melanoma Personal History Immunodeficiency Due To Drugs (HCC) Tumor Skin Uncertain Behavior Keratosis Seborrheic documented in this encounter Additional Health Concerns Infection Onset Date Last Indicated Resolved Time Protective Environment 12/31/2022 12/31/2022 documented as of this encounter Care Teams Editor Magazine Relationship Specialty Start Date End Date Elsewhere, Pcp PCP - General Internal Medicine 11/12/21 documented as of this encounter
--- OUTSIDE RECORDS SUMMARY | 2024-01-13 15:42 | XMS_ITS | Encounter Summary ---
Author Organization [facility] Address [address] [place] [address] Care Team Providers Care School Athletic Director Name Role Phone Elsewhere, Pcp Primary Care Provider Unavailabl e Reason for Visit * Reason Onset Date Comments Pre-visit Intake 10/12/2023 Encounter Details Date Type Department Care Team (Latest Contact Info) Description 10/12/2023 11:30 AM CDT Clinical Communication Virtual Review in [address] [phone] Pre-visit Intake Social History Tobacco Use Types Packs/Day Years Used Date Smoking Tobacco: Never Smokeless Tobacco: Never Tobacco Cessation:Counseling Given: Not Answered Alcohol Use Standard Drinks/Week Comments Not Currently 1 (1 standard drink = 0.6 oz pur e alcohol) less than 1 [facility] Utilities Answer Date Recorded In the past 12 months has [facility] [employer], gas, oil, or water [employer] threatened to shut off services in your [...] How often do you attend chur or mormonism services? Never 05/30/2022 Do you belong to any clubs o r organizations such as nondenominational groups, unions, fraternal or athletic groups, or [...] medical care, and heating? Somewhat hard 05/30/2022 [facility] of Occupat ionne Health - Occupational Stress Questionnaire Answer Date [...] living situation today? I have a [facility] place to live 08/02/2023 Education Answer [...] CDT Appointment Department of Laboratory Medicine in [address] [phone] Justin Snider M.D., Ph.D. 200 [place] [phone] 02/03/2024 1:30 PM CDT Virtual Visit Division of Hematology in [place], [place] 200 [place] [phone] Justin Snider M.D., Ph.D. 200 [place] [phone] documented as of this encounter Visit Diagnoses Not on filedocumented in this encounter Additional Health Concerns Infection Onset Date Last Indicated Resolved Time Protective Environment 12/31/2022 12/31/2022 documented as of this encounter Care Teams School Athletic Director Relationship Specialty Start Date End Date Elsewhere, Pcp PCP - General Internal Medicine 11/12/21 documented as of this encounter
--- OUTSIDE RECORDS SUMMARY | 2024-01-13 15:42 | XMS_ITS | Encounter Summary ---
Author Organization [facility] Address [address] [place] [address] Care Team Providers Care Site Auditor Name Role Phone Elsewhere, Pcp Primary Care Provider Unavailabl e Encounter Details Date Type Department Care Team (Late st Contact Info) Description 10/15/2023 Ancillary Procedure Department of Dermatology Social History Tobacco Use Types Packs/Day Years Used Date Smoking Tobacco: Never Smokeless Tobacco: Never Alcohol Use Standard Drinks/Week Comments Not Currently 1 (1 standard drink = 0.6 oz pur e alcohol) less than 1 [facility] Utilities Answer Date Recorded In the [...] often do you attend chur ch or alevism services? Never 05/30/2022 Do you [...] medical care, and heating? Somewhat hard 05/30/2022 [facility] [place] of Occupat ional Health - Occupational Stress [...] living situation today? I have a [facility] place to live 08/02/2023 Education Answer [...] CDT Appointment Department of Laboratory Medicine in [address] [phone] Justin Snider M.D., Ph.D. [address] [place] [phone] 02/03/2024 1:30 PM CDT Virtual Visit Division of Hematology in [place], [place] [address] [place] [phone] Justin Snider M.D., Ph.D. [address] [place] [phone] documented as of this encounter Procedures Procedure Name Priority Date/Time Associated Diagnosis Comments DERMATOLOGY IMAGE EXAM Routine 10/15/2023 12:00 AM CDT documented in this encounter Results * nose, left nasal sidewall 17 Dermoscopy-Dermatology Image Exam (10/15/2023 12:00 AM CDT) Narrative [facility] - 10/15/2023 4:09 PM CDT This order has been created and [...] documented as of this encounter Care Teams Site Auditor Relationship Specialty Start Date End Date Elsewhere, Pcp PCP - General Internal Medicine 11/12/21 documented as of this encounter
--- OUTSIDE RECORDS SUMMARY | 2024-01-13 15:42 | XMS_ITS | Encounter Summary ---
Author Organization [facility] Address [address] [place] [address] Care Team Providers Care Banquet Set Up Person Name Role Phone Elsewhere, Pcp Primary Care Provider Unavailabl e Reason for Visit * Reason Onset Date Comments Appt Request 10/26/2023 Encounter Details Date Type Department Care Team (Late st Contact Info) Description 10/26/2023 Clinical Communication Department of Dermatology in [place], [place] [address] [place] [phone] Prescheduling, Provider Appt Request Social History Tobacco Use Types Packs/Day Years Used Date Smoking Tobacco: Never Smokeless Tobacco: Never Alcohol Use Standard Drinks/Week Comments Not Currently 1 (1 standard drink = 0.6 oz pur e alcohol) less than 1 [facility] Utilities Answer Date Recorded In the past 12 months has [facility] electric, gas, oil, or water company threatened [...] often do you attend chur ch or jehovah's witness services? Never 05/30/2022 Do you belong to any clubs o r organizations such as yarsanism groups, unions, fraternal or athletic groups, or [...] medical care, and heating? Somewhat hard 05/30/2022 [facility] of Occupat ional Health - Occupational [...] your living situation today? I have a [facility] place to live 08/02/2023 Education [...] Appointment Department of Laboratory Medicine in [address] [phone] Justin Snider M.D., Ph.D. [address] [place] [phone] 02/03/2024 1:30 PM CDT Virtual Visit Division of Hematology in [place], [place] [address] [place] [phone] Justin Snider M.D., Ph.D. [address] [place] [phone] documented as of this encounter Visit Diagnoses Not on filedocumented in this encounter Additional Health Concerns Infection Onset Date Last Indicated Resolved Time Protective Environment 12/31/2022 12/31/2022 documented as of this encounter Care Teams Banquet Set Up Person Relationship Specialty Start Date End Date Elsewhere, Pcp PCP - General Internal Medicine 11/12/21 documented as of this encounter
--- OUTSIDE RECORDS SUMMARY | 2024-01-13 15:42 | XMS_ITS | Encounter Summary ---
Author Organization [facility] Address [address] [place] [address] Care Team Providers Care Court Orderly Name Role Phone Elsewhere, Pcp Primary Care Provider Unavailabl e Encounter Details Date Type Department Care Team (Latest Contact Info) Description 11/11/2023 9:30 AM CDT - 11/11/2023 11:59 PM CDT Hospital Encounter Department of Laboratory Medicine and Pathology, [facility] in [place], [place] [address] [place] [phone] Justin Snider M.D., Ph.D. [address] [place] [phone] Waldenstrom's Macroglobulinemia (HCC) Discharge Disposition: Home or Self Care Social History Tobacco Use Types Packs/Day Years Used Date Smoking Tobacco: Never Passive Smoke Exposure: Never Smokeless Tobacco: Never Alcohol Use Standard Drinks/Week Comments Not Currently 0 (1 standard drink = 0.6 oz pur e alcohol) less than [address] [facility] Utilities Answer Date Recorded In the past 12 months has [employer], gas, oil, or water company threatened [...] How often do you attend chur or roman catholic services? Never 05/30/2022 Do you belong to any clubs o r organizations such as voodoo groups, unions, fraternal or athletic groups, or [...] medical care, and heating? Somewhat hard 05/30/2022 [facility] of Occupat ional Health - Occupational Stress [...] your living situation today? I have a [facility] place to live 08/02/2023 Education Answer [...] Take 81 mg by mouth daily. 03/27/2015 magnesium oxide 400 mg magnesium capsule Take 400 mg by mouth daily. multivitamin tablet Take 1 tablet by mouth daily. potassium chloride (KLOR-CON SPRINKLE) 10 mEq ER sprinkle capsule Take 10 mEq by mouth daily. 08/01/2018 hydroCHLOROthiazide (HYDRODIURIL) 25 mg tablet TAKE 1 TABLET DAILY 90 tablet 3 11/30/2022 12/01/2023 zanubrutinib (Brukinsa) 80 mg capsuleIndications:[place] jess's Macroglobulinemia (HCC),Neutropenia Drug Induced (HCC) Take 2 capsules (160 mg total) by mouth 2 (two) times a day. 112 capsule 3 07/19/2023 11/22/2023 documented as of this encounter Miscellaneous Notes * Result Encounter Note - Justin Snider M.D., Ph.D. - 11/11/2023 2:58 PM CDT Hi I've reviewed the result. The IgM level is within the normal range. Please let the patient know theresult. Thanks Hermes documented in this encounter Plan of Treatment Upcoming Encounters Date Type Department Care Team (Late st Contact Info) Description 02/02/2024 1:30 PM CDT Appointment Department of Laboratory Medicine in [address] [phone] Justin Snider M.D., Ph.D. [address] [place] [phone] 02/03/2024 1:30 PM CDT Virtual Visit Division of Hematology in [place], [place] [address] [place] [phone] Justin Snider M.D., Ph.D. [address] [place] [phone] documented as of this encounter Procedures Procedure Name Priority Date/Time Associated Diagnosis Comments CBC WITH DIFFERENTIAL, B Routine 11/11/2023 9:57 AM CDT Waldenstrom's Macroglobulinemia (HCC) ASPARTATE AMINOTRANSFERASE (AST), S/P Routine 11/11/2023 9:57 AM CDT Waldenstrom's Macroglobulinemia (HCC) POTASSIUM, S/P Routine 11/11/2023 9:57 AM CDT Waldenstrom's Macroglobulinemia (HCC) ALKALINE PHOSPHATASE, S/P Routine 11/11/2023 9:57 AM CDT Waldenstrom's Macroglobulinemia (HCC) IMMUNOGLOBULIN M (IGM), S Routine 11/11/2023 9:57 AM CDT Waldenstrom's Macroglobulinemia (HCC) CREATININE WITH EGFR, S/P Routine 11/11/2023 9:57 AM CDT Waldenstrom's Macroglobulinemia (HCC) CALCIUM, TOT, S/P Routine 11/11/2023 9:5 7 AM CDT Waldenstrom's Macroglobulinemia (HCC) BILIRUBIN, TOT, S/P Routine 11/11/2023 9 :57 AM CDT Waldenstrom's Macroglobulinemia (HCC) HPMD-6-[id number] (BETA-2-M), S Routine 11/11/2023 9:57 AM CDT Waldenstrom's Macroglobulinemia (HCC) ALBUMIN, S/P Routine 11/11/2023 9:57 AM CDT Waldenstrom's Macroglobulinemia (HCC) documented in this encounter Results * Immunoglobulin M (IgM) (11/11/2023 9:57 AM CDT) Immunoglobulin M (IgM), S 48 37 - 286 mg/dL 11/11/2023 2:40 PM CDT [facility] Blood (Blood, Venous) 11/11/2023 9:57 AM CDT 11/11/2023 2:04 PM CDT Justin Snider M.D., Ph.D. LAB BLOOD A DD-ON [facility] [address] [place] [address] [facility] [address] [place] [address] * Potassium (11/11/2023 9:57 AM CDT) Potassium, S 4.0 3.6 - 5.2 mmol/L 11/11/2023 11:04 AM CDT DTL Blood (Blood, Venous) 11/11/2023 9:57 AM CDT 11/11/2023 10:36 AM CDT Justin Snider M.D., Ph.D. LAB BLOOD A DD-ON Performing Organization Address City/[facility] Co de Phone Number [facility] [address] [place], [place] [address] 200 [place] [address] * (ABNORMAL) Creatinine with Estimated GFR (11/11/2023 9:57 AM CDT) Pathologist [facility] Creatinine 1.38(H) 0.74 - 1.35 mg/dL 11/11/2023 11:04 AM CDT DTL Estimated GFR (eGFR) 53(L) >=60 mL/min/BSA 11/11/2023 11:04 AM CDT DTL Comment: Estimated GFR calculated using the 2020 CKD_EPI creatinine equation. Blood (Blood, Venous) 11/11/2023 9:57 AM CDT 11/11/2023 10:36 AM CDT Justin Snider M.D., Ph.D. LAB BLOOD A DD-ON Performing Organization Address City/[facility]/ZIP Co de Phone Number [facility] [address] [place], [place] [address] 200 [place] [address] * (ABNORMAL) CBC with Differential, Blood (11/11/2023 [...] Snider M.D., Ph.D. LAB BLOOD A DD-ON [facility] [address] [place] [address], [facility] DTL [facility] [address] [place] [address] [facility] [address] [place] [address] * Calcium, Total (11/11/2023 9:57 AM CDT) Calcium, Total, S 9.9 8.8 - 10.2 mg/dL 11/11/2023 11:04 AM CDT DT Blood (Blood, Venous) 11/11/2023 9:57 AM CDT 11/11/2023 10:36 AM CDT Justin Snider M.D., Ph.D. LAB BLOOD A DD-ON Performing Organization Address City/[facility] Co de Phone Number [facility] 200 [place] [address] * Bilirubin, Total (11/11/2023 9:57 AM CDT) Bilirubin, Total, S 1.0 0.0 - 1.2 mg/dL 11/11/2023 11:04 AM CDT [facility] Blood (Blood, Venous) 11/11/2023 9:57 AM CDT 11/11/2023 10:36 AM CDT Justin Snider M.D., Ph.D. LAB BLOOD A DD-ON Performing Organization Address City/[facility] [place] [address], [place] [address] * (ABNORMAL) Dcqa-6-Upmqusgyktasv (Beta-2-M) (11/11/2023 9:57 AM CDT) Qcyr-9-Duroeqp obulin, S 3.03(H) 1.21 - 2.70 mcg/mL 11/11/2023 3:52 PM CDT [facility] Blood (Blood, Venous) 11/11/2023 9:57 AM CDT 11/11/2023 2:04 PM CDT Narrative Authorizing Provider Result Iraida Snider M.D., Ph.D. LAB BLOOD A DD-ON Performing Organization Address City/[facility] Co de Phone Number [facility] [address] [place] [address] [facility] [address] [place] [address] * AST (Aspartate Aminotransferase) (11/11/2023 9:57 AM CDT) Aspartate Aminotransferase (AST), S 24 8 - 48 U/L 11/11/2023 11:04 AM CDT DTL Blood (Blood, Venous) 11/11/2023 9:57 AM CDT 11/11/2023 10:36 AM CDT Justin Snider M.D., Ph.D. LAB BLOOD A DD-ON Performing Organization Address [facility] Co de Phone Number [facility] [address] 200 [place] [address] * Alkaline Phosphatase (11/11/2023 9:57 AM CDT) Alkaline Phosphatase, S 77 40 - 129 U/L 11/11/2023 11:04 AM CDT DTL Blood (Blood, Venous) 11/11/2023 9:57 AM CDT 11/11/2023 10:36 AM CDT Justin Snider M.D., Ph.D. LAB BLOOD A DD-ON Performing Organization Address [facility] Co de Phone Number [facility] [address] [place], [place] [phone] [place] [address] 200 [place] [address] * Albumin (11/11/2023 9:57 AM CDT) Albumin, S 4.4 3.5 - 5.0 g/dL 11/11/2023 11:04 AM CDT DTL Blood (Blood, Venous) 11/11/2023 9:57 AM CDT 11/11/2023 10:36 AM CDT Justin Snider M.D., Ph.D. LAB BLOOD A DD-ON [facility] [address] [place] [address], [facility] [address] [place] [address] documented in this encounter Visit Diagnoses Diagnosis Waldenstrom's Macroglobulinemia (HCC) documented in this encounter Additional Health Concerns Infection Onset Date Last Indicated Resolved Time Protective Environment 12/31/2022 12/31/2022 documented as of this encounter Care Teams Court Orderly Relationship Specialty Start Date End Date Elsewhere, Pcp PCP - General Internal Medicine 11/12/21 documented as of this encounter
--- OUTSIDE RECORDS SUMMARY | 2024-01-13 15:42 | XMS_ITS | Encounter Summary ---
Author Organization [facility] Address [address] [place] [address] Care Team Providers Care Development Mgr Name Role Phone Elsewhere, Pcp Primary Care Provider Unavailabl e Encounter Details Date Type Department Care Team (Late st Contact Info) Description 07/23/2015 Historical Ophthalmology RST OPH Link Fry M.D. Social History Tobacco Use Types Packs/Day Years Used Date Smoking Tobacco: Never Assessed Sex and Gender Information Value Date Recorded Sex Assigned at Male 09/16/2017 7:50 PM CDT Gender Identity Male 09/16/2017 7:50 PM CDT Sexual Orientation Straight 09/16/2017 7: 50 PM CDT documented as of this encounter Progress Notes * Link Fry M.D. - 07/23/2015 9:19 AM CDT Eye General CHIEF COMPLAINT follow up Red eye - left eye HISTORY OF PRESENT ILLNESS Patient says that his eyelid is less swollen, but redness is about the same. Patient says his vision is stable. Patient is currently on valtrex 3 times daily for 7 days. Patient denies any eye pain. MBC - no eye pain, vision stable, less swelling. Redness not improving. No photophobia, FB sensation. No flashes, new floaters, or diplopia. IMPRESSION / REPORT / PLAN 23 Jul 2015 Micro: HSV negative VZV negative adenovirus negative #1 Viral conjunctivitis - left eye 19 Jul 2015: Differential for this patient includes viral conjunctivitis vs bacterial conjunctivitis vs allergicconjunctivitis vs. HSV conjunctivitis. No evidence of endophthalmitis on exam. Viral conjunctivitisin setting of immunocompromise most likely considering exam findings and recent sick contact from son. Will continue current treatment and swab for HSV, VZV, and adenovirus. 23 Jul 2015: Symptoms have improved, no pain, more comfortable. Va somewhat stable at 20/40 pinholing OD. Conjunctiva with less chemosis, somewhat more injection. Cornea clear, sensation intact, no dendrites or pseudodendrites or infiltrates. AC trace cell 3 per HPF. Seen with [facility], will finish Valtrex 7 day course. RTC with worsening symptoms. Plan: - finish Valtrex 500 mg TID for 7 day course - cont preservative free artificial tears - Counseled patient to return to clinic if having symptoms of blurry vision, eye pain, photophobia,FB sensation, or other new concerning symptoms. - RTC prn #2 Refractive error DIAGNOSIS #1 Viral conjunctivitis - left eye #2 Refractive error CDM Reports - EYEGEN Id: [id number] Status: Fnl documented in this encounter Plan of Treatment Upcoming Encounters Date Type Department Care Team (Late st Contact Info) Description 02/02/2024 1:30 PM CDT Appointment Department of Laboratory Medicine in [address] [phone] Justin Snider M.D., Ph.D. [address] [place] [phone] 02/03/2024 1:30 PM CDT Virtual Visit Division of Hematology in [place], [place] [address] [place] [address] Justin Snider M.D., Ph.D. [address] [place] [phone] documented as of this encounter Visit Diagnoses Not on filedocumented in this encounter Additional Health Concerns Infection Onset Date Last Indicated Resolved Time COVID19 Pending 01/11/2020 01/11/2020 01/12/2020 2 :46 AM CDT COVID19 Pending 03/15/2021 03/15/2021 03/16/2021 1 2:48 AM CANDY BAR ATTENDANT Protective Environment 12/31/2022 12/31/2022 documented as of this encounter Care Teams Development Mgr Relationship Specialty Start Date End Date Elsewhere, Pcp PCP - General Internal Medicine 11/12/21 documented as of this encounter
--- OUTSIDE RECORDS SUMMARY | 2024-01-13 15:42 | XMS_ITS | Encounter Summary ---
Author Organization [facility] Address [address] [place] [phone] Care Team Providers Care Smoke Inspector Name Role Phone Elsewhere, Pcp Primary Care Provider Unavailabl e Reason for Visit * Reason Onset Date Comments Pre-visit Intake 11/09/2023 Encounter Details Date Type Department Care Team (Latest Contact Info) Description 11/09/2023 9:00 AM CDT Clinical Communication Virtual Review in [address] [phone] Pre-visit Intake Social History Tobacco Use Types Packs/Day Years Used Date Smoking Tobacco: Never Passive Smoke Exposure: Never Smokeless Tobacco: Never Tobacco Cessation:Counseling Given: No Alcohol Use Standard Drinks/Week Comments Not Currently 0 (1 standard drink = 0.6 oz pur e alcohol) less than 1 [facility] Utilities Answer Date Recorded In the past 12 months has [facility] [employer], gas, oil, or water [employer] threatened to shut off services in your [...] How often do you attend chur or scientologist services? Never 05/30/2022 Do you belong to any clubs o r organizations such as christian groups, unions, fraternal or athletic groups, or [...] medical care, and heating? Somewhat hard 05/30/2022 [facility] of Occupat ional Health - Occupational [...] your living situation today? I have a [facility] place to live 08/02/2023 Education Answer [...] Appointment Department of Laboratory Medicine in [address] [phone] Justin Snider M.D., Ph.D. 200 [place] [phone] 02/03/2024 1:30 PM CDT Virtual Visit Division of Hematology in [place], [place] 200 [place] [address] Justin Snider M.D., Ph.D. 200 [place] [phone] documented as of this encounter Visit Diagnoses Not on filedocumented in this encounter Additional Health Concerns Infection Onset Date Last Indicated Resolved Time Protective Environment 12/31/2022 12/31/2022 documented as of this encounter Care Teams Smoke Inspector Relationship Specialty Start Date End Date Elsewhere, Pcp PCP - General Internal Medicine 11/12/21 documented as of this encounter
--- OUTSIDE RECORDS SUMMARY | 2024-01-13 15:42 | XMS_ITS | Encounter Summary ---
Author Organization [facility] Address 200 [place] [address] Care Team Providers Care Telemarketing Agent Name Role Phone Elsewhere, Pcp Primary Care Provider Unavailabl e Reason for Referral * Outpatient (Routine) - Closed Specialty Diagnoses / Procedures Referred By Contac t Referred To Contact Dermatology Diagnoses Melanoma Malignant Skin Nose (HCC) Procedures TAYLOR MOHS 1-4 sites Mica Inman M.D. [address], [place] [phone] [facility] Referral ID Status Reason Start Date Expiration Date Visits Re quested Visits Authorized [id number] Closed 10/26/2023 10/25/2024 1 1 Encounter Details Date Type Department Care Team (Late st Contact Info) Description 10/26/2023 Orders Only Department of Dermatology in [place], [place] [address] [place] [phone] Mica Inman M.D. [address], [place] [phone] Melanoma Malignant Skin Nose (HCC) (Primary Dx) Social History Tobacco Use Types Packs/Day Years Used Date Smoking Tobacco: Never Smokeless Tobacco: Never Alcohol Use Standard Drinks/Week Comments Not Currently 1 (1 standard drink = 0.6 oz pur e alcohol) less than 1 [facility] Utilities Answer Date Recorded In the past 12 months has e [employer], gas, oil, or water [employer] threatened to shut off services in your [...] often do you attend chur ch or advent services? Never 05/30/2022 Do you belong to [...] medical care, and heating? Somewhat hard 05/30/2022 [facility] [place] of Occupat ional Health - Occupational Stress [...] your living situation today? I have a [facility] place to live 08/02/2023 Education [...] CDT Appointment Department of Laboratory Medicine in [address] [phone] Justin Snider M.D., Ph.D. [address] [place] [phone] 02/03/2024 1:30 PM CDT Virtual Visit Division of Hematology in [place], [place] [address] [place] [address] Justin Snider M.D., Ph.D. [address] [place] [phone] Scheduled Orders Name Type Priority Associated Diagnoses Orde r Schedule TAYLOR MOHS 1-4 sites Dermatology Routine Melanoma Malignant Skin Nose (HCC) Expected: 11/09/2023 (Approximate), Expires: 01/25/2025 documented as of this encounter Visit Diagnoses Diagnosis Melanoma Malignant Skin Nose (HCC)- Primary documented in this encounter Additional Health Concerns Infection Onset Date Last Indicated Resolved Time Protective Environment 12/31/2022 12/31/2022 documented as of this encounter Care Teams Telemarketing Agent Relationship Specialty Start Date End Date Elsewhere, Pcp PCP - General Internal Medicine 11/12/21 documented as of this encounter
--- OUTSIDE RECORDS SUMMARY | 2024-01-13 15:42 | XMS_ITS | Encounter Summary ---
Author Organization [facility] Address [address] [place] [phone] Care Team Providers Care Logistics Technician Name Role Phone Elsewhere, Pcp Primary Care Provider Unavailabl e Reason for Referral * Outpatient (Routine) - Authorized Specialty Diagnoses / Procedures Referred By Darrick coppola Referred To Contact Hematology Oncology Justin Sniedr M.D., Ph.D. [address] [place] [phone] [facility] Referral ID Status Reason Start Date Expiration Date V isits Requested Visits Authorized [id number] Authorized 11/11/2023 05/12/2025 1 1 Reason for Visit * Outpatient (Routine) - Closed Specialty Diagnoses / Procedures Referred By Darrick coppola Referred To Contact Hematology Oncology Justin Snider M.D., Ph.D. [address] [place] [phone] [facility] Referral ID Status Reason Start Date Expiration Date Visits Re quested Visits Authorized [id number] Closed 08/12/2023 02/10/2025 1 1 Encounter Details Date Type Department Care Team (Latest Contact Info) Description 11/11/2023 1:30 PM CDT Office Visit Division of Hematology in [place], [place] [address] [place] [phone] Justin Snider M.D., Ph.D. 200 [place] [phone] Lymphoplasmacytic Lymphoma (HCC) (Primary Dx); Waldenstrom's Macroglobulinemia (HCC) Social History Tobacco Use Types Packs/Day Years Used Date Smoking Tobacco: Never Passive Smoke Exposure: Never Smokeless Tobacco: Never Alcohol Use Standard Drinks/Week Comments Not Currently 0 (1 standard drink = 0.6 oz pur e alcohol) less than 1 [facility] Utilities Answer Date Recorded In the past 12 months has e [employer], gas, oil, or water [employer] threatened to shut off services in your [...] often do you attend chur ch or evangelical services? Never 05/30/2022 Do you belong to any clubs o r organizations such as samaritan groups, unions, fraternal or athletic groups, or [...] medical care, and heating? Somewhat hard 05/30/2022 [facility] ional [facility] - [...] your living situation today? [facility] 08/02/2023 Education Answer [...] Sign Reading Time Taken Comments Blood Pressure 143/83 11/11/2023 1:26 PM CDT Pulse 72 11/11/2023 1:26 PM CDT Temperature 36.9 ??C (98.5 ??F) 11/11/2023 1:26 PM CD T Respiratory Rate - - Oxygen Saturation 96% 11/11/2023 1:26 PM CDT Inhaled Oxygen Concentration - - Weight 92.3 kg (203 lb 6 oz) 11/11/2023 1:26 PM CDT Height 187.4 cm (6' 1.78) 11/11/2023 1:26 PM CD T Body Mass Index 26.27 11/11/2023 1:26 PM CDT documented in this encounter Progress Notes * Justin Snider M.D., Ph.D. - 11/11/2023 1:30 PM CDT SUBJECTIVE Referring Provider Justin Snider M.D., Ph.D. CHIEF COMPLAINT/REASON FOR VISIT Waldenstrom's macroglobulinemia HISTORY OF PRESENT ILLNESS Mr. Cano is a 73-year-old patient, who in 2003 began to develop significant neuropathy. He was evaluated by his neurologist, and an IgM level was tested as part of [...] just observed. The patient's monoclonal spike remained stable until 2010.At that time, a repeat test still showed a low IgM level of 1.3 g/dL. At that time, however, the pat ient began to develop abdominal symptoms. He had episodes of diarrhea and cramping and evaluation of did not find a cause but the patient did have resolution of these symptoms when he was subsequently treated for Waldenstrom's macroglobulinemia, and therefore, the symptoms are assumed to be related. In 2012, the patient began to have an increased level of serum IgM and also developed progressive anemia. Treatment with single-agent rituximab was started in January 2013. He received four doses of treatment on a weekly schedule but did not significantly benefit, and the patient was then treated with rituximab every two months for the next two years. He remained on Rituxan until October 2014. Upon evaluation in January 2015, the patient was noted to be anemic. His hemoglobin had decreased to7.9 g/dL, and his IgM had increased to 3640. He did not have any evidence of organ dysfunction. There was some discussion concerning optimal treatment. It was recommended that the patient be considered for a clinical trial of a BTK inhibitor, and the patient was referred to [facility], Division ofHematology, and was seen initially on March 27, 2015. Lab tests showed that he had active disease with a hemoglobin of 7.2, increased total protein and IgM of 3670. Viscosity was slightly increased at 1.6. 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 CT scan of the chest, abdomen, and pelvis documented axillary, subpectoral, retrocrural, retroperitoneal and pelvic lymphadenopathy, with bilateral renal involvement suggesting possible involvement of the kidneys. A soft tissue paraspinal mass was also noted. He elected to receive treatment at [facility] and was treated with bendamustine in combination with rituximab and received four cycles of treatment. He completed his treatment in August 2015 and was then followed without therapy. In December 2017, the patient presented with significant neck pain. This was initially managed symptomatically but due to lack of improvement a MRI scan of the neck was done. This showed a soft tissue mass extending into C2 and C3 with mild cord compression. The patient was admitted to hospital and underwent a needle biopsy of the mass. This showed recurrent lymphoplasmacytic lymphoma. 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 A PET scan was done to exclude transformation and this showed a low level SUV uptake at the site of the neck mass but no other significant sites of disease except will a number of small lymph nodes in the neck. The patient was started on steroids for symptom management and was then treated with bendamustine plus rituximab. He received 6 cycles of treatment and had a good response to treatment. A repeat MRI scan confirmed the response to therapy. He was evaluated for possible consolidation radiation therapy to the C2-C3 region. After discussion with Radiation Oncology he declined this therapy. We also discussed the possibility of maintenance therapy with rituximab but the patient would prefered to be re-treated as needed rather than receiving maintenance therapy. He was therefore observed without treatment. In December 2022, the patient presented with a 2 to three-month history of increasing leg pain with peripheral weakness and increasing neuropathy. His lab results showed evidence of disease progressionwith an increase in the serum IgM level to 1130 and an increase in the beta 2 microglobulin. Due tothe neurological symptoms, an MRI scan of the lumbar spine was done. This showed involvement of L4 with soft tissue extension and regional lymphadenopathy. The patient was admitted to hospital and a biopsy obtained from the L4 region showed involvement by low-grade lymphoma. A bone marrow aspirate and biopsy was repeated which showed approximately 5% involvement by lymphoplasmacytic lymphoma. A PET scan confirmed the regional lymphadenopathy and involvement of L4. A more extensive MRI evaluation of the head, neck and upper spine did not show any other sites of disease. The patient received palliative radiation therapy to the L4 area and surrounding lymphadenopathy. He received 2000 cGy in 5fractions. He also received high-dose steroids which was subsequently tapered down. He was then started on zanubrutinib and has responded well to treatment. The patient continues to be seen on a 3 monthly basis. He returns today for a follow-up visit. Overthe recent months he has had difficulty with multiple skin lesions. 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 He recently had a biopsy from his nose which shows melanoma. He is planned for a wider excision of this lesion. I recommended that his zanubrutinib be held for 5 days prior to the procedure. He should also hold the zanubrutinib for 5 days post procedure.His Waldenstrom's macroglobulinemia as well controlled and a delay in his therapy will not be of significant consequence. I shared this all with the patient. I also shared with them that lab tests today are satisfactory. The following portions of the patient's history were reviewed and updated as appropriate: current medications, medical history, and surgical history. REVIEW OF SYSTEMS Non-contributary OBJECTIVE Vitals: 11/11/23 1326 BP: 143/83 Patient Position: Sitting Pulse: 72 Temp: 36.9 ??C Height: 187.4 cm Weight: 92.3 kg SpO2: 96% TempSrc: Tympanic Body surface area is 2.19 meters squared. PHYSICAL EXAM General: ECOG performance score 1 Skin: Normal ENT: No evidence of Waldeyer's ring involvement. No mucositis Lymph: No evidence of peripheral adenopathy in the neck axilla femoral or inguinal areas Lungs: Clear to auscultation and percussion Cardiac: Regular rate and rhythm without significant murmur Abdomen: No tenderness, organomegaly or palpable masses Extremities: No edema Neuro: Alert and oriented x3 DIAGNOSTICS I have reviewed the recent relevant labs. ASSESSMENT / PLAN #1 Waldenstrom's Macroglobulinemia (HCC) I reviewed with the patient and his that he continues to do well. His Waldenstrom's macroglobulinemia remains in remission with no evidence of disease progression. As mentioned above, I recommended holding zanubrutinib while he undergoes the surgical procedure. The patient will return again in3 months' time for a follow-up visit. I recommended not testing for his serum IgM levels until he has been back on therapy for at least 1-2 months. This was all discussed in detail and all questions were answered. Follow-up: Return to clinic in 3 months Education We discussed the diagnosis and treatment plan in detail. The patient expressed understanding of thecontent. No apparent learning barriers were identified; learning preferences include listening. I spent 25 minutes face to face and non-face to face caring for the patient today. Signed by: Justin Snider M.D., Ph.D. 11/11/2023 2:52 PM CDT documented in this encounter Plan of Treatment Upcoming Encounters Date Type Department Care Team (Late st Contact Info) Description 02/02/2024 1:30 PM CDT Appointment Department of Laboratory Medicine in [place] [address] [place] [address] Justin Snider M.D., Ph.D. [address] [place] [phone] 02/03/2024 1:30 PM CDT Virtual Visit Division of Hematology in [place], [place] [address] [place] [phone] Justin Snider M.D., Ph.D. [address] [place] [phone] Scheduled Orders Name Type Priority Associated Diagnoses Orde r Schedule Albumin Lab Routine Lymphoplasmacytic Lymphoma (HCC) Expected: 02/11/2024 (Approximate), Expires: 02/10/2025 Alkaline Phosphatase Lab Routine Lymphoplasmacytic Lymphoma (HCC) Expected: 02/11/2024 (Approximate), Expires: 02/10/2025 AST (Aspartate Aminotransferase) Lab Routine Lymphoplasmacytic Lymphoma (HCC) Expected: 02/11/2024 (Approximate), Expires: 02/10/2025 Zvhz-2-Jzfiwlgdtqdos (Beta-2-M) Lab Routine Lymphoplasmacytic Lymphoma (HCC) Expected: 02/11/2024 (Approximate), Expires: 02/10/2025 Bilirubin, Total Lab Routine Lymphoplasmacytic Lymphoma (HCC) Expected: 02/11/2024 (Approximate), Expires: 02/10/2025 Calcium, Total Lab Routine Lymphoplasmacytic Lymphoma (HCC) Expected: 02/11/2024 (Approximate), Expires: 02/10/2025 CBC with Differential, Blood Lab Routine Lymphoplasmacytic Lymphoma (HCC) Expected: 02/11/2024 (Approximate), Expires: 02/10/2025 Creatinine with Estimated GFR Lab Routine Lymphoplasmacytic Lymphoma (HCC) Expected: 02/11/2024 (Approximate), Expires: 02/10/2025 Potassium Lab Routine Lymphoplasmacytic Lymphoma (HCC) Expected: 02/11/2024 (Approximate), Expires: 02/10/2025 Quantitative M-protein Study Lab Routine Lymphoplasmacytic Lymphoma (HCC) Waldenstrom's Macroglobulinemia (HCC) Expected: 02/11/2024 (Approximate), Expires: 02/10/2025 Sodium Lab Routine Lymphoplasmacytic Lymphoma (HCC) Expected: 02/11/2024 (Approximate), Expires: 02/10/2025 Immunoglobulin M (IgM) Lab Routine Lymphoplasmacytic Lymphoma (HCC) Expected: 02/11/2024 (Approximate), Expires: 02/10/2025 Immunoglobulin G (IgG) Lab Routine Lymphoplasmacytic Lymphoma (HCC) Expected: 02/11/2024 (Approximate), Expires: 02/10/2025 Scheduled Referrals Name Type Priority Associated Diagnoses Order Schedule Hematology office visit (clinic) [place]; Lymphoma; General Outpatient Referral Routine Expected: 02/11/2024 (Approximate), Expires: 02/10/2025 documented as of this encounter Visit Diagnoses Diagnosis Lymphoplasmacytic Lymphoma (HCC)- Primary Waldenstrom's Macroglobulinemia (HCC) documented in this encounter Additional Health Concerns Infection Onset Date Last Indicated Resolved Time Protective Environment 12/31/2022 12/31/2022 documented as of this encounter Care Teams Logistics Technician Relationship Specialty Start Date End Date Elsewhere, Pcp PCP - General Internal Medicine 11/12/21 documented as of this encounter
--- OUTSIDE RECORDS SUMMARY | 2024-01-13 15:42 | XMS_ITS | Encounter Summary ---
Author Organization [facility] Address [address] [place] [address] Care Team Providers Care Saw Operator Name Role Phone Elsewhere, Pcp Primary Care Provider Unavailabl e Encounter Details Date Type Department Care Team (Late st Contact Info) Description 07/19/2015 Historical Ophthalmology [facility] Likn Fry M.D. Social History Tobacco Use Types Packs/Day Years Used Date Smoking Tobacco: Never Assessed Sex and Gender Information Value Date Recorded Sex Assigned at Male 09/16/2017 7:50 PM CDT Gender Identity Male 09/16/2017 7:50 PM CDT Sexual Orientation Straight 09/16/2017 7: 50 PM CDT documented as of this encounter Progress Notes * Link Fry M.D. - 07/19/2015 8:36 PM CDT Eye General CHIEF COMPLAINT Red eye HISTORY OF PRESENT ILLNESS MBC - Red left eye started 2 days ago. Associated with blurry vision left eye and monocular diplopia left eye. FB sensation left eye. No photophobia. No flashes or floaters. On chemotherapy with Rituxan and Bendamustine for Waldenstroms Macroglobulinemia. Last dose was 07/09 and 07/10. Started Rituxanin Jan 2013 and Bendamustine Apr 2015. Was started on Valtrex 500 mg TID yesterday. No history of cold sores. No other previous ocular history, no history of LASIK, no contact lens use. His son had a cold 6 days ago. Has not started any new medicines. IMPRESSION / REPORT / PLAN 21 Jul 2015 Micro: HSV negative VZV negative adenovirus pending #1 Red eye - left eye Differential for this patient includes viral conjunctivitis vs bacterial conjunctivitis vs allergicconjunctivitis vs. HSV conjunctivitis. No evidence of endophthalmitis on exam. Viral conjunctivitisin setting of immunocompromise most likely considering exam findings and recent sick contact from son. Will continue current treatment and swab for HSV, VZV, and adenovirus. Plan: - cont Valtrex 500 mg TID - start preservative free artificial tears - swab HSV, VZV, adenovirus - RTC wednesday - Counseled patient to return to clinic if having symptoms of blurry vision, eye pain, photophobia,FB sensation, or other new concerning symptoms. #2 Refractive error Left eye with vision 20/100 that pinholes to 20/30. DIAGNOSIS #1 Red eye - left eye #2 Refractive error CDM Reports - EYEGEN Id: [id number] Status: Fnl documented in this encounter Plan of Treatment Upcoming Encounters Date Type Department Care Team (Late st [facility] Info) Description 02/02/2024 1:30 PM CDT Appointment Department of Laboratory Medicine in [address] [phone] Justin Snider M.D., Ph.D. [address] [place] [phone] 02/03/2024 1:30 PM CDT Virtual Visit Division of Hematology in [place], [place] [address] [place] [phone] Justin Snider M.D., Ph.D. [address] [place] [phone] documented as of this encounter Visit Diagnoses Not on filedocumented in this encounter Additional Health Concerns Infection Onset Date Last Indicated Resolved Time COVID19 Pending 01/11/2020 01/11/2020 01/12/2020 2 :46 AM CDT COVID19 Pending 03/15/2021 03/15/2021 03/16/2021 1 2:48 AM DEWATERER OPERATOR Protective Environment 12/31/2022 12/31/2022 documented as of this encounter Care Teams Saw Operator Relationship Specialty Start Date End Date Elsewhere, Pcp PCP - General Internal Medicine 11/12/21 documented as of this encounter
--- OUTSIDE RECORDS SUMMARY | 2024-01-13 15:42 | XMS_ITS | Encounter Summary ---
Author Organization [facility] Address [address] [place] [address] Care Team Providers Care Oil Field Rig Builder Name Role Phone Elsewhere, Pcp Primary Care Provider Unavailabl e Encounter Details Date Type Department Care Team (Late st Contact Info) Description 10/25/2023 CPAP Download Remote Patient Monitoring [facility] [address] [place] [phone] [facility], Provider, M.B., Ph.D. Social History Tobacco Use Types Packs/Day Years Used Date Smoking Tobacco: Never Smokeless Tobacco: Never Alcohol Use Standard Drinks/Week Comments Not Currently 1 (1 standard drink = 0.6 oz pur e alcohol) less than 1 [facility] Utilities Answer Date Recorded In the past 12 months has e electric, gas, oil, or water [employer] threatened to shut off services in your [...] medical care, and heating? Somewhat hard 05/30/2022 [facility] Occupat ional Health - Occupational Stress [...] CDT Appointment Department of Laboratory Medicine in [address] [phone] Justin Snider M.D., Ph.D. [address] [place] [phone] 02/03/2024 1:30 PM CDT Virtual Visit Division of Hematology in [place], [place] [address] [place] [phone] Justin Snider M.D., Ph.D. [address] [place] [phone] documented as of this encounter Visit Diagnoses Not on filedocumented in this encounter Additional Health Concerns Infection Onset Date Last Indicated Resolved Time Protective Environment 12/31/2022 12/31/2022 documented as of this encounter Care Teams Oil Field Rig Builder Relationship Specialty Start Date End Date Elsewhere, Pcp PCP - General Internal Medicine 11/12/21 documented as of this encounter
--- OUTSIDE RECORDS SUMMARY | 2024-01-13 15:42 | XMS_ITS | Encounter Summary ---
Author Organization [facility] Address [address] [place] [address] Care Team Providers Care Tentering Machine Off Bearer Name Role Phone Elsewhere, Pcp Primary Care Provider Unavailabl e Encounter Details Date Type Department Care Team (Late st Contact Info) Description 10/15/2023 12:05 AM CDT Ancillary Procedure Department of Dermatology Social History Tobacco Use Types Packs/Day Years Used Date Smoking Tobacco: Never Smokeless Tobacco: Never Alcohol Use Standard Drinks/Week Comments Not Currently 1 (1 standard drink = 0.6 oz pur e alcohol) less than 1 [facility] Utilities Answer Date Recorded In the [...] often do you attend chur ch or yazdanism services? Never 05/30/2022 Do you belong to [...] medical care, and heating? Somewhat hard 05/30/2022 [facility] of Occupat ional Health - Occupational Stress [...] your living situation today? I have a [facility] place to live 08/02/2023 Education [...] CDT Appointment Department of Laboratory Medicine in [address] [phone] Justin Snider M.D., Ph.D. [address] [place] [phone] 02/03/2024 1:30 PM CDT Virtual Visit Division of Hematology in [place], [place] [address] [place] [phone] Justin Snider M.D., Ph.D. [address] [place] [phone] documented as of this encounter Procedures Procedure Name Priority Date/Time Associated Diagnosis Comments DERMATOLOGY IMAGE EXAM Routine 10/15/2023 12:05 AM CDT documented in this encounter Results * Face 507 Biopsy-Dermatology Image Exam (10/15/2023 12:05 AM CDT) Narrative [facility] - 10/15/2023 4:09 [...] documented as of this encounter Care Teams Tentering Machine Off Bearer Relationship Specialty Start Date End Date Elsewhere, Pcp PCP - General Internal Medicine 11/12/21 documented as of this encounter
--- OUTSIDE RECORDS SUMMARY | 2024-01-13 15:42 | XMS_ITS | Encounter Summary ---
Author Organization [facility] Address [address] [place] [address] Care Team Providers Care Trench Digging Machine Operator Name Role Phone Elsewhere, Pcp Primary Care Provider Unavailabl e Reason for Referral * Outpatient (Routine) - Closed Specialty Diagnoses / Procedures Referred By Contac t Referred To Contact Cardiovascular Disease Diagnoses Finding Cardiac Echocardiogram Enlarged Atrium Left Leslie Cho M.D. [address] [place] [address] [facility] Referral ID Status Reason Start Date Expiration Date Visits Re quested Visits Authorized [id number] Closed 09/13/2017 03/12/2018 1 1 Encounter Details Date Type Department Care Team (Late st Contact Info) Description 09/13/2017 [facility] [address] [place] [address] Leslie Cho M.D. [address] [place] [phone] Finding Cardiac Echocardiogram Enlarged Atrium Left (Primary Dx) Social History Tobacco Use Types Packs/Day Years Used Date Smoking Tobacco: Never Sex and Gender Information Value Date Recorded Sex Assigned at Male 09/16/2017 7:50 PM CDT Gender Identity Male 09/16/2017 7:50 PM CDT Sexual Orientation Straight 09/16/2017 7: 50 PM CDT documented as of this encounter Plan of Treatment Upcoming Encounters Date Type Department Care Team (Late st Contact Info) Description 02/02/2024 1:30 PM CDT Appointment Department of Laboratory Medicine in [address] [phone] Justin Snider M.D., Ph.D. [address] [place] [address] 02/03/2024 1:30 PM CDT Virtual Visit Division of Hematology in [place], [place] [address] [place] [address] Justin Snider M.D., Ph.D. [address] [place] [phone] Scheduled Referrals Name Type Priority Associated Diagnoses Orde r Schedule Cardiovascular Diseases Referral Outpatient Referral Routine Finding Cardiac Echocardiogram Enlarged Atrium Left Expected: 09/13/2017 (Approximate), Expires: 09/13/2020 documented as of this encounter Visit Diagnoses Diagnosis Finding Cardiac Echocardiogram Enlarged Atrium Left- Primary documented in this encounter Additional Health Concerns Infection Onset Date Last Indicated Resolved Time COVID19 Pending 01/11/2020 01/11/2020 01/12/2020 2 :46 AM CDT COVID19 Pending 03/15/2021 03/15/2021 03/16/2021 1 2:48 AM PHOTOGRAPH PRINTER Protective Environment 12/31/2022 12/31/2022 documented as of this encounter Care Teams Trench Digging Machine Operator Relationship Specialty Start Date End Date Elsewhere, Pcp PCP - General Internal Medicine 11/12/21 documented as of this encounter
== END 2024-01-13 15:59 | disposition home or self-care (01) ==
PROVIDERS: PCP Internal Medicine; Visit Provider Internal Medicine
DX: I10 Essential (primary) hypertension (principal)
CPT/HCPCS: 80048; 83735